=== PATIENT | female | born 1975 | race Caucasian/White ===

== ENCOUNTER → 2020-07-19 13:47 | Outpatient (BNVA) | payer MEDICAID, SELFPAY | PROVIDERS: PCP Family Medicine; Visit Provider Nurse Practitioner Family | DX: Z76.89 Persons encountering health services in other specified circumstances (principal) ==

== ENCOUNTER → 2020-07-27 15:27 | Outpatient (BNVA) | payer MEDICAID, SELFPAY | PROVIDERS: PCP Family Medicine; Visit Provider Surgery | DX: K64.4 Residual hemorrhoidal skin tags (principal); K64.8 Other hemorrhoids | CPT/HCPCS: 46600; 99202 ==

== ENCOUNTER 2020-09-02 07:00 | Day surgery (SDC) | payer MEDICAID, SELFPAY ==
[2020-08-29 10:29] VITALS: BMI 25.0
--- NOTE | 2020-08-31 14:17 | P.CONAN_ITS ---
Documented by User: Amparo Bryant 08/31/20 14:18 HPI - Anesthesia Eval Consult details Narrative: 45yo F for Hemorrhoidectomy PMFSH Active Problems Active Problems: All Active Problems (Updated 08/29/20 @ 10:27 by Sonia Rangel) Bleeding hemorrhoids (Acute) Hemorrhoid (Acute) Past Medical History Medical History Bleeding hemorrhoids Constipation Hemorrhoid History of anxiety Family History Family History Father Hx of tongue cancer Mother Alive and well Surgical History Surgical History History of tonsillectomy History of tubal ligation Social History Social History Are you a primary manager critical care to a significant other at home: No Do you presently have visiting nurse or other home services: No Alcohol intake: current Alcohol intake frequency: holidays/special occasions only Alcohol type: beer Smoking Status: Current every day smoker Tobacco Type: Cigarette Packs Per Day: 1 Cigarettes Per Day: 20.0 Years Smoked: 20+ Smoked in Last 30 Days: Yes Patient Interested in Nicotine Replacement: No Patient Given Instructions on How to Stop Smoking: Yes Date Education Initiated: 08/29/20 Use of substances other than those prescribed or required for medical reasons: No Have you been hit, kicked, punched, or otherwise hurt by someone within the past year? If so, by whom?: No Advance Directives: No Advance Directives Information Provided: No Advance Directives on File: No Recently lost weight without trying: No Meds Allergies Allergy/AdvReac Type Severity Reaction Status Date / Time No Known Allergies Allergy Verified 09/02/20 07:12 [No Known Allergies*] Exam Exam Date and Time: August 31, 2020 1417 Height,Weight and Vital Signs: Height 5 ft 3 in Weight 63.957 kg Assessment and Plan Assessment Anesthesia Assessment: Chart Reviewed Documented by User: Rebecca Albarado 09/02/20 07:51 PMFSH Past Medical History Medical History Bleeding hemorrhoids Constipation Hemorrhoid History of anxiety Family History Family History Father Hx of tongue cancer Mother Alive and well Surgical History Surgical History History of tonsillectomy History of tubal ligation Social History Social History Are you a primary manager critical care to a significant other at home: No Do you presently have visiting nurse or other home services: No Alcohol intake: current Alcohol intake frequency: holidays/special occasions only Alcohol type: beer Smoking Status: Current every day smoker Tobacco Type: Cigarette Packs Per Day: 1 Cigarettes Per Day: 20.0 Years Smoked: 20+ Smoked in Last 30 Days: Yes Patient Interested in Nicotine Replacement: No Patient Given Instructions on How to Stop Smoking: Yes Date Education Initiated: 08/29/20 Use of substances other than those prescribed or required for medical reasons: No Have you been hit, kicked, punched, or otherwise hurt by someone within the past year? If so, by whom?: No Advance Directives: No Advance Directives Information Provided: No Advance Directives on File: No Recently lost weight without trying: No Meds Allergies Allergy/AdvReac Type Severity Reaction Status Date / Time No Known Allergies Allergy Verified 09/02/20 07:12 [No Known Allergies*] Exam Airway Mallampati Class: II TM Dist: >3cm Neck ROM: Full
--- NOTE | 2020-09-02 07:22 | MHC.SHP ---
Pre-Procedural Eval Section B Chief Complaint: bleeding hemorrhoids Allergies: Allergies Allergy/AdvReac Type Severity Reaction Status Date / Time No Known Allergies Allergy Verified 09/02/20 07:12 [No Known Allergies*] Plan I have reviewed the history and physical and performed a pertinent physical examination on my patient. No changes have occurred unless specified.
--- NOTE | 2020-09-02 07:24 | MHC.SHP ---
Pre-Procedural Eval Section B Chief Complaint: bleeding hemorrhoids Details of Present Illness: has bleeding and painful hemorrhoids Relevant Family History (Specify if Yes): No Relevant Social History: None Present Medications: see Short Stay Collaborative assessment Medical History: No relevant PMH History of Previous Operations: No relevant previous surgery Allergies: Allergies Allergy/AdvReac Type Severity Reaction Status Date / Time No Known Allergies Allergy Verified 09/02/20 07:12 [No Known Allergies*] Review of Systems Sugical H&P ROS: Negative: Constitution, Cardiovascular, Respiratory, Neurological, Psychiatric, Hem-Onc, Allergic/Immunologic, Gastrointestinal, Genitourinary, Musculoskeletal, Integumentary, Endocrine and Eyes/Ears/Nose/Throat Exam Surgical H&P Exam: Normal: HEENT, Normal: Heart, Normal: Lungs, Normal: Extremities, Normal: Abdomen, Normal: Skin and Normal: Neurological Plan Diagnosis/Plan: Unchanged I have reviewed the history and physical and performed a pertinent physical examination on my patient. No changes have occurred unless specified.
[2020-09-02 07:25] VITALS: BP 124/75; PULSE 77; RESP 16; TEMP 36.7; O2SAT 98
[2020-09-02] MEDS: Lactated Ringers 1,000 ML 100 ML IVCONT (07:33)
--- NOTE | 2020-09-02 09:35 | W.PM.OPN ---
Operative Note Operative Note Date of Service: 09/02/20 Narrative: PREOP DIAGNOSIS: INTERNAL EXTERNAL HEMORRHOIDS POSTOP DIAGNOSIS: THE SAME PROCEDURE DONE: EXAM UNDER ANESTHESIA, HEMORRHOIDECTOMY SURGEON: JOHNIE SINGH MD ANESTHESIA: GENERAL VIA ENDOTRACHEAL TUBE The patient is a 45-year-old female who has had chronic problems with her hemorrhoids. She came to the office because of a long history of pain, swelling, discomfort and bleeding from her hemorrhoids since her last . Examination in the office revealed a bulky hemorrhoid column left anterior. She wanted this removed. She understood technique of the procedure. She was aware of the risks, benefits, and alternatives. She was brought to the operating room and placed in prone char-knife position under general anesthesia via endotracheal tube. A surgical time-out was done. The patient received Cefotan 2 g IV preoperatively. I inserted the Natali Krueger retractor into the anal canal and I examined the anal circumferentially. Again, this hemorrhoidal column on the anterior aspect of the left side was noted and appeared to be a mix of internal external hemorrhoids. I applied Shultz graspers to this to retract this into the field of view. I made a figure-eight stitch at its pedicle using chromic 3-0. I made an incision around this hemorrhoidal column to with the perianal skin using blade 15. I excised this hemorrhoidal column above the plane of sphincters using scissors. I closed this incision using a running chromic 0 stitch. Additional hemostatic [id number] sutures were placed I examined the entire anal canal again circumferentially. There were no other hemorrhoid columns that were of significant size that were seen. There were no fissures or any other lesions. I infiltrated the perianal area with Marcaine 0.5% for possible MILI. The procedure was then completed. The patient tolerated well. There were no complications noted. Initial fine counts sponge and instruments were correct. Estimated blood loss about 10 cc. The patient was extubated without difficulty and transferred to the recovery room with stable vital signs.
[2020-09-02 09:42] VITALS: BP 138/84; PULSE 69; RESP 16; TEMP 36.1; O2SAT 98
--- NOTE | 2020-09-02 09:42 | PM.OP ---
Brief Operative Note Date of Service: 09/02/20 Pre-op diagnosis: Internal and external hemorrhoids Post-op diagnosis: same Procedure: EUA, hemorrhoidectomy Surgeon: Kareem Arce MD Anesthesia: GETA Estimated blood loss (mL): 10 Pathology: other (Hemorrhoid) Condition: stable Disposition: PACU
[2020-09-02 09:47] VITALS: BP 121/80; PULSE 76; RESP 18; O2SAT 97
[2020-09-02 09:52] VITALS: BP 126/82; PULSE 56; RESP 18; O2SAT 97
[2020-09-02 09:57] VITALS: BP 129/80; PULSE 58; RESP 18; O2SAT 96
[2020-09-02 10:12] VITALS: BP 123/78; PULSE 56; RESP 20; TEMP 36.1; O2SAT 99
== END 2020-09-02 11:00 | disposition home or self-care (01) ==
PROVIDERS: PCP Internal Medicine; Visit Provider Surgery
PROC: (CPT 46255; principal; 2020-09-02 08:40)
DX: K64.8 Other hemorrhoids (principal); K64.4 Residual hemorrhoidal skin tags
CPT/HCPCS: 46255; 88304; J1100; J2250; J2405; J3010

== ENCOUNTER → 2020-09-15 09:47 | Outpatient (BNVA) | payer MEDICAID, SELFPAY | PROVIDERS: PCP Internal Medicine; Visit Provider Surgery | DX: K64.9 Unspecified hemorrhoids (principal) | CPT/HCPCS: 99212 ==

== ENCOUNTER 2020-12-12 13:38 | Emergency (ER) | payer MEDICAID, SELFPAY ==
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
[2020-12-12 14:33] VITALS: BP 135/93; PULSE 90; RESP 17; TEMP 36.6; O2SAT 98; BMI 24.7
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
[2020-12-12] MEDS: Ibuprofen 600 MG TABLET PO (16:07)
[2020-12-12] MEDS: LORazepam 1 MG TABLET PO (16:08)
[2020-12-12] MEDS: oxyCODONE HCl Immed Release 5 MG TABLET PO (16:08)
== END 2020-12-12 16:47 | disposition home or self-care (01) ==
PROVIDERS: Emergency Provider Emergency Medicine
DX: S62.327A Displaced fracture of shaft of fifth metacarpal bone, left hand, initial encounter for closed fracture (principal); Y04.2XXA Assault by strike against or bumped into by another person, initial encounter; Y93.9 Activity, unspecified; Y92.9 Unspecified place or not applicable; Y99.9 Unspecified external cause status
CPT/HCPCS: 29125; 73130; 99283

== ENCOUNTER → 2020-12-14 08:30 | Outpatient (BNVA) | payer MEDICAID, SELFPAY | PROVIDERS: Visit Provider Physician Assistant | DX: S62.307A Unspecified fracture of fifth metacarpal bone, left hand, initial encounter for closed fracture (principal) | CPT/HCPCS: 99202 ==

== ENCOUNTER 2020-12-22 12:18 | Day surgery (SDC) | payer MEDICAID, SELFPAY ==
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
[2020-12-22] VITALS (15 sets, daily range): BP systolic 120–163; BP diastolic 71–91; PULSE 44–62; RESP 16–20; TEMP 36.3–37.1; O2SAT 96–99; BMI 24.7
--- NOTE | ~2020-12-22 | FL_ITS ---
EXAMINATION: XR FLUOROSCOPY WITH IMAGES CLINICAL INFORMATION: Fracture fixation COMPARISON: 12/12/2020 TECHNIQUE: Fluoroscopy performed by Dr Bonilla. Fluoroscopy time: 37.6 seconds DAP: 83341.2 mGycm2 Images: 5 FINDINGS: Images demonstrate placement of 2 Liliane wires across the fifth metacarpal diametaphyseal fracture with improved alignment of the fracture fragments of the last images. 1 of the Liliane wires transfixes the fourth and fifth metacarpal heads, the other Liliane wire courses along the long axis of the fifth metacarpal entering through the fifth metacarpal head. FL/FL guidance in OR IMPRESSION: Intraoperative fluoroscopy provided for Liliane wire pin fixation of the fifth metacarpal fracture as described. Please see operative report.
--- NOTE | 2020-12-22 14:18 | PC.NURSE ---
CARE TEAM ÁNGELA SPOKE TO PATIENT BY BEDSIDE.
--- NOTE | 2020-12-22 14:20 | PC.NURSE ---
PATIENT BEING REFERRED TO A [facility] WILL CALL TO FOLLOW UP WITH DAVIDE MONTOYA.
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
[2020-12-22] MEDS: Lactated Ringers 1,000 ML 100 ML IVCONT (14:41)
--- NOTE | 2020-12-22 17:54 | P.OP_ITS ---
Operative Note Operative Note Date of Service: 12/22/20 Narrative: Operative Note Narrative: Preop diagnosis: 1. Left 5th Metacarpal shaft fracture Postop diagnosis: Same Procedure: 1. Left 5th Metacarpal fracture closed reduction percutaneous pinning 2. Ulnar nerve block Surgeon: Alexus Bonilla MD Anesthesia: General Findings: Metacarpal fracture Implants: 0.062 K-wires times 1 0.045 K-wire x1 Tourniquet time: None EBL: Minimal Specimen: None Drains: None Complications: None Disposition: Brought to the recovery room in stable condition Plan: Follow-up in 10-14 days for a wound check, postop radiographs and for placement in a short-arm finger spica cast Anticipate K-wire removal in 4 weeks based on interval bony healing Educate the patient that full fracture healing anticipated in approximately 8-12 weeks. Indications: The patient is 45 years old with left distal 5th metacarpal shaft fracture . The risks and benefits of operative treatment, including but not limited to risk of damage to blood vessels, nerves, tendons, infection, recurrence, delayed or nonunion of fracture, persistent pain or numbness, incomplete resolution of preoperative symptoms, or need for further surgery were discussed with the patient and they wished to proceed with surgery. Procedure: Once consent was obtained patient was brought back to the operating suite and placed in the operating table in a supine position. . Perioperative antibiotics and general anesthesia was administered by the anesthesia team. A tourniquet was applied to the proximal aspect of the left upper extremity and the limb was prepped and draped in a standard surgical fashion. Tourniquet was not inflated during the case. The FluoroScan was used during the case to assist with our fracture reduction and placement of all implants. A closed reduction was performed on the patient's left 5th metacarpal shaft fracture. I placed a single 0.062 K-wire retrograde through the head of the left 5th metacarpal extending proximally across the fracture site to the base of the metacarpal. A 0.045 K-wire was placed transversely through the neck of the 5th metacarpal extending into the head and neck of the 4th metacarpal. Fracture alignment was assessed for both angular and rotational malalignment. Once satisfied with our fracture reduction and implant placement, the K-wires were bent and cut short and pin caps applied. Final fluoroscopic images were then obtained. The wounds were copiously irrigated with normal saline. An ulnar nerve block was then performed by infiltrating about the ulnar nerve at the wrist with some core% plain Marcaine for postop pain control. A Sterile dressing and short volar splint was applied. The patient appears to have tolerated the procedure well and with no complications. All digits were well vascularized at the co nclusion of the case.
--- NOTE | 2020-12-22 17:54 | MHC.SHP ---
Pre-Procedural Eval Section B Chief Complaint: Left 5th metacarpal fracture Allergies: Allergies Allergy/AdvReac Type Severity Reaction Status Date / Time No Known Allergies Allergy Verified 12/14/20 08:33 [No Known Allergies*] Plan I have reviewed the history and physical and performed a pertinent physical examination on my patient. No changes have occurred unless specified.
[2020-12-22] MEDS: Ketorolac Tromethamine 15 MG/ML VIAL 30 MG IV (19:20)
[2020-12-22] MEDS: oxyCODONE HCl Immed Release 5 MG TABLET PO (19:37)
[2020-12-22] MEDS: fentaNYL citrate/PF 100 MCG/2 ML VIAL 50 MCG IVPUSH ×3 (19:56→20:26)
== END 2020-12-22 21:10 | disposition home or self-care (01) ==
PROVIDERS: Visit Provider Orthopaedic Surgery
PROC: (CPT 26608; principal; 2020-12-22 14:10)
DX: S62.327A Displaced fracture of shaft of fifth metacarpal bone, left hand, initial encounter for closed fracture (principal); Y04.0XXA Assault by unarmed brawl or fight, initial encounter; Y93.89 Activity, other specified; Y92.9 Unspecified place or not applicable; Y99.8 Other external cause status; F17.210 Nicotine dependence, cigarettes, uncomplicated
CPT/HCPCS: 26608; J0131; J0690; J1100; J1885; J2405; J3010

== ENCOUNTER → 2020-12-29 12:33 | Outpatient (BNVA) | payer MEDICAID, SELFPAY | PROVIDERS: Visit Provider Physician Assistant | DX: S62.307D Unspecified fracture of fifth metacarpal bone, left hand, subsequent encounter for fracture with routine healing (principal) | CPT/HCPCS: 99202 ==

== ENCOUNTER 2021-01-04 08:28 | Outpatient (REF) | payer MEDICAID, SELFPAY ==
--- NOTE | ~2021-01-04 | XR_ITS ---
EXAMINATION: XR HAND, LEFT CLINICAL INFORMATION: Pain. Fracture. COMPARISON: 12/12/20. 12/22/20. TECHNIQUE: PA, lateral, and oblique views of the left hand. FINDINGS: The fracture of the neck of the fifth metacarpal has been fixed with a longitudinal surgical pin across the fracture and a second pin transfixing the head of the metacarpal to the head of the fourth metacarpal. Alignment is essentially anatomic and unchanged from the intraoperative study. There is no visible callus. XR/XR hand LT min 3V IMPRESSION: Fracture of the neck of the left fifth metacarpal in stable essentially anatomic alignment status post surgical pinning.
== END 2021-01-04 08:29 | disposition home or self-care (01) ==
LOC: HO.HOSX 08:28
PROVIDERS: Visit Provider Orthopaedic Surgery
DX: S62.307D Unspecified fracture of fifth metacarpal bone, left hand, subsequent encounter for fracture with routine healing (principal)
CPT/HCPCS: 73130; 99212

== ENCOUNTER 2021-01-25 10:25 | Outpatient (REF) | payer MEDICAID, SELFPAY ==
--- NOTE | ~2021-01-25 | XR_ITS ---
EXAMINATION: XR HAND, LEFT CLINICAL INFORMATION: Pain. COMPARISON: 01/04/2021 and studies dating back to 01/31/2017. TECHNIQUE: PA, lateral, and oblique views of the left hand. FINDINGS: There is stable appearance of pins in place for oblique fracture of the distal left 5th metacarpal. One pin is seen traversing the fracture with the second pin seen traversing the 4th and 5th metatarsal heads for stabilization. Lucent line remains without definite bony union identified. XR/XR hand LT min 3V IMPRESSION: Stable appearance of pins and alignment for fixation of left 5th metacarpal fracture.
== END 2021-01-25 10:26 | disposition home or self-care (01) ==
LOC: HO.HOSX 10:25
PROVIDERS: Visit Provider Orthopaedic Surgery
DX: S62.307A Unspecified fracture of fifth metacarpal bone, left hand, initial encounter for closed fracture (principal)
CPT/HCPCS: 73130; 99212

== ENCOUNTER 2021-02-22 08:22 | Outpatient (REF) | payer MEDICAID, SELFPAY ==
--- NOTE | ~2021-02-22 | XR_ITS ---
EXAMINATION: XR HAND, LEFT CLINICAL INFORMATION: Fracture 5th metacarpal. Pain. Follow up. COMPARISON: Radiographs left hand 01/25/2021, 01/04/2021. TECHNIQUE: Left hand is imaged in 3 views. FINDINGS: The 2 pins have been removed since prior exam 01/25/2021. The oblique fracture neck 5th metacarpal is well visualized. No visible bridging callus. Alignment appears stable. No destructive process. No new bony abnormality. XR/XR hand LT min 3V IMPRESSION: Left 5th metacarpal fracture unchanged in alignment. No visible bridging callus at this time.
== END 2021-02-22 08:23 | disposition home or self-care (01) ==
LOC: HO.HOSX 08:22
PROVIDERS: Visit Provider Orthopaedic Surgery
DX: S62.307A Unspecified fracture of fifth metacarpal bone, left hand, initial encounter for closed fracture (principal); M25.642 Stiffness of left hand, not elsewhere classified; M79.642 Pain in left hand
CPT/HCPCS: 73130; 99212

== ENCOUNTER 2021-02-27 11:30 | Outpatient (RCR) | payer MEDICAID, SELFPAY ==
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
--- NOTE | 2021-03-14 08:51 | MHC.OT.DC ---
[address] [phone] F: [phone] Occupational Therapy Discharge Note Provider: Dr Bonilla Diagnosis: Left D5 MC fx, post-op repair Date of Surgery: 12/22/20 Date of Evaluation: 02/07/21 Date of Discharge: 03/13/21 Treatments to Date: 5 Cancellations to Date: 2 No Shows to Date: 3 Discharge Status: Visit Non-compliance Discharge Summary: Arely has been seen in OT for management of L D5 MC fx. She is now about 11 weeks post-op, still w/ flex contracture to MCP and IPs, but showing improvements in tissue and flexion range. Pt has been motivated, but is guarded and needs encouragement to increase exercises as part of HEP. She has not attended the past five visit, we will be discharging her at this time. Electronically Signed By: Renay Alexander OTR/L Reviewed/agree with student documentation: N/A Therapist: Please Sign and return to therapist, thank you for your referral.
== END 2021-03-14 08:52 | disposition home or self-care (01) ==
LOC: HO.OT 11:30
PROVIDERS: PCP Internal Medicine; Visit Provider Orthopaedic Surgery
DX: S62.307D Unspecified fracture of fifth metacarpal bone, left hand, subsequent encounter for fracture with routine healing (principal)
CPT/HCPCS: 29130; 97110; 97140; 97165; 97760

== ENCOUNTER 2021-05-07 13:11 | Emergency (ER) | payer MEDICAID, SELFPAY ==
--- NOTE | ~2021-05-07 | US_ITS ---
EXAM: Pelvic Ultrasound CLINICAL INDICATION: Heavy bleeding since March COMPARISON: Pelvic ultrasound February 18, 2020 TECHNIQUE: The pelvis was evaluated using transabdominal and transvaginal imaging. Color Doppler imaging and spectral analysis of the left ovary was also performed. FINDINGS: The uterus measures 10.1 x 4.3 x 5.8 cm in longitudinal by AP by transverse dimension. The endometrial stripe is heterogeneous in appearance, measuring up to 1.5 cm in thickness. Small cystic foci are also noted within the endometrium. The left ovary measures approximately 2.1 x 2.8 x 3.0 cm and contains a simple appearing 3 cm cyst. Spectral analysis reveals normal arterial and venous waveforms in the left ovary. The right ovary measures approximately 2.6 x 1.1 x 1.5 cm and is unremarkable in appearance. A small amount of free fluid is noted adjacent to the right ovary, however, there is no gross free pelvic fluid identified within the pelvic cul-de-sac. US/US pelvic and transvaginal IMPRESSION: 1. Thickened heterogeneous endometrium containing several cystic foci. Clinical correlation recommended. Direct inspection may be warranted. 2. Simple appearing 3 cm left ovarian cyst. 3. A small amount of free fluid is noted adjacent to the right ovary, nonspecific.
[2021-05-07 13:23] VITALS: BP 133/79; PULSE 77; RESP 18; TEMP 37; O2SAT 99; BMI 24.7
[2021-05-07 13:48] LABS: UPreg QC Valid YES; Urine Pregnancy NEGATIVE (NEGATIVE)
[2021-05-07 13:49] LABS: Appearance Urine CLOUDY; Color Urine RED; Glucose Urine UA NEG (NEG); PH 6.5 (5.0-8.0); Specific Gravity - Urine 1.025 (1.005-1.025); UACC Culture Trigger YES; Urine Blood 3+ (NEG); Urine Ketones NEG (NEG); Urine Protein 1+ MG/DL (NEG-TRACE)
--- NOTE | 2021-05-07 13:57 | ED_ITS ---
HPI - Female Genitourinary General Chief complaint: Vaginal Bleeding Stated complaint: vag bleeding/ovarian cyst Time Seen by Provider: 05/07/21 13:55 Source: patient Mode of arrival: ambulatory Limitations: no limitations History of Present Illness MD elicited complaint: vaginal bleeding Pertinent past history: other (ovarian cysts) Onset (ago): week(s) (3+ ) Location of symptoms: suprapubic Severity: mild Quality of pain: cramping Consistency: intermittent Vaginal discharge: none Vaginal bleeding: moderate, heavy and clots Exacerbating factors: none Relieving factors: none Associated symptoms: weakness Treatment prior to arrival: none Patient : No Related Data Previous Rx's Medication Instructions Recorded dicyclomine 10 mg capsule 10 mg PO TID #90 cap 07/19/20 methylcellulose (laxative) 500 mg 500 mg PO DAILY #30 tab 07/19/20 tablet (Citrucel) phenylephrine 0.25 %-mineral oil 1 appl [place] BID-QID PRN #28 g 07/19/20 14 %-petrolatm 74.9 % rectal ointment (Preparation H) docusate sodium 100 mg capsule 100 mg PO BID #60 cap 09/02/20 (Colace) ibuprofen 600 mg tablet 600 mg PO Q6H PRN #30 tab 09/02/20 oxycodone-acetaminophen 5 mg-325 1 - 2 tab PO Q4-6H PRN #30 tab 09/02/20 mg tablet (Percocet) docusate sodium 100 mg capsule 100 mg PO BID #60 cap 09/15/20 (Colace) ibuprofen 600 mg tablet 600 mg PO TID PRN #20 tab 09/15/20 ibuprofen 600 mg tablet 600 mg PO Q6H PRN #20 tab 12/12/20 lorazepam 1 mg tablet (Ativan) 1 mg PO BID PRN #7 tab 12/12/20 oxycodone 5 mg tablet 5 mg PO Q6H PRN #10 tab 12/12/20 oxycodone-acetaminophen 5 mg-325 1 - 2 tab PO Q6H PRN #20 tab 12/22/20 mg tablet (Percocet) medroxyprogesterone 10 mg tablet 10 mg PO DAILY 9 Days #9 tab 05/07/21 (Provera) Allergies Allergy/AdvReac Type Severity Reaction Status Date / Time No Known Allergies Allergy Verified 05/07/21 13:23 [No Known Allergies*] Review of Systems Review of Systems: Constitutional : No Fever, No Chills ENT/Mouth : No sore throat, No Rhinorrhea Eyes: No Eye Pain, No Redness Cardiovascular : No Chest Pain, No SOB Respiratory : No Cough, No Sputum, No Wheezing Gastrointestinal :no Nausea, No Vomiting, No Diarrhea, no abdominal pain, Genitourinary : positive irregular bleeding, No Dysuria, No Urinary Frequency, positive pelvic pain Musculoskeletal : No Myalgias Skin : No rash Neuro : No Weakness, No Headache Psych : No Anxiety/Panic, No Depression Heme/Lymph: No bruising, No Lymphadenopathy Endocrine : No Polyuria, No Polydipsia All other systems reviewed and are negative [facility] Past Medical History Attestation statement: The following information was validated with the patient. Medical History Bleeding hemorrhoids Constipation Hemorrhoid History of anxiety Surgical History History of tonsillectomy History of tubal ligation Family History Family History Father Hx of tongue cancer Mother Alive and well Social History Social History Are you a primary vision care associate to a significant other at home: No Do you presently have visiting nurse or other home services: No Alcohol intake: never Patient Tobacco Use Status: Current everyday Tobacco user Tobacco use type: Cigarette Cigarette Packs Per Day: 1 Cigarettes Per Day: 6 Years Smoked: 20+ Use of substances other than those prescribed or required for medical reasons: No Advance Directives: No Advance Directives Information Provided: No Patient : No Physical Exam Vital Signs: Vital Signs: Last Vital Signs Temp 98.2 F 05/07/21 15:24 Pulse 68 05/07/21 15:24 Resp 14 05/07/21 15:24 BP 147/80 H 05/07/21 15:24 Pulse Ox 98 05/07/21 15:24 Body Mass Index 24.7 Appearance: Alert. Oriented X3. No acute distress. Eyes: Pupils equal, round and reactive to light. conjunctiva ENT: Pharynx normal. Neck: Normal inspection. Neck supple. CVS: Normal heart rate and rhythm. Pulses normal. Respiratory: No respiratory distress. Breath sounds normal. Abdomen: Soft and nontender. Skin: Skin warm and dry. pale skin color. Normal skin turgor. Extremities: No lower extremity edema. No calf ttp Neuro: Oriented X 3. No motor deficit. No sensory deficit. Course Course Course Narrative: no sig bleeding VS stable, H/H stable MDM - Female Genitourinary MDM Narrative Medical decision making narrative: 46 yo female hx of ovarian cysts not on any form of OCPs or control comes in with prolonged vaginal bleeding - no CP/SOB but does feel weak at times. This has never happened before - at this time labs, UPT, US to evaluate cysts/ovaries. Possible start of Provera pending workup. Will need OBGYN follow up Lab Data Result diagrams: 05/07/21 15:22 05/07/21 15:22 Labs: Lab Results 05/07/21 05/07/21 05/07/21 Range/Units 13:34 13:34 15:22 WBC 11.3 H (4.8-10.8) X10*3/uL RBC 4.17 L (4.20-5.50) X10*6/uL Hgb 12.9 (12.0-16.0) g/dl Hct 38.3 (37-47) % MCV 91.8 (80-98) fL MCH 30.9 (27.0-33.0) pg MCHC 33.7 (31.0-35.0) g/dl RDW 12.9 (11.0-16.0) % Plt Count 459 H (160-400) X10*3/uL MPV 8.1 L (9.4-12.3) fL Immature Gran % (Auto) 0.3 (0.0-0.4) % Neut % (Auto) 60.1 (45-73) % Lymph % (Auto) 31.1 (20-40) % [place] % (Auto) 6.1 (2-11) % Eos % (Auto) 1.8 (0-4) % Baso % (Auto) 0.6 (0-2) % Lymph # (Auto) 3.5 (1.2-4.9) X10*3/uL [place] # (Auto) 0.7 (0.1-1.2) X10*3/uL Eos # (Auto) 0.2 (0.0-0.4) X10*3/uL Baso # (Auto) 0.1 (0.0-0.2) X10*3/uL Abs Immat Gran (auto) 0.03 (0.00-0.03) X10*3/uL Absolute Neuts (auto) 6.8 (2.0-8.3) X10*3/uL Absolute Nucleated RBC 0.000 (0.0-0.012) X10*3/uL Nucleated RBC % (auto) 0.0 (0.0-0.2) /100WBC Sodium (135-145) mmol/L Potassium (3.3-5.1) mmol/L Chloride (96-108) mmol/L Carbon Dioxide (22-29) mmol/L Anion Gap (12-20) BUN (9-16) mg/dL Creatinine (0.5-1.4) mg/dL Estim Creat Clear Calc Estimated GFR Random Glucose (60-115) mg/dL Calcium (8.4-10.2) mg/dL Urine Color RED Urine Appearance CLOUDY Urine pH 6.5 (5.0-8.0) Ur Specific [place] 1.025 (1.005-1.025) Urine Protein 1+ H (NEG-TRACE) MG/DL Urine Glucose (UA) NEG (NEG) MG/DL Urine Ketones NEG (NEG) MG/DL Urine Blood 3+ H (NEG) Urine Nitrite TNP Ur Leukocyte Esterase TNP Urine RBC TNTC H (0) /HPF Urine WBC 0 (0-4) /HPF Ur Squamous Epith Cells 1+ /LPF Urine Bacteria TRACE /LPF Urine Test NEGATIVE (NEGATIVE) 05/07/21 Range/Units 15:22 WBC (4.8-10.8) X10*3/uL RBC (4.20-5.50) X10*6/uL Hgb (12.0-16.0) g/dl Hct (37-47) % MCV (80-98) fL MCH (27.0-33.0) pg MCHC (31.0-35.0) g/dl RDW (11.0-16.0) % Plt Count (160-400) X10*3/uL MPV (9.4-12.3) fL Immature Gran % (Auto) (0.0-0.4) % Neut % (Auto) (45-73) % Lymph % (Auto) (20-40) % [place] % (Auto) (2-11) % Eos % (Auto) (0-4) % Baso % (Auto) (0-2) % Lymph # (Auto) (1.2-4.9) X10*3/uL [place] # (Auto) (0.1-1.2) X10*3/uL Eos # (Auto) (0.0-0.4) X10*3/uL Baso # (Auto) (0.0-0.2) X10*3/uL Abs Immat Gran (auto) (0.00-0.03) X10*3/uL Absolute Neuts (auto) (2.0-8.3) X10*3/uL Absolute Nucleated RBC (0.0-0.012) X10*3/uL Nucleated RBC % (auto) (0.0-0.2) /100WBC Sodium 140 (135-145) mmol/L Potassium 4.2 (3.3-5.1) mmol/L Chloride 105 (96-108) mmol/L Carbon Dioxide 27 (22-29) mmol/L Anion Gap 12 (12-20) BUN 10 (9-16) mg/dL Creatinine 0.82 (0.5-1.4) mg/dL Estim Creat Clear Calc 78.5 Estimated GFR > 60 Random Glucose 93 (60-115) mg/dL Calcium 9.4 (8.4-10.2) mg/dL Urine Color Urine Appearance Urine pH (5.0-8.0) Ur Specific [place] (1.005-1.025) Urine Protein (NEG-TRACE) MG/DL Urine Glucose (UA) (NEG) MG/DL Urine Ketones (NEG) MG/DL Urine Blood (NEG) Urine Nitrite Ur Leukocyte Esterase Urine RBC (0) /HPF Urine WBC (0-4) /HPF Ur Squamous Epith Cells /LPF Urine Bacteria /LPF Urine Test (NEGATIVE) Discharge Plan Discharge Clinical Impression: Dysfunctional uterine bleeding Patient Disposition: Home, Self-Care Instructions: Dysfunctional Uterine Bleeding (ED) Additional Instructions: return to ED for any worsening symptoms or concerns 1.? Thickened heterogeneous endometrium containing several cystic foci. Clinical correlation recommended. Direct inspection may be warranted. 2.? Simple appearing 3 cm left ovarian cyst. 3.? A small amount of free fluid is noted adjacent to the right ovary, nonspecific. you are not anemic you will need to see OBGYN Prescriptions: New medroxyprogesterone [Provera] 10 mg tablet 10 mg PO DAILY 9 Days Qty: 9 RF: 0 No Action oxycodone-acetaminophen [Percocet] 5-325 mg tablet 1 - 2 tab PO Q4-6H PRN (Reason: pain) Qty: 30 RF: 0 docusate sodium [Colace] 100 mg capsule 100 mg PO BID Qty: 60 RF: 2 ibuprofen 600 mg tablet 600 mg PO Q6H PRN (Reason: pain) Qty: 30 RF: 0 oxycodone 5 mg tablet 5 mg PO Q6H PRN (Reason: pain) Qty: 10 RF: 0 lorazepam [Ativan] 1 mg tablet 1 mg PO BID PRN (Reason: anxiety) Qty: 7 RF: 0 ibuprofen 600 mg tablet 600 mg PO Q6H PRN (Reason: pain) Qty: 20 RF: 0 oxycodone-acetaminophen [Percocet] 5-325 mg tablet 1 - 2 tab PO Q6H PRN (Reason: pain (scale score 4-6)) Qty: 20 RF: 0 Preparation H 0.25-14-74.9 % ointment 1 appl [place] BID-QID PRN (Reason: hemorrhoids) Qty: 28 RF: 2 dicyclomine 10 mg capsule 10 mg PO TID Qty: 90 RF: 2 Citrucel 500 mg tablet 500 mg PO DAILY Qty: 30 RF: 2 ibuprofen 600 mg tablet 600 mg PO TID PRN (Reason: pain) Qty: 20 RF: 1 docusate sodium [Colace] 100 mg capsule 100 mg PO BID Qty: 60 RF: 0 Referrals: Johnny Encarnacion MD [Physician] - 1 week Stand Alone Forms: Work/School Release
[2021-05-07 14:00] LABS: Bacteria Urine TRACE /LPF; RBC Urine TNTC /HPF (0); Squamous Epithelial Cell Urine 1+ /LPF; WBC Urine 0 /HPF (0-4)
[2021-05-07 15:24] VITALS: BP 147/80; PULSE 68; RESP 14; TEMP 36.8; O2SAT 98
[2021-05-07 15:27] LABS: MANUAL DIFF FLAG NO
[2021-05-07 15:28] LABS: Basophils Absolute Auto 0.1 X10*3/uL (0.0-0.2); Basophils Percent Auto 0.6 % (0-2); Eosinophils Absolute Auto 0.2 X10*3/uL (0.0-0.4); Eosinophils Percent Auto 1.8 % (0-4); Hematocrit 38.3 % (37-47); Hemoglobin 12.9 g/dl (12.0-16.0); Imm Gran Abs Auto 0.03 X10*3/uL (0.00-0.03); Imm Gran Pct Auto 0.3 % (0.0-0.4); Lymphocytes Absolute Auto 3.5 X10*3/uL (1.2-4.9); Lymphocytes Percent Auto 31.1 % (20-40); Mean Corpuscular HGB Conc 33.7 g/dl (31.0-35.0); Mean Corpuscular Hemoglobin 30.9 pg (27.0-33.0); Mean Corpuscular Volume 91.8 fL (80-98); Mean Platelet Volume 8.1 fL (9.4-12.3); Monocytes Absolute Auto 0.7 X10*3/uL (0.1-1.2); Monocytes Percent Auto 6.1 % (2-11); Neutrophils Absolute Auto 6.8 X10*3/uL (2.0-8.3); Neutrophils Percent Auto 60.1 % (45-73); Platelet Count 459 X10*3/uL (160-400); Red Blood Count 4.17 X10*6/uL (4.20-5.50); Red Cell Distribution Width 12.9 % (11.0-16.0); White Blood Count 11.3 X10*3/uL (4.8-10.8)
[2021-05-07 15:42] LABS: Anion Gap 12 (12-20); Blood Urea Nitrogen 10 mg/dL (9-16); Calcium 9.4 mg/dL (8.4-10.2); Carbon Dioxide 27 mmol/L (22-29); Chloride 105 mmol/L (96-108); Creatinine Clr Calc Pharmacy 78.5; Estimated Glomerular Filt Rate > 60; Glucose Random 93 mg/dL (60-115); Potassium 4.2 mmol/L (3.3-5.1); Sodium 140 mmol/L (135-145)
[2021-05-07] MEDS: medroxyPROGESTERone Acetate 5 MG TABLET 10 MG PO (16:29)
== END 2021-05-07 16:36 | disposition home or self-care (01) ==
PROVIDERS: Emergency Provider Emergency Medicine
DX: N93.8 Other specified abnormal uterine and vaginal bleeding (principal)
CPT/HCPCS: 36415; 76830; 76856; 80048; 81001; 81025; 85025; 86850; 86900; 86901; 87086; 99284

== ENCOUNTER 2021-05-12 12:25 | Emergency (ER) | payer MEDICAID, SELFPAY | END 2021-05-12 14:54 | disposition left against medical advice (07) | PROVIDERS: Emergency Provider Emergency Medicine | DX: N93.8 Other specified abnormal uterine and vaginal bleeding (principal); R10.2 Pelvic and perineal pain ==

== ENCOUNTER 2021-05-15 11:40 | Outpatient (REF) | payer MEDICAID, SELFPAY ==
[2021-05-15 13:49] LABS: Hematocrit 36.2 % (37-47); Hemoglobin 12.1 g/dl (12.0-16.0); Mean Corpuscular HGB Conc 33.4 g/dl (31.0-35.0); Mean Corpuscular Volume 92.8 fL (80-98); Mean Platelet Volume 8.1 fL (9.4-12.3); Platelet Count 469 X10*3/uL (160-400); Red Cell Distribution Width 12.7 % (11.0-16.0); White Blood Count 14.9 X10*3/uL (4.8-10.8)
[2021-05-15 14:30] LABS: HCG Quantitative < 2 mIU/mL; TSH reflex Free T4 1.09 uIU/mL (0.32-4.0)
[2021-05-16 02:44] LABS: CT PCR NOT DETECTED (Not Detect.); NG PCR NOT DETECTED (Not Detect.)
[2021-05-17 16:41] LABS: HPV mRNA E6/E7 rflx Not Detected (Not Detected)
== END 2021-05-15 11:41 | disposition home or self-care (01) ==
LOC: HO.LAB 11:40
PROVIDERS: Visit Provider Obstetrics & Gynecology
DX: Z01.411 Encounter for gynecological examination (general) (routine) with abnormal findings (principal); Z11.51 Encounter for screening for human papillomavirus (HPV); Z11.3 Encounter for screening for infections with a predominantly sexual mode of transmission; N93.9 Abnormal uterine and vaginal bleeding, unspecified
CPT/HCPCS: 36415; 84443; 84702; 85027; 87491; 87591; 87624; 88142; 99212

== ENCOUNTER 2021-05-19 07:57 | Day surgery (SDC) | payer MEDICAID, SELFPAY ==
--- NOTE | 2021-05-18 12:10 | HO.ANESPROP2 ---
Documented by User: Amparo Bryant NP 05/18/21 12:11 HPI - Anesthesia Eval Consult details Narrative: 46yo F for D&C Hysteroscopy, Poss Polypectomy, Poss Myomectomy s/p finger ORIF 12/2020 with GA-LMA 4 PMFSH Active Problems Active Problems: All Active Problems (Updated 05/15/21 @ 12:50 by Johnny Encarnacion MD) Abnormal uterine bleeding (AUB) (Acute) Stiffness of left hand joint (Acute) Fracture of fifth metacarpal bone of left hand (Acute) Bleeding hemorrhoids (Acute) Hemorrhoid (Acute) Past Medical History Medical History Bleeding hemorrhoids Constipation Hemorrhoid History of anxiety Family History Family History Father Hx of tongue cancer Mother Alive and well Surgical History Surgical History H/O hand surgery History of tonsillectomy History of tubal ligation Social History Social History Are you a primary childcare administrator to a significant other at home: No Do you presently have visiting nurse or other home services: No Alcohol intake: never Patient Tobacco Use Status: Former Tobacco user Tobacco use type: Cigarette Cigarette Packs Per Day: 1 Cigarettes Per Day: 6 Years Smoked: 20+ Use of substances other than those prescribed or required for medical reasons: No Are you DNR?: No Advance Directives: No Advance Directives Information Provided: Yes Recently lost weight without trying: No Nutrition Risks: No Nutritional Risk Patient : No Meds Allergies Allergy/AdvReac Type Severity Reaction Status Date / Time No Known Allergies Allergy Verified 05/15/21 12:22 [No Known Allergies*] Exam Exam Date and Time: May 18, 2021 1210 Pertinent Lab Results Pertinent Lab Results: Laboratory Tests 05/07/21 05/15/21 15:22 13:33 WBC 14.9 H Hgb 12.1 Hct 36.2 L Plt Count 469 H Sodium 140 Potassium 4.2 Chloride 105 Carbon Dioxide 27 BUN 10 Creatinine 0.82 Assessment and Plan Assessment Anesthesia Assessment: Chart Reviewed Documented by User: Lynne Mills MD 05/19/21 10:34 PMFSH Past Medical History Medical History Bleeding hemorrhoids Constipation Hemorrhoid History of anxiety Family History Family History Father Hx of tongue cancer Mother Alive and well Family history of problems with anesthesia: No Surgical History Surgical History H/O hand surgery History of tonsillectomy History of tubal ligation History of Problems with Anesthesia: No Social History Social History Are you a primary childcare administrator to a significant other at home: No Do you presently have visiting nurse or other home services: No Alcohol intake: never Patient Tobacco Use Status: Former Tobacco user Tobacco use type: Cigarette Cigarette Packs Per Day: 1 Cigarettes Per Day: 6 Years Smoked: 20+ Use of substances other than those prescribed or required for medical reasons: No Are you DNR?: No Advance Directives: No Advance Directives Information Provided: Yes Recently lost weight without trying: No Nutrition Risks: No Nutritional Risk Patient : No Meds Allergies Allergy/AdvReac Type Severity Reaction Status Date / Time No Known Allergies Allergy Verified 05/15/21 12:22 [No Known Allergies*] Exam Height,Weight and Vital Signs: Height 5 ft 3 in Weight 70.307 kg Vital Signs Temp Pulse Resp BP Pulse Ox 98.0 F 79 16 113/75 97 05/19/21 08:38 05/19/21 08:38 05/19/21 08:38 05/19/21 08:38 05/19/21 08:38 Pertinent Lab Results Pertinent Lab Results: Laboratory Tests 05/07/21 05/15/21 15:22 13:33 WBC 14.9 H Hgb 12.1 Hct 36.2 L Plt Count 469 H Sodium 140 Potassium 4.2 Chloride 105 Carbon Dioxide 27 BUN 10 Creatinine 0.82 Lab Results 05/19/21 Range/Units 08:04 Urine Test NEGATIVE (NEGATIVE) Airway Mallampati Class: II TM Dist: >3cm Neck ROM: Full Heart: RRR Lungs: CTAB Assessment and Plan Assessment Anesthesia Assessment: Anesthesia Plan Discussed Final Anesthetic Review Family History of Problems with Anesthesia: No History of Problems with Anesthesia: No NPO: Yes ASA Class: II Final Preanesthetic Review: No Changes in Pt Med Stat, Meds/Allgs Chart Reviewed, Consent Obtained/Reviewed and Anes Risks/Benef Reviewed Patient Risk: Low Procedure Risk: Low Assessment/Block/Sedation in SS: Assess/Block/Sedation-SS Anesthetic Plan Anesthetic Plan: GA Disposition: Standard PACU
[2021-05-19] VITALS (7 sets, daily range): BP systolic 99–124; BP diastolic 62–75; PULSE 59–79; RESP 16–18; TEMP 36.3–36.7; O2SAT 97–100; BMI 27.4
[2021-05-19 08:23] LABS: UPreg QC Valid YES; Urine Pregnancy NEGATIVE (NEGATIVE)
--- NOTE | 2021-05-19 08:35 | MHC.SHP ---
Pre-Procedural Eval Section A Date of Service: 05/19/21 The patient is an INPATIENT: No Changes since office visit: No Cold of Flu in the past 2 weeks, No New Medical Problems, No Changes in Medication and No Patient answered all questions The History & Physical has been completed within 30 days and I have reviewed it.: Yes Section B Chief Complaint: AUB Allergies: Allergies Allergy/AdvReac Type Severity Reaction Status Date / Time No Known Allergies Allergy Verified 05/15/21 12:22 [No Known Allergies*] Plan Diagnosis/Plan: Unchanged I have reviewed the history and physical and performed a pertinent physical examination on my patient. No changes have occurred unless specified.
[2021-05-19] MEDS: Lactated Ringers 1,000 ML 100 ML IVCONT (08:46)
--- NOTE | 2021-05-19 09:38 | P.BOP_ITS ---
Brief Operative Note Date of Service: 05/19/21 Pre-op diagnosis: Abnormal uterine bleeding Procedure: Hysteroscopy D&C Surgeon: Johnny Encarnacion MD Anesthesia: MAC Was an [employer] Fitness Instructor used for this Procedure?: No Estimated blood loss (mL): 0 Pathology: other (Endometrial Scrapping) Condition: stable Disposition: PACU
--- NOTE | 2021-05-19 09:39 | P.OP_ITS ---
Operative Note Operative Note Date of Service: 05/19/21 Narrative: Preop Diagnosis: Abnormal uterine bleeding Operation: Diagnostic Hysteroscopy, Dilataion & Curettage Post Op Diagnosis: normal endometrial and endocervical cavity no evidence of pathology QBL: Minimal Anesthesia: MAC Surgeon: Johnny Encarnacion MD Geosciences Professor: None Complication: None Pathology: Endometrial Scrapings Procedure: The patient was put in the dorsal lithotomy position, scrubbed, and draped in the usual manner. A sterile speculum was inserted in the patient's vagina. The anterior lip of the cervix was grasped with a single tooth tenaculum. The cervix was dilated up t o 5 mm, then the scope was inserted in the patient's uterus. Inspection revealed normal endocervical & endometrial cavity with no evidence of pathology. The scope was taken out of the uterine cavity , then sharp curetting was carried on with no complications. At the end of the procedure, all instruments were taken out of the patient uterine and vaginal cavity. The single tooth tenaculum was removed and homeostasis was assured using pressure. The patient tolerated the procedure well and was transferred to the PACU in a stable condition.
== END 2021-05-19 10:50 | disposition home or self-care (01) ==
PROVIDERS: PCP Emergency Medicine; Visit Provider Obstetrics & Gynecology
PROC: 0UDB8ZZ Extraction of Endometrium, Via Natural or Artificial Opening Endoscopic (ICD-10-PCS; CPT 58558; principal; 2021-05-19 09:30)
DX: N93.9 Abnormal uterine and vaginal bleeding, unspecified (principal); K64.8 Other hemorrhoids; K59.00 Constipation, unspecified; Z98.51 Tubal ligation status; F17.210 Nicotine dependence, cigarettes, uncomplicated
CPT/HCPCS: 58558; 81025; 88305; J1100; J2250; J2405; J3010

== ENCOUNTER 2021-05-21 09:07 | Emergency (ER) | payer MEDICAID, SELFPAY ==
[2021-05-21 09:16] VITALS: BP 125/75; PULSE 84; RESP 18; TEMP 36.7; O2SAT 99; BMI 26.5
--- NOTE | 2021-05-21 09:38 | ED_ITS ---
HPI - General Adult General Chief complaint: General Medical Stated complaint: L SIDE NECK PAIN Time Seen by Provider: 05/21/21 09:38 Source: patient Mode of arrival: ambulatory Limitations: no limitations History of Present Illness HPI narrative: patient with left sided neck pain. Patient with recent uterine biopsy on . No fever. patient presents holding left neck Onset (ago): day(s) Radiation: neck Severity: moderate Quality: sharp Pain Consistency: constant Associated symptoms: denies other symptoms Treatments prior to arrival: none Related Data Previous Rx's Medication Instructions Recorded medroxyprogesterone 10 mg tablet 10 mg PO DAILY 30 Days #30 tab 05/15/21 (Provera) cyclobenzaprine 10 mg tablet 10 mg PO TID #10 tab 05/21/21 naproxen 500 mg tablet (Naprosyn) 500 mg PO BID #20 tab 05/21/21 ibuprofen 600 mg tablet 600 mg PO Q6H PRN #20 tab 05/22/21 tramadol 50 mg tablet 50 mg PO Q6H PRN #20 tab 05/22/21 Allergies Allergy/AdvReac Type Severity Reaction Status Date / Time No Known Allergies Allergy Verified 05/15/21 12:22 [No Known Allergies*] Review of Systems Constitutional: Constitutional: Reports no additional constitutional complaints Eyes: Eyes: Reports no additional eye complaints ENT: Denies dizziness Cardiovascular: Cardiovascular: Reports no additional cardiovascular complaints Respiratory: Respiratory: Reports as per HPI Gastrointestinal: Gastrointestinal: Reports no additional gastrointestinal complaints Genitourinary: Genitourinary: Reports no additional female genitourinary c omplaints Musculoskeletal: Musculoskeletal: Reports no additional musculoskeletal complaints Integumentary/Breasts: Skin/Breast: Denies rash Neurologic: Reports system reviewed and no additional complaints, except as documented, Denies dizziness and Denies Sensory deficit (Neuro) Psychiatric: Psychiatric: Denies anxiety PMFSH Past Medical History Medical History Bleeding hemorrhoids Constipation Hemorrhoid History of anxiety Surgical History H/O hand surgery History of tonsillectomy History of tubal ligation Family History Family History Father Hx of tongue cancer Mother Alive and well Social History Social History Are you a primary career and guidance counselor to a significant other at home: No Do you presently have visiting nurse or other home services: No Alcohol intake: never Patient Tobacco Use Status: Former Tobacco user Tobacco use type: Cigarette Cigarette Packs Per Day: 1 Cigarettes Per Day: 6 Years Smoked: 20+ Advance Directives: No Physical Exam Vital Signs: Vital Signs: Last Vital Signs Temp 98.0 F 05/21/21 09:16 Pulse 84 05/21/21 09:16 Resp 18 05/21/21 10:19 BP 125/75 05/21/21 09:16 Pulse Ox 99 05/21/21 09:16 Body Mass Index 26.5 Const: General: healthy appearing Nutritional Appearance: average body habitus Orientation/consciousness: oriented to person and patient oriented x3 Limitations: no limitations HENMT: Head: Yes normal to inspection Ears: external ears normal General nose exam: Normal external nose present Mouth: Normal oral and palatal mucosa present and oropharynx normal Throat: Yes posterior oropharynx normal Eyes: General: appearance normal, both eyes and all related structures Neck: Other: left sternocleidomastoid and left trapezius tenderness, Patient unable to move neck. No erythema, no swelling Neck: Yes normal visual inspection Chest: Chest palpation & inspection: normal inspection of the chest Resp: Auscultation: clear to auscultation bilaterally Cardio: Jugular venous distension: no JVD Rate: regular rate Rhythm: regular rhythm Heart sounds: S1 normal heart sound present and S2 normal heart sound present GI: Inspection: Yes normal to inspection Palpation (GI): Soft to palpation, nontender and No hepatosplenomegaly present Auscultation: normal bowel sounds : General: Yes no CVA tenderness Back/Spine/Pelvis: Back: no CVA tenderness Skin: General skin exam: no rashes or lesions noted Neuro: General: oriented to person and patient oriented x3 Cranial nerves: Yes CN's II-XII intact bilaterally Motor exam (neuro): 5/5 motor strength present throughout Sensory Exam: No Sensory deficit (Neuro) Extrem: General: Yes normal to inspection Psych: Appearance: grossly normal Course Reevaluation(s) Reevaluation #1: Will treat patient for torticollis with Toradol and flexeril and dc home Time: 09:45 Discharge Plan Discharge Clinical Impression: Acute torticollis Patient Disposition: Home, Self-Care Instructions: Neck Pain (ED) Prescriptions: New cyclobenzaprine 10 mg tablet 10 mg PO TID Qty: 10 RF: 0 naproxen [Naprosyn] 500 mg tablet 500 mg PO BID Qty: 20 RF: 0 No Action tramadol 50 mg tablet 50 mg PO Q6H PRN (Reason: pain) Qty: 20 RF: 0 ibuprofen 600 mg tablet 600 mg PO Q6H PRN (Reason: pain) Qty: 20 RF: 0 medroxyprogesterone [Provera] 10 mg tablet 10 mg PO DAILY 30 Days Qty: 30 RF: 0 Referrals: Dixon Alas FNP-C [Primary Care Provider] - 1 week Interventions: ED Discharge Assessment Last Done: 05/21/21 10:20 Discharge Date/Time: 05/21/21 10:20
[2021-05-21] MEDS: Cyclobenzaprine HCl 10 MG TABLET PO (09:56)
[2021-05-21] MEDS: Ketorolac Tromethamine 60 MG/2 ML VIAL IM (09:56)
[2021-05-21 10:19] VITALS: RESP 18
== END 2021-05-21 10:20 | disposition home or self-care (01) ==
PROVIDERS: Emergency Provider Emergency Medicine; PCP Emergency Medicine
DX: M43.6 Torticollis (principal); M54.2 Cervicalgia
CPT/HCPCS: 96372; 99283; 99284; J1885

== ENCOUNTER 2021-05-21 23:55 | Emergency (ER) | payer MEDICAID, SELFPAY ==
[2021-05-21 23:58] VITALS: BP 136/78; PULSE 94; O2SAT 98
[2021-05-22 00:09] VITALS: BP 129/79; PULSE 75; RESP 20; TEMP 36.6; O2SAT 99; BMI 26.5
--- NOTE | 2021-05-22 01:05 | ED_ITS ---
HPI - Neck Pain/Injury General Chief Complaint: Neck Pain/Injury Stated Complaint: neck pain Time Seen by Provider: 05/22/21 00:19 Source: patient Mode of arrival: ambulatory Limitations: no limitations History of Present Illness HPI Narrative: Patient complaining of pain in the occipital area for last 3 days was seen here yesterday morning was given nsaid comes back again for the same pain by ambulance Related Data Previous Rx's Medication Instructions Recorded medroxyprogesterone 10 mg tablet 10 mg PO DAILY 30 Days #30 tab 05/15/21 (Provera) cyclobenzaprine 10 mg tablet 10 mg PO TID #10 tab 05/21/21 naproxen 500 mg tablet (Naprosyn) 500 mg PO BID #20 tab 05/21/21 ibuprofen 600 mg tablet 600 mg PO Q6H PRN #20 tab 05/22/21 tramadol 50 mg tablet 50 mg PO Q6H PRN #20 tab 05/22/21 Allergies Allergy/AdvReac Type Severity Reaction Status Date / Time No Known Allergies Allergy Verified 05/15/21 12:22 [No Known Allergies*] Review of Systems Review of Systems: Yes all other systems are reviewed and are negative [facility] Past Medical History Medical History Bleeding hemorrhoids Constipation Hemorrhoid History of anxiety Surgical History H/O hand surgery History of tonsillectomy History of tubal ligation Family History Family History Father Hx of tongue cancer Mother Alive and well Social History Social History Are you a primary pharmacy customer care specialist to a significant other at home: No Do you presently have visiting nurse or other home services: No Alcohol intake: never Patient Tobacco Use Status: Former Tobacco user Tobacco use type: Cigarette Cigarette Packs Per Day: 1 Cigarettes Per Day: 6 Years Smoked: 20+ Advance Directives: No Physical Exam Vital Signs: Vital Signs: Last Vital Signs Temp 97.8 F 05/22/21 00:09 Pulse 75 05/22/21 00:09 Resp 20 05/22/21 00:09 BP 129/79 05/22/21 00:09 Pulse Ox 99 05/22/21 00:09 Body Mass Index 26.5 Const: General: no acute distress Orientation/consciousness: patient oriented x3 HENMT: Head: Yes normocephalic, Yes atraumatic and No Temporal artery tenderness present Head images: 1. Tenderness in the left greater occipital area Ears: TM's normal bilaterally Face and sinus: Yes normal facial exam Mouth: Normal oral and palatal mucosa present Teeth and gingiva: dentition normal Throat: Yes posterior oropharynx normal Neck: Neck: Yes full ROM and No tender Resp: Effort & Inspection: normal respiratory effort Auscultation: clear to auscultation bilaterally Cardio: Palpation: normal PMI Rate: regular rate Rhythm: regular rhythm Heart sounds: S1 normal heart sound present and S2 normal heart sound present Neuro: General: patient oriented x3 and no focal motor deficits MDM - Neck Pain/Injury MDM Narrative Medical decision making narrative: Patient with occipital neuralgia wanted to give lidocaine injection at greater occipital nerve but patient refused will discharge patient home on tramadol and ibuprofen Discharge Plan Discharge Clinical Impression: Occipital neuralgia of left side Patient Disposition: Home, Self-Care Instructions: General Headache (ED) Additional Instructions: Take pain medication as prescribed Follow with PCP Prescriptions: New tramadol 50 mg tablet 50 mg PO Q6H PRN (Reason: pain) Qty: 20 RF: 0 ibuprofen 600 mg tablet 600 mg PO Q6H PRN (Reason: pain) Qty: 20 RF: 0 No Action cyclobenzaprine 10 mg tablet 10 mg PO TID Qty: 10 RF: 0 naproxen [Naprosyn] 500 mg tablet 500 mg PO BID Qty: 20 RF: 0 medroxyprogesterone [Provera] 10 mg tablet 10 mg PO DAILY 30 Days Qty: 30 RF: 0
--- NOTE | 2021-05-22 01:08 | PC.NURSE ---
at bedside for primary eval.
[2021-05-22] MEDS: Ibuprofen 600 MG TABLET PO (01:22)
[2021-05-22 01:26] VITALS: RESP 20
--- NOTE | 2021-05-22 01:26 | PC.NURSE ---
Pt refusing Lidocaine injection for nerve pain. Pt yelling NO NO NO NO, NOT IN MY NECK!!! Pt medicated with Ibuprofen per MAR. Pt expressing frustration @ discharge plan. Pt refusing DC VS.
== END 2021-05-22 01:28 | disposition home or self-care (01) ==
PROVIDERS: Emergency Provider Internal Medicine
DX: M54.81 Occipital neuralgia (principal)
CPT/HCPCS: 99283; 99284

== ENCOUNTER → 2021-06-01 11:30 | Outpatient (BNVA) | payer MEDICAID, SELFPAY | PROVIDERS: PCP Emergency Medicine; Visit Provider Obstetrics & Gynecology ==

== ENCOUNTER 2021-06-26 14:12 | Outpatient (REF) | payer MEDICAID, SELFPAY | END 2021-06-26 14:13 | disposition home or self-care (01) | LOC: HO.LAB 14:12 | PROVIDERS: PCP Emergency Medicine; Visit Provider Obstetrics & Gynecology | DX: R87.615 Unsatisfactory cytologic smear of cervix (principal) | CPT/HCPCS: 81025; 88142; 99212 ==

== ENCOUNTER → 2021-09-04 12:47 | Outpatient (BNVA) | payer MEDICAID, SELFPAY | PROVIDERS: Visit Provider Obstetrics & Gynecology ==

== ENCOUNTER → 2021-12-04 11:49 | Outpatient (BNVA) | payer MEDICAID, SELFPAY | PROVIDERS: PCP Family Medicine; Visit Provider Obstetrics & Gynecology | DX: N93.9 Abnormal uterine and vaginal bleeding, unspecified (principal) | CPT/HCPCS: 99212 ==

== ENCOUNTER 2021-12-21 14:52 | Outpatient (REF) | payer MEDICAID, SELFPAY ==
--- NOTE | ~2021-12-21 | MM_ITS ---
EXAMINATION: MM SCREENING DIGITAL BREAST TOMOSYNTHESIS, BILATERAL CLINICAL INFORMATION: Screening. Asymptomatic. No prior breast imaging. Age 46. No known family history breast cancer. The lifetime risk of breast cancer based on the Tyrer-Cuzick Model is 7%. COMPARISON: None (current study represents initial baseline exam). TECHNIQUE: Digital breast tomosynthesis is performed in both the craniocaudal and mediolateral oblique views along with computer-aided detection (CAD). Synthesized 2D images are generated from the tomosynthesis. FINDINGS: There are scattered areas of fibroglandular density (ACR BI-RADS breast composition Category b). Right breast parenchymal pattern is unremarkable. There is no mass or architectural abnormality. Neither breast shows abnormal calcifications. The bilateral axilla and skin contours are normal. Left CC view has nodular parenchymal asymmetry central outer breast mid depth and central inner breast mid depth. As this represents initial baseline exam, patient will be recalled for additional imaging to further characterize. MM/MM tomosynthesis screening BI IMPRESSION: Left: -Nodular parenchymal asymmetry CC view mid outer quadrant and mid inner quadrant. Right: -No mammographic evidence of malignancy. ASSESSMENT: BI-RADS 0: Incomplete - Need Additional Imaging Evaluation RECOMMENDATION: 1. Additional views of the left breast (rolled CC x 2; ML). 2. Targeted ultrasound if warranted after review of the additional views. 3. Radiology department staff will contact the patient for additional imaging. This patient's information was entered into a reminder system with a target due date for their next mammogram.
== END 2021-12-21 14:53 | disposition home or self-care (01) ==
LOC: HO.MAMMO 14:52
PROVIDERS: Visit Provider Obstetrics & Gynecology
DX: Z12.31 Encounter for screening mammogram for malignant neoplasm of breast (principal)
CPT/HCPCS: 77063; 77067

== ENCOUNTER 2022-01-01 10:59 | Outpatient (REF) | payer MEDICAID, SELFPAY ==
--- NOTE | ~2022-01-01 | MM_ITS ---
EXAMINATION: MM DIAGNOSTIC DIGITAL BREAST TOMOSYNTHESIS, LEFT CLINICAL INFORMATION: Recall from baseline screening for nodular parenchymal asymmetry central outer and central inner left breast on CC view. TC 7%. COMPARISON: Mammography: 12/21/2021 (baseline, BI-RADS 0). TECHNIQUE: Digital breast tomosynthesis is performed. 2D images are generated from the tomosynthesis. The following views of the left breast are obtained: rolled CC x3, ML. FINDINGS: There are scattered areas of fibroglandular density (ACR BI-RADS breast composition Category b). Additional views show benign-appearing parenchymal asymmetry without underlying mass or architectural abnormality. Results are discussed with the patient at time of visit. MM/MM tomosynthesis added views L IMPRESSION: No mammographic evidence of malignancy. ASSESSMENT: BI-RADS 2: Benign RECOMMENDATION: Routine annual mammography screening. This patient's information was entered into a reminder system with a target due date for their next mammogram.
== END 2022-01-01 11:00 | disposition home or self-care (01) ==
LOC: HO.MAMMO 10:59
PROVIDERS: Visit Provider Obstetrics & Gynecology
DX: N64.89 Other specified disorders of breast (principal)
CPT/HCPCS: 77061; 77065

== ENCOUNTER → 2022-04-06 14:16 | Outpatient (BNV) | payer MEDICAID, SELFPAY | PROVIDERS: PCP Family Medicine; Visit Provider Internal Medicine | DX: D75.839 Thrombocytosis, unspecified (principal) | CPT/HCPCS: 99204; 99213; 99214 ==

== ENCOUNTER 2022-07-30 13:28 | Outpatient (REF) | payer MEDICAID, SELFPAY ==
[2022-07-30 18:55] LABS: CT PCR NOT DETECTED (Not Detect.); NG PCR NOT DETECTED (Not Detect.)
[2022-07-31 10:41] LABS: BV Int Neg Control Negative (Negative); BV Int Pos Control Positive (Positive)
[2022-08-01 16:57] LABS: HPV mRNA E6/E7 rflx Not Detected (Not Detected)
== END 2022-07-30 13:29 | disposition home or self-care (01) ==
LOC: HO.LNP 13:28
PROVIDERS: PCP Family Medicine; Visit Provider Advanced Practice Midwife
DX: Z01.411 Encounter for gynecological examination (general) (routine) with abnormal findings (principal); Z11.51 Encounter for screening for human papillomavirus (HPV); N93.9 Abnormal uterine and vaginal bleeding, unspecified
CPT/HCPCS: 0353U; 87480; 87510; 87624; 87660; 88142

== ENCOUNTER 2023-05-24 14:20 | Outpatient (REF) | payer MEDICAID, SELFPAY | END 2023-05-24 14:21 | disposition home or self-care (01) | LOC: HO.MAMMO 14:20 | PROVIDERS: PCP Family Medicine; Visit Provider Family Medicine | DX: Z12.31 Encounter for screening mammogram for malignant neoplasm of breast (principal) | CPT/HCPCS: 77063; 77067 ==

== ENCOUNTER → 2023-05-24 15:30 | Outpatient (BNV) | payer MEDICAID, SELFPAY | PROVIDERS: PCP Family Medicine; Visit Provider Radiology Diagnostic Radiology | DX: Z12.31 Encounter for screening mammogram for malignant neoplasm of breast (principal) | CPT/HCPCS: 77063; 77067 ==

== ENCOUNTER 2023-09-05 11:39 | Outpatient (REF) | payer MEDICAID, SELFPAY ==
--- NOTE | ~2023-09-05 | XR_ITS ---
EXAMINATION: XR KNEE, RIGHT CLINICAL INFORMATION: Pain. COMPARISON: None available. TECHNIQUE: AP, lateral, tunnel, and sunrise views of the right knee. FINDINGS: No fracture or joint effusion. Alignment is anatomic. Joint spaces are maintained. No abnormal soft tissue calcification. XR/XR knee LT 4V IMPRESSION: Normal right knee. EXAMINATION: XR KNEE, LEFT CLINICAL INFORMATION: Pain. COMPARISON: None available. TECHNIQUE: AP, lateral, tunnel, and sunrise views of the left knee. FINDINGS: No fracture or joint effusion. Alignment is anatomic. Joint spaces are maintained. No abnormal soft tissue calcification. IMPRESSION: Normal left knee.
--- NOTE | ~2023-09-05 | XR_ITS ---
EXAMINATION: XR ELBOW, RIGHT CLINICAL INFORMATION: Medial epicondyle pain COMPARISON: 07/27/2019 TECHNIQUE: AP, lateral, and oblique views of the right elbow. FINDINGS: The bones and soft tissues are normal. No fracture or joint effusion. Alignment is anatomic. Joint spaces are maintained. XR/XR elbow RT min 3V IMPRESSION: Normal right elbow.
--- NOTE | ~2023-09-05 | XR_ITS ---
EXAMINATION: XR KNEE, RIGHT CLINICAL INFORMATION: Pain. COMPARISON: None available. TECHNIQUE: AP, lateral, tunnel, and sunrise views of the right knee. FINDINGS: No fracture or joint effusion. Alignment is anatomic. Joint spaces are maintained. No abnormal soft tissue calcification. XR/XR knee RT 4V IMPRESSION: Normal right knee. EXAMINATION: XR KNEE, LEFT CLINICAL INFORMATION: Pain. COMPARISON: None available. TECHNIQUE: AP, lateral, tunnel, and sunrise views of the left knee. FINDINGS: No fracture or joint effusion. Alignment is anatomic. Joint spaces are maintained. No abnormal soft tissue calcification. IMPRESSION: Normal left knee.
--- NOTE | ~2023-09-05 | XR_ITS ---
EXAMINATION: XR LUMBOSACRAL SPINE CLINICAL INFORMATION: Paraspinal muscle spasm. COMPARISON: None available. TECHNIQUE: AP and lateral views of the lumbar spine and Shah and lateral views of the lumbosacral junction. FINDINGS: The vertebral bodies and posterior elements are normal. The disc spaces are preserved and the vertebral alignment is normal. The paraspinal soft tissues are normal. There are aortoiliac atherosclerotic calcifications. Pelvic phleboliths are noted. XR/XR lumbar spine 2-3V IMPRESSION: Unremarkable examination.
== END 2023-09-05 11:40 | disposition home or self-care (01) ==
LOC: HO.XRAY 11:39
PROVIDERS: Visit Provider Family Medicine
DX: M25.561 Pain in right knee (principal); M25.562 Pain in left knee; G89.29 Other chronic pain; M62.830 Muscle spasm of back; M77.01 Medial epicondylitis, right elbow
CPT/HCPCS: 72100; 73080; 73564

== ENCOUNTER 2023-09-09 09:02 | Outpatient (REF) | payer MEDICAID, SELFPAY ==
[2023-09-09 09:10] LABS: MANUAL DIFF FLAG NO
[2023-09-09 09:25] LABS: Basophils Absolute Auto 0.1 X10*3/uL (0.0-0.2); Basophils Percent Auto 0.7 % (0-2); Eosinophils Absolute Auto 0.3 X10*3/uL (0.0-0.4); Eosinophils Percent Auto 3.1 % (0-4); Hematocrit 41.6 % (37.0-47.0); Hemoglobin 13.8 g/dl (12.0-16.0); Imm Gran Abs Auto 0.04 X10*3/uL (0.00-0.03); Imm Gran Pct Auto 0.4 % (0.0-0.4); Lymphocytes Absolute Auto 3.3 X10*3/uL (1.2-4.9); Lymphocytes Percent Auto 34.6 % (20-40); Mean Corpuscular HGB Conc 33.2 g/dl (31.0-35.0); Mean Corpuscular Hemoglobin 30.1 pg (27.0-33.0); Mean Corpuscular Volume 90.8 fL (80.0-98.0); Mean Platelet Volume 8.4 fL (9.4-12.3); Monocytes Absolute Auto 0.9 X10*3/uL (0.1-1.2); Neutrophils Absolute Auto 4.9 x10*3/uL (2.0-8.3); Neutrophils Percent Auto 52.2 % (45-73); Platelet Count 439 X10*3/uL (160-400); Red Blood Count 4.58 X10*6/uL (4.20-5.50); Red Cell Distribution Width 13.7 % (11.0-16.0); White Blood Count 9.5 X10*3/uL (4.8-10.8)
[2023-09-09 10:03] LABS: Alanine Aminotransferase 30 U/L (0-31); Albumin Level 4.3 g/dL (3.5-5.0); Alkaline Phosphatase 105 U/L (39-117); Anion Gap 13 (12-20); Aspartate Amino Transferase 33 U/L (5-31); Bilirubin Total 0.2 mg/dL (0.0-1.0); Blood Urea Nitrogen 14 mg/dL (9-16); Calcium 9.5 mg/dL (8.4-10.2); Carbon Dioxide 24 mmol/L (22-29); Chloride 105 mmol/L (96-108); Cholesterol 242 mg/dL (<200); Estimated Glomerular Filt Rate > 60; Glucose Random 109 mg/dL (60-115); HDL Cholesterol 38 mg/dL (>40); LDL Cholesterol Calculated 168 mg/dL (<100); Potassium 4.2 mmol/L (3.3-5.1); Sodium 138 mmol/L (135-145); Total Protein 7.5 g/dL (6.5-8.0); Triglycerides 182 mg/dL (<150)
[2023-09-09 10:19] LABS: TSH reflex Free T4 1.95 uIU/mL (0.32-4.0)
== END 2023-09-09 09:03 | disposition home or self-care (01) ==
LOC: HO.LAB 09:02
PROVIDERS: Visit Provider Family Medicine
DX: I10 Essential (primary) hypertension (principal)
CPT/HCPCS: 36415; 80053; 80061; 84443; 85025

== ENCOUNTER 2023-09-19 08:59 | Outpatient (AMB) | payer MEDICAID, SELFPAY ==
--- NOTE | 2023-09-19 09:10 | MHC.OFFVIS ---
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 Required: No Information Interpreted: clinical only Chip Frier: Chip Frier Present Allergies No Known Allergies [No Known Allergies*] Allergy (Verified 09/19/23 09:12) Medication List - Last Reconciled 09/19/23 by Shital Hummel CNM amlodipine 1 tab PO DAILY blood pressure test kit-large As directed bupropion HCl 1 tab PO DAILY njljmdjcks-elyjsmrlgg-ymy-cod [id number] mg 1 cap PO Q8H PRN ferrous sulfate 325 mg PO BID metronidazole 500 mg PO BID 7 days rosuvastatin 10 mg PO DAILY Is last menstrual period known: No (unsure date) HPI 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 She can not remember when her last period was but it might of been a couple of months ago she has not sure she does not keep track and she does not write it down she had a problem with her. Years ago and had biopsy done surgically with Dr. Encarnacion and thereafter he placed her on monthly Provera and she has not been on that for a while and she says the prescription ran out but after a while she was reporting normal periods. She has not been feeling good she has a cold that started last week of some sort but she said she is COVID negative and does not believe she is contagious. She has had all sorts of aches and pains in her all of her joints and her back and she has had x-rays done and her doctor did lot of tests and she has a follow-up visit with her doctor at the [facility] next week and is going to be talking to her about everything including lab tests that said all of her cholesterol levels and liver studies were high and that she has muscle spasms and she is going to talk about that with her Additionally she has talked to her doctor about not emptying her bladder fully and she said she is going to be talking more with her doctor about that as well. She reports not feeling good and is down she does have a therapist to calls her every week and she feels better after she talks to her. She has not sexually active with anyone right now but she really misses having babies she had her baby's 2 years apart from each other and she has 3 living children 1 she lost at 5 months and she thinks about having another baby every now and then she did have her tubes tied but she said that the doctor told her to be careful that sometimes they can grow back after awhile. She denies having any hot flashes. When she missed her. She was worried that she is going through menopause and she is feels like she has not ready for that yet. [facility] Medical History (Updated 09/19/23 @ 10:00 by Shital Hummel CNM) History of anxiety Bleeding hemorrhoids Constipation Hemorrhoid Surgical History (Updated 09/19/23 @ 09:56 by Shital Hummel CNM) H/O hand surgery History of tubal ligation History of tonsillectomy Family History Father Hx of tongue cancer Mother Alive and well Social History Household Members: Family Housing: Apartment Are you a primary transition of care specialist to a significant other at home: No Do you presently have visiting nurse or other home services: No Alcohol intake: never Patient Tobacco Use Status: Current everyday Tobacco user Tobacco use type: Cigarette Cigarette Packs Per Day: 4 Years Smoked: 20+ service: No Current occupational status: disabled Female Reproductive History Menstrual Age of Menarche: 14 Duration of menses: 3-5 days control method: permanent sterilization Total pregnancies: 4 Full term: 3 Date of last pap smear: 07/30/22 (negative,previous pap 2020,neg.) History of abnormal pap smear: No Date of Mammogram: 05/24/23 (negative) History of abnormal mammogram: No Physical Exam Vital Signs: Last Vital Signs BP 138/70 09/19/23 09:11 BMI result Body Mass Index 29.4 Const General: healthy appearing, comfortable, no acute distress, well developed and alert Nutritional Appearance: average body habitus Orientation/consciousness: patient oriented x3 Limitations: no limitations HEENT Head: Yes normocephalic Neck Neck: Yes normal visual inspection Chest Chest palpation & inspection: normal inspection of the chest Breast/axilla inspection: normal inspection of the breasts and normal inspection of the axillae Breast/axilla palpation: normal palpation of the breasts and normal palpation of the axillae Resp Effort & Inspection: normal respiratory effort GI Inspection: Yes normal to inspection, No Abdominal wall edema and No distended Palpation (GI): Soft to palpation and nontender Other: No Pap or cultures indicated this year. Speculum exam within normal limits vagina pink and moist cervix difficult to see secondary to redundant vaginal tissue but smooth pink mobile nontender uterus nontender midposition bladder not full but may have some residual by palpation. Patient has good tone with Kegel see discussion on trying to empty bladder fully. General: Yes bladder normal to palpation External Female Exam: normal external appearance and normal appearance of the urethra Speculum Exam - Vagina: normal appearance of the vagina, normal palpation and normal vaginal discharge Speculum Exam - Cervix: normal appearance of the cervix, normal palpation and nontender Bimanual exam- vagina & uterus: normal bimanual exam, normal palpation, uterine size normal, bladder normal to palpation, consistency normal, normal palpation, uterine mobility normal, uterine shape normal, No Cervical tenderness present, non-tender and no cervical motion tenderness Bimanual Exam- Adnexa, other: normal adnexae, no masses, normal and No adnexal tenderness Neuro General: patient oriented x3 Assessment & Plan Assessment & Plan (1) Cervical cancer screening: Comment: 07/30/2022 Pap is negative with negative HPV. Code(s): Z12.4 - Encounter for screening for malignant neoplasm of cervix (2) Screen for sexually transmitted diseases: Code(s): Z11.3 - Encounter for screening for infections with a predominantly sexual mode of transmission (3) Women's annual routine gynecological examination: Code(s): Z01.419 - Encounter for gynecological examination (general) (routine) without abnormal findings (4) Abnormal uterine bleeding (AUB): Comment: Resolved on cyclic Provera; no longer on that missed last period. 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 She can not remember when her last period was but it might of been a couple of months ago she has not sure she does not keep track and she does not write it down she had a problem with her. Years ago and had biopsy done surgically with Dr. Encarnacion and thereafter he placed her on monthly Provera and she has not been on that for a while and she says the prescription ran out but after a while she was reporting normal periods. She has not been feeling good she has a cold that started last week of some sort but she said she is COVID negative and does not believe she is contagious. She has had all sorts of aches and pains in her all of her joints and her back and she has had x-rays done and her doctor did lot of tests and she has a follow-up visit with her doctor at the [facility] next week and is going to be talking to her about everything including lab tests that said all of her cholesterol levels and liver studies were high and that she has muscle spasms and she is going to talk about that with her Additionally she has talked to her doctor about not emptying her bladder fully and she said she is going to be talking more with her doctor about that as well. She reports not feeling good and is down she does have a therapist to calls her every week and she feels better after she talks to her. She has not sexually active with anyone right now but she really misses having babies she had her baby's 2 years apart from each other and she has 3 living children 1 she lost at 5 months and she thinks about having another baby every now and then she did have her tubes tied but she said that the doctor told her to be careful that sometimes they can grow back after awhile. She denies having any hot flashes. When she missed her. She was worried that she is going through menopause and she is feels like she has not ready for that yet. She said she has been getting mammograms through her primary care provider so she is not in need of an order for that. She has her appointment with her primary care provider on the 25 of September next week. She will be following up on all of the above. Her last Pap smear was negative in 2022 and her previous Pap smear was negative in 2020 she does not remember any history of abnormals. I discussed ways of trying to feel better and to move to help with muscle spasms and consider making a heating pad with a damp towel in the microwave but be very careful not to either said the house on fire or burn herself and heated up in 32nd in increments. She has a 7-year-old granddaughter who comes to her house every day who she loves and she takes care of. Discussed maybe turning on so music and dancing with her granddaughter to get moving. Also now that spring is coming to consider going for walk outside and move more could that makes everyone feel better. Also discussed completely emptying her bladder and described descriptively what can happen when the bladder does not fully empty and some strategies to try and ensure she empties and discuss this with her primary as well. Discussed that her next Pap smear would be in 2027. I did urge her to keep track of her periods and if she ever has 3 months when she misses a. Then she might need to be seen again and she might need to talk with Dr. Encarnacion about going back on the cyclic Provera. Also discussed her feelings about some day wanting to have another baby that she misses those days and to certain extent this is a very common thing but discussed things in perspective of her age and health and history of tubal ligation and the challenges that would be involved as well as consideration to enjoying her grandchild and maybe discussing this with her therapist too. Coding Level of Care Code Est Pt Prev Care 40-64y(70632) Diagnoses Cervical cancer screening Z12.4 Screen for sexually transmitted diseases Z11.3 Women's annual routine gynecological examination Z01.419 Abnormal uterine bleeding (AUB) N93.9 Urinary retention with incomplete bladder emptying R33.9 Perimenopause N95.1
[2023-09-19 09:11] VITALS: BP 138/70; BMI 29.4
== END 2023-09-19 10:24 | disposition home or self-care (01) ==
LOC: HO.HWSM 09:00
PROVIDERS: PCP Family Medicine; Visit Provider Advanced Practice Midwife
DX: Z01.419 Encounter for gynecological examination (general) (routine) without abnormal findings (principal); N93.9 Abnormal uterine and vaginal bleeding, unspecified; R33.9 Retention of urine, unspecified; N95.1 Menopausal and female climacteric states
CPT/HCPCS: 99396

== ENCOUNTER → 2023-09-19 08:59 | Outpatient (BNVA) | payer MEDICAID, SELFPAY | PROVIDERS: PCP Family Medicine; Visit Provider Advanced Practice Midwife | DX: Z01.419 Encounter for gynecological examination (general) (routine) without abnormal findings (principal); Z12.4 Encounter for screening for malignant neoplasm of cervix; Z11.3 Encounter for screening for infections with a predominantly sexual mode of transmission; N93.9 Abnormal uterine and vaginal bleeding, unspecified; N95.1 Menopausal and female climacteric states; R33.9 Retention of urine, unspecified | CPT/HCPCS: 99396 ==

== ENCOUNTER 2023-10-03 13:35 | Outpatient (REF) | payer MEDICAID, SELFPAY ==
--- NOTE | ~2023-10-03 | US_ITS ---
EXAMINATION: US PELVIS CLINICAL INFORMATION: Pelvic pain, vaginal bleeding, last menstrual period past 2. COMPARISON: 05/07/2021, 02/08/2020 Pelvic ultrasound. TECHNIQUE: Ultrasound of the pelvis is performed using both transabdominal and transvaginal transducers along with Doppler. Transvaginal imaging is performed due to inadequate visualization transabdominally. FINDINGS: The uterus is heterogeneous and measures 8.9 x 4.4 x 6.9 cm. A 1.0 x 1.0 x 0.7 cm right fibroid. Ultrasound of 02/18/2020 demonstrated a 1.2 x 1.2 x 1.1 cm left body fibroid. Heterogeneous myometrium with multiple small cystic spaces. Endometrium is abnormal in appearance with multiple small cystic spaces, complex, heterogeneous and echogenic with thickness of 16 mm. Nabothian cysts present. Left ovary measures 1.1 x 2.1 x 1.7 cm, volume 2.1 mL and is unremarkable. Right ovary measures 3.3 x 2.7 x 2.2 cm, volume 10.3 mL. A 2.5 x 1.8 x 2.3 cm right ovarian cyst is mildly complex with moderate nodularity of the cyst raphael and possible thin septations. Recommend follow-up ultrasound in 6-12 weeks. US/US pelvic and transvaginal IMPRESSION: 1. Abnormal appearance of the endometrium with multiple small cystic spaces, complex, heterogeneous and echogenic with thickness of 16 mm. Gynecologic consultation and possible biopsy recommended. 2. Heterogeneous myometrium with multiple small cystic spaces. 3. A 2.5 cm right ovarian cyst is mildly complex with moderate nodularity of the cyst raphael and possible thin septations. Recommend follow-up ultrasound in 6-12 weeks. This study was presented today October 07, 2023 for interpretation. PSA staff will provide results to referring provider at this time.
== END 2023-10-03 13:36 | disposition home or self-care (01) ==
LOC: HO.US 13:35
PROVIDERS: PCP Family Medicine; Visit Provider Family Medicine
DX: R10.2 Pelvic and perineal pain (principal)
CPT/HCPCS: 76830; 76856

== ENCOUNTER 2023-10-23 13:37 | Outpatient (REF) | payer MEDICAID, SELFPAY ==
--- NOTE | ~2023-10-23 | US_ITS ---
EXAMINATION: US SOFT TISSUE NECK CLINICAL INFORMATION: Right-sided neck pain, throat pain, no mass on exam, pain with swallowing. COMPARISON: None available. TECHNIQUE: Ultrasound of the neck soft tissues is performed with high- frequency bundy-scale imaging and color Doppler. FINDINGS: Multiple borderline atypical right cervical lymph nodes, largest as follows in the mid neck measure 0.8 x 0.5 x 0.8 cm, 1.0 x 0.4 x 0.8 cm and 1.9 x 0.5 x 0.8 cm. US/US soft tiss head and/or neck IMPRESSION: Multiple borderline atypical nodes as detailed above in the right cervical region. Correlation with clinical exam recommended to determine further management. Recommend followup ultrasound in 3 months. This study was presented today October 30, 2023 for interpretation. Prompt priority results supplied at this time to the referring provider as requested by the provider.
== END 2023-10-23 13:38 | disposition home or self-care (01) ==
LOC: HO.US 13:37
PROVIDERS: PCP Family Medicine; Visit Provider Family Medicine
DX: R07.0 Pain in throat (principal)
CPT/HCPCS: 76536

== ENCOUNTER 2023-10-29 09:33 | Outpatient (REF) | payer MEDICAID, SELFPAY | END 2023-10-29 09:34 | disposition home or self-care (01) | LOC: HO.LNP 09:33 | PROVIDERS: PCP Family Medicine; Visit Provider Obstetrics & Gynecology | DX: N93.9 Abnormal uterine and vaginal bleeding, unspecified (principal); N83.299 Other ovarian cyst, unspecified side | CPT/HCPCS: 81025; 99212 ==

== ENCOUNTER 2023-10-29 09:33 | Outpatient (AMB) | payer MEDICAID, SELFPAY ==
--- NOTE | 2023-10-29 09:35 | A.OFFVIS_ITS ---
Intake Vital Signs 10/29/23 09:37 Height 5 ft 3 in Weight 166 lb BMI 29.4 BP 114/70 Intake Visit Reasons: vaginal bleeding Intake Note: Bleeding since 09/20/23 Electric Range Servicer Required: Yes Electric Range Servicer Language: Reliability Technologist Name: micheline [id number] Information Interpreted: non-clinical & clinical Mid Level Game Designer: Mid Level Game Designer Present (Melida) Allergies No Known Allergies [No Known Allergies*] Allergy (Verified 10/29/23 09:37) HPI HPI Comments History of Present Illness Details Presenting referred from PCP regarding heavy menstrual cycles over the last few months. On 09/09/2023 H&H was 13.8/41.6, TSH within normal Last co testing was in 08/13 was negative Last mammogram was in 06/13 BI-RADS 1 Pelvic ultrasound done read in 10/04/23 showed the following: The uterus is heterogeneous and measures 8.9 x 4.4 x 6.9 cm. A 1.0 x 1.0 x 0.7 cm right fibroid. Ultrasound o f 02/18/2020 demonstrated a 1.2 x 1.2 x 1.1 cm left body fibroid. Heterogeneous myometrium with multiple small cystic spaces. Endometrium is abnormal in appearance with multiple small cystic spaces, complex, heterogeneous and echogenic with thickness of 16 mm. Nabothian cysts present. Left ovary measures 1.1 x 2.1 x 1.7 cm, volume 2.1 mL and is unremarkable. Right ovary measures 3.3 x 2.7 x 2.2 cm, volume 10.3 mL. A 2.5 x 1.8 x 2.3 cm right ovarian cyst is mildly comp gato with moderate nodularity of the cyst raphael and possible thin septations. Recommend follow-up ultrasound in 6-12 weeks. [facility] Medical History History of anxiety Bleeding hemorrhoids Constipation Hemorrhoid Surgical History H/O hand surgery History of tubal ligation History of tonsillectomy Family History Father Hx of tongue cancer Mother Alive and well Social History Household Members: Family Housing: Apartment Are you a primary ocular care technician to a significant other at home: No Do you presently have visiting nurse or other home services: No Alcohol intake: never Patient Tobacco Use Status: Current everyday Tobacco user Tobacco use type: Cigarette Cigarette Packs Per Day: 4 Years Smoked: 20+ service: No Current occupational status: disabled Female Reproductive History Menstrual Age of Menarche: 14 Review of Systems Const All systems reviewed & are unremarkable except as noted in HPI and below Card Reports as per HPI Resp Reports as per HPI GI Reports as per HPI and Reports no additional complaints Reports as per HPI Physical Exam Vital Signs: Last Vital Signs BP 114/70 10/29/23 09:37 BMI result Body Mass Index 29.4 Const General: cooperative, healthy appearing and comfortable Chest Chest palpation & inspection: normal inspection of the chest and normal palpation of entire chest wall Breast/axilla inspection: normal inspection of the breasts and normal inspection of the axillae Breast/axilla palpation: normal palpation of the breasts, normal palpation of the axillae and no axillary lymphadenopathy Resp Effort & Inspection: normal respiratory effort Auscultation: clear to auscultation bilaterally Percussion: percussion normal Cardio Palpation: normal PMI Rate: regular rate Rhythm: regular rhythm Heart sounds: no murmurs and no rubs Peripheral pulses: Peripheral pulses 2+ throughout GI Inspection: Yes normal to inspection Palpation (GI): Soft to palpation, nontender, no guarding, not rigid and No hepatosplenomegaly present Percussion: Yes normal to percussion Auscultation: normal bowel sounds Rectal Exam - Female: deferred General: Yes bladder normal to palpation External Female Exam: No lesion Speculum Exam - Vagina: normal appearance of the vagina, normal palpation, normal vaginal discharge and not erythematous Speculum Exam - Cervix: normal appearance of the cervix and normal palpation Bimanual exam- vagina & uterus: normal bimanual exam, normal palpation, uterine size normal, bladder normal to palpation, consistency normal and normal palpation Bimanual Exam- Adnexa, other: normal adnexae, no masses and no tenderness Results AMB Test Urine AMB Test Urine Negative Last Edit by DAVID Martino on 10/29/23 09:50 Results Reviewed Results Reviewed: Laboratory Last Values Tst Clinic Negative 10/29/23 09:49 Assessment & Plan Assessment & Plan (1) Abnormal uterine bleeding (AUB): Code(s): N93.9 - Abnormal uterine and vaginal bleeding, unspecified Plan: GC and chlamydia taken CBC, TSH, prolactin, HCG, FSH/LH and repeat pelvic ultrasound ordered. Discussed with the patient the different causes of abnormal bleeding including thyroid disorders, uterine and ovarian pathology, endometrial hyperplasia, carcinoma and other potential causes. Discussed with the patient the work up including CBC (to r/o anemia), TSH, FSH/LH, prolactin pelvic Ultrasound, endometrial biopsy to r/o endometrial pathology. All questions answered and the patient verbalized understanding. Instructed the patient to schedule an appointment for an endometrial biopsy in 2 weeks. (2) Complex ovarian cyst: Code(s): N83.299 - Other ovarian cyst, unspecified side Plan: Discussed with the patient the complex ovarian cyst by ultrasound. Discussed with the patient the Ultrasound findings, the main limitation of transvaginal ultrasonography alone as a diagnostic tool to distinguish benign from malignant masses relates to its lack of specificity and low positive predictive value for cancer. The differential diagnosis discussed with the patient includes the following but not limited to: benign and malignant gynecological and non-gynecological causes. Laboratory evaluation include UPT and GC/CT , serum tumor marker CA 125 . Discussed with the patient that CA 125 is a protein associated with epithelial ovarian malignancies, but also frequently expressed at lower levels by nonmalignant tissue. Elevation of CA 125 levels may occur in nonmalignant gynecologic conditions, and in non-gynecologic cancers, It is most useful in postmenopausal women and in identifying non mucinous epithelial cancer. The CA 125 level is elevated in 80% of patients with epithelial ovarian cancer but in only 50% of patients with stage I disease. The overall sensitivity of CA 125 testing in distinguishing benign from malignant adnexal masses reportedly ranges from 61% to 90%; discussed with the patient the specificity, positive predictive value and negative predictive value. Discussed with the patient options of treatment , in case CA 125 is not elevated, including laparoscopy ovarian cystectomy/oophorectomy vs. expectant management with repeat US in repeating pelvic US in 6 weeks from previous US. If the ovarian complex cyst is persistent larger and / or more complex looking, or higher CA 125 will refer to gynecologic Oncology. All pros, cons, risks and benefits of each approach were discussed with the patient including but not limited to a delay in the diagnosis and treatment of ovarian cancer affecting the prognosis; The patient decided to go ahead with expectant management. Instructions given the patient to schedule a 3 months follow-up ultrasound appointment. All questions were answered & the patient verbalized understanding and agreed with the plan. Orders: Orders CT NG by PCR Today N93.9 - Abnormal uterine and vaginal bleeding, unspecified TSH reflex Free T4 Today N93.9 - Abnormal uterine and vaginal bleeding, unspecified HCG Quantitative Today N93.9 - Abnormal uterine and vaginal bleeding, unspecified Follicle Stimulating Hormone Today N93.9 - Abnormal uterine and vaginal bleeding, unspecified US pelvic and transvaginal 11/18/23 N83.299 - Other ovarian cyst, unspecified side AMB HCG Urine Test Today N93.9 - Abnormal uterine and vaginal bleeding, unspecified Complete Blood Count no Diff Today N93.9 - Abnormal uterine and vaginal bleeding, unspecified Prolactin Today N93.9 - Abnormal uterine and vaginal bleeding, unspecified Lutenizing Hormone Today N93.9 - Abnormal uterine and vaginal bleeding, unspecified Coding Level of Care Code Est Pt Level 3 (65110) Diagnoses Abnormal uterine bleeding (AUB) N93.9 Complex ovarian cyst N83.299
[2023-10-29 09:37] VITALS: BP 114/70; BMI 29.4
== END 2023-10-29 10:30 | disposition home or self-care (01) ==
LOC: HO.HWS 09:33
PROVIDERS: PCP Family Medicine; Visit Provider Obstetrics & Gynecology
DX: N93.9 Abnormal uterine and vaginal bleeding, unspecified (principal); N83.299 Other ovarian cyst, unspecified side
CPT/HCPCS: 99213

== ENCOUNTER 2023-10-29 10:36 | Outpatient (REF) | payer MEDICAID, SELFPAY ==
[2023-10-29 11:49] LABS: Hematocrit 34.9 % (37.0-47.0); Hemoglobin 11.5 g/dl (12.0-16.0); Mean Corpuscular Hemoglobin 29.6 pg (27.0-33.0); Mean Corpuscular Volume 89.9 fL (80.0-98.0); Mean Platelet Volume 8.7 fL (9.4-12.3); Platelet Count 490 X10*3/uL (160-400); Red Blood Count 3.88 X10*6/uL (4.20-5.50); Red Cell Distribution Width 12.8 % (11.0-16.0); White Blood Count 10.3 X10*3/uL (4.8-10.8)
[2023-10-29 12:50] LABS: HCG Quantitative < 2 mIU/mL; TSH reflex Free T4 2.24 uIU/mL (0.32-4.0)
[2023-10-29 18:06] LABS: CT PCR NOT DETECTED (Not Detect.); NG PCR NOT DETECTED (Not Detect.)
[2023-10-30 07:18] LABS: Follicle Stimulating Hormone 65.1 mIU/mL; Lutenizing Hormone 19.2 mIU/mL; Prolactin 6.5 ng/mL
== END 2023-10-29 10:37 | disposition home or self-care (01) ==
LOC: HO.LAB 10:36
PROVIDERS: PCP Family Medicine; Visit Provider Obstetrics & Gynecology
DX: N93.9 Abnormal uterine and vaginal bleeding, unspecified (principal)
CPT/HCPCS: 0353U; 81025; 83001; 83002; 84146; 84443; 84702; 85027; 99212

== ENCOUNTER 2023-10-30 11:59 | Outpatient (AMB) | payer MEDICAID, SELFPAY ==
--- NOTE | 2023-10-30 12:29 | A.OFFVIS_ITS ---
Intake Vital Signs 10/30/23 12:35 Height 5 ft 3 in Weight 166 lb BMI 29.4 BP 124/74 Intake Visit Reasons: EMB Disability Representative Required: Yes Disability Representative Language: Kinyarwanda Information Interpreted: non-clinical & clinical Thermodynamic Physicist: Thermodynamic Physicist Present (Aidyn) Allergies No Known Allergies [No Known Allergies*] Allergy (Verified 10/30/23 12:40) Is last menstrual period known: Yes Last menstrual period: 10/29/23 Post menopausal: No Patient : No HPI HPI Comments History of Present Illness Details Presenting for EMB PFSH Medical History History of anxiety Bleeding hemorrhoids Constipation Hemorrhoid Surgical History H/O hand surgery History of tubal ligation History of tonsillectomy Family History Father Hx of tongue cancer Mother Alive and well Social History Household Members: Family Housing: Apartment Are you a primary pediatric acute care unit nurse to a significant other at home: No Do you presently have visiting nurse or other home services: No Alcohol intake: never Patient Tobacco Use Status: Current everyday Tobacco user Tobacco use type: Cigarette Cigarette Packs Per Day: 4 Years Smoked: 20+ Patient : No service: No Current occupational status: disabled Female Reproductive History Menstrual Age of Menarche: 14 Date of last menstrual period: 10/29/23 control method: permanent sterilization Physical Exam Vital Signs: Last Vital Signs BP 124/74 10/30/23 12:35 BMI result Body Mass Index 29.4 Office Procedures Endometrial Biopsy Details: The patient was counseled regarding the indication and benefits of endometrial sampling to rule out endometrial pathology including not limited to endometrial hyperplasia or endometrial cancer and others; The alternatives (Either do nothing vs. hysteroscopy D&C) & the risks were discussed with the patient including but not limited: pain, uterine perforation, bleeding, infection, possible injury to bladder, bowel, ureter, possible need for blood transfusion with all its possible risks. The patient verbalized understanding all questions answered and signed consent. UPT done in the office was negative The patient was placed into the dorsal lithotomy position; a speculum was inserted in the vagina. Using aseptic technique for the procedure, the cervix was cleansed with Betadine. The anterior lip of the cervix was grasped with a single tooth tenaculum. The uterus was sounded to 7 cm with a 4 mm Pipelle was used. Tissues samples were obtained and placed in formalin, in a patient labeled container and sent to the pathology department. At the end of the procedure, there was minimal bleeding noted The patient tolerated the procedure well and was discharged in good condition with the following instructions: Nothing in the vagina until the bleeding stops. No sex until the bleeding stops, to call if any of the following occurs: fever (>100.4), flu-like symptoms, abdominal pain, heavy bleeding, four smelling vaginal discharge. The patient was instructed to schedule a Follow up appointment in 2 weeks to discuss pathology results of the biopsy and treatment options. This note was generated with a voice recognition program. Some errors may have been overlooked during the review of this note. Sometimes these errors may affect the content or meaning of a given sentence. [id number] Biopsy Assessment & Plan Assessment & Plan (1) Abnormal uterine bleeding (AUB): Code(s): N93.9 - Abnormal uterine and vaginal bleeding, unspecified Plan: EMB done, see procedure note Orders: Orders AMB Endometrial Biopsy Today N93.9 - Abnormal uterine and vaginal bleeding, unspecified Coding Level of Care Code Procedure Only Diagnoses Abnormal uterine bleeding (AUB) N93.9 CPT Codes Endometrial Biopsy - CPT: 08956-Hzxrmtbethe Biopsy ([id number])
[2023-10-30 12:35] VITALS: BP 124/74; BMI 29.4
== END 2023-10-30 12:54 | disposition home or self-care (01) ==
LOC: HO.HWS 11:59
PROVIDERS: PCP Family Medicine; Referring Provider Family Medicine; Visit Provider Obstetrics & Gynecology
DX: N93.9 Abnormal uterine and vaginal bleeding, unspecified (principal); Z32.02 Encounter for pregnancy test, result negative
CPT/HCPCS: 58100

== ENCOUNTER 2023-10-30 11:59 | Outpatient (REF) | payer MEDICAID, SELFPAY | END 2023-10-30 12:00 | disposition home or self-care (01) | LOC: HO.LNP 11:59 | PROVIDERS: PCP Family Medicine; Visit Provider Obstetrics & Gynecology | DX: N93.9 Abnormal uterine and vaginal bleeding, unspecified (principal) | CPT/HCPCS: 58100; 81025; 88305 ==

== ENCOUNTER 2023-11-08 13:44 | Outpatient (REF) | payer MEDICAID, SELFPAY ==
--- NOTE | ~2023-11-08 | US_ITS ---
EXAMINATION: US PELVIS CLINICAL INFORMATION: History of ovarian cysts, irregular periods LMP: September for one month COMPARISON: Pelvic ultrasound 10/03/2023 TECHNIQUE: Ultrasound of the pelvis is performed using both transabdominal and transvaginal transducers along with Doppler. Transvaginal imaging is performed due to inadequate visualization transabdominally. FINDINGS: Uterus: The uterus is anteverted and measures 8.4 x 4.6 x 5.5 cm. The uterus is diffusely heterogeneous with multiple cystic areas. 1.2 x 0.8 x 1.0 cm myometrial cyst is seen on the left. The endometrial thickness 0.3 cm. Adnexa: Both ovaries are visualized. There is normal color flow to the adnexa. There is no ovarian torsion. There is no pelvic ascites or fluid collection. Right ovary measures 2.8 x 1.8 x 2.1 cm. Volume 5.4 mL. 1.4 x 1.8 x 1.9 cm simple follicle is seen. This is benign. No follow-up imaging is recommended. Left ovary measures 1.8 x 1.9 x 1.3 cm. Volume 2.3 mL. US/US pelvic and transvaginal IMPRESSION: 1. Heterogeneous uterus with 1.2 cm myometrial cyst on the left. 2. Normal ovaries.
== END 2023-11-08 13:45 | disposition home or self-care (01) ==
LOC: HO.US 13:44
PROVIDERS: PCP Family Medicine; Visit Provider Obstetrics & Gynecology
DX: N83.299 Other ovarian cyst, unspecified side (principal)
CPT/HCPCS: 76830; 76856

== ENCOUNTER 2023-11-26 10:52 | Outpatient (AMB) | payer MEDICAID, SELFPAY ==
--- NOTE | 2023-11-26 10:54 | A.OFFVIS_ITS ---
Intake Visit Reasons: stress incontinence Intake Note: New Patient presents for initial visit for incontinence Urology Medications: none Blood Thinner: none PVR: 0ml's Inspecting Supervisor Required: No Accompanied by: Self / Same As Patient Allergies No Known Allergies [No Known Allergies*] Allergy (Verified 11/26/23 11:29) Medication List - Last Reconciled 11/26/23 by MELONIE Murphy- amlodipine 1 tab PO DAILY ukojkrk-kaundhojrapax-fzllyjwr 250-250-65 mg (Excedrin Migraine) 1 tab PO Q4-6H PRN blood pressure test kit-large As directed ferrous sulfate 325 mg PO DAILY 30 days oxybutynin chloride ER 10 mg PO DAILY 30 days oxycodone 5 mg PO Q4H PRN rosuvastatin 10 mg PO DAILY HPI Comments Details: Arely is a very pleasant 48-year-old female patient of Dr. Lebron. She has a past medical history of anxiety, hemorrhoids, and constipation. She presents to the office today as a new patient for stress incontinence. When asked she reports symptoms have been present for quite some time however feels they are worsening. She reports having followed up with [facility] Dr. Alysha feldman for her ongoing right ovarian cyst. She reports possible upcoming intervention for right ovarian cyst with Dr. Encarnacion. She discusses her upcoming appointment to discuss treatment options. When asked she does report a history of 3 vaginal births of 3 large babies weighing approximately 9-10 lb. She reports labors were short. She otherwise denies nocturia, hematuria, dysuria, foul smelling urine, changes to urinary stream, flank pain, fever, and or chills. In office urinalysis results reviewed with the patient today. PVR 0 mL. She does have a history of nicotine dependence. Discussed correlation of bladder triggers and irritants with lower urinary tract symptoms. Discussed at length potential treatment options for stress incontinence to include pelvic floor therapy, medications, and or urodynamics for further assessment evaluation. She otherwise offers no other issues or concerns at this time. [facility] Medical History History of anxiety Bleeding hemorrhoids Constipation Hemorrhoid Surgical History H/O hand surgery History of tubal ligation History of tonsillectomy Family History Father Hx of tongue cancer Mother Alive and well Social History Household Members: Family Housing: Apartment Are you a primary ocular care aide to a significant other at home: No Do you presently have visiting nurse or other home services: No Alcohol intake: never Patient Tobacco Use Status: Current everyday Tobacco user Tobacco use type: Cigarette Cigarette Packs Per Day: 4 Years Smoked: 20+ service: No Current occupational status: disabled Female Reproductive History Menstrual Age of Menarche: 14 Review of Systems Const All systems reviewed & are unremarkable except as noted in HPI and below Physical Exam Const General: cooperative, healthy appearing, comfortable, no acute distress, well developed, alert and awake Orientation/consciousness: patient oriented x3 Limitations: no limitations HEENT Head: Yes normal to inspection, Yes normocephalic and Yes atraumatic Ears: hearing grossly normal bilaterally Eyes General: appearance normal, both eyes and all related structures Neck Neck: Yes normal visual inspection and Yes trachea midline Chest Chest palpation & inspection: normal inspection of the chest Resp Effort & Inspection: normal respiratory effort and able to speak in complete sentences Cardio Rate: regular rate GI Inspection: Yes normal to inspection General: Yes no CVA tenderness Back/Spine/Pelvis Back: no CVA tenderness Skin General skin exam: no rashes or lesions noted Neuro General: patient oriented x3 Extrem General: Yes normal to inspection Psych Appearance: grossly normal and well kempt Mental Status: mental status grossly normal Speech and movement: Normal speech and movement present and Clear speech present Affect: normal affect Attitude: cooperative Thought process: Normal thought process present Thought content: Normal thought content present Insight: Fair insight present (Psych) Judgement: Fair judgement present (Psych) Office Procedures Post Void Residual Post Residual Void Post Void Residual (PVR): 0 [id number] Void Residual by ultrasound Results AMB Urinalysis, Automated UA Leukoctes 0 Juarez/uL Last Edit by Marine Beckford on 11/26/23 11:12 UA Nitrite Last Edit by Marine Beckford on 11/26/23 11:12 UA Urobilinogen 0.2 mg/dL Last Edit by Marine Beckford on 11/26/23 11:12 UA Protein 0 mg/dL Last Edit by Marine Beckford on 11/26/23 11:12 UA pH 6.0 Last Edit by Marine Beckford on 11/26/23 11:12 UA Blood 0 Jalil/uL Last Edit by Marine Beckford on 11/26/23 11:12 UA Specific [place] 1.020 Last Edit by Marine Beckford on 11/26/23 11:12 UA Ketone Last Edit by Marine Beckford on 11/26/23 11:12 UA Bilirubin 0 mg/dL Last Edit by Marine Beckford on 11/26/23 11:12 UA Glucose 0 mg/dL Last Edit by Marine Beckford on 11/26/23 11:12 Results Reviewed Results Reviewed: Laboratory Last Values Urine pH (Auto) 6.0 11/26/23 10:58 Specific [place] (Auto) 1.020 11/26/23 10:58 Urine Protein (Auto) 0 mg/dL 11/26/23 10:58 Glucose (UA)(Auto) 0 mg/dL 11/26/23 10:58 Urine Blood (Auto) 0 Jalil/uL 11/26/23 10:58 Urine Bilirubin (Auto) 0 mg/dL 11/26/23 10:58 Urine Urobilinogen (Auto) 0.2 mg/dL 11/26/23 10:58 Leukocyte Esterase (Auto) 0 Juarez/uL 11/26/23 10:58 Assessment & Plan Assessment & Plan (1) Stress incontinence: Code(s): N39.3 - Stress incontinence (female) (male) Category: Medical Plan In office urinalysis results reviewed with the patient today; as noted above. PVR 0 mL. Discussed at length potential causes for stress incontinence as well as further management to include pelvic floor therapy, medications, and urodynamics for further assessment and evaluation. Discussed bladder triggers/irritants. Discussed, educated, and stressed the importance of limiting/quitting nicotine dependence for overall health and well-being. Discussed, educated, and stressed the importance of drinking plenty of water daily. Start oxybutynin as discussed and prescribed. Will obtain retroperitoneal ultrasound for further assessment evaluation. Follow-up in 6-8 weeks with PVR; or sooner with any issues, concerns, and or questions. Orders: Orders AMB Urinalysis Automated Today Z13.9 - Encounter for screening, unspecified AMB Post Void Residual by ultrasound Today R33.9 - Retention of urine, unspecified US retroperitoneal comp Today N39.3 - Stress incontinence (female) (male) Medications: New oxybutynin chloride ER 10 mg PO DAILY 30 days 30 tabs 1RF N32.81 - Overactive bladder Patient Instructions: The patient had an opportunity to ask questions regarding the treatment plan. All questions were answered. Physical exam, labs, and imaging were discussed and reviewed in detail. As well as risks, benefits, and discussion of treatment choices. No major barriers to understanding were identified. The patient expressed understanding and agreement with the above treatment plan. The patient was made aware they should contact our office by phone for worsening of their current condition, the appearance of new symptoms, or with any questions or concerns. Compliance is encouraged with any medications and follow up testing that is ordered. It is a privilege to be allowed the opportunity to participate in? your urological care.? Again, if you have any questions or concerns If you have any questions or concerns please do not hesitate to contact me. The office is [phone]. This note is constructed using voice recognition software. While every effort has been made to ensure accuracy boring inspector errors may have been included. Yours sincerely, SHEKHAR Murphy Coding Level of Care Code New Pt Level 4 (41229) Diagnoses Stress incontinence N39.3 CPT Codes Post Residual Void - PVR CPT Code: 73896-Ucjv Void Residual by ultrasound ([id number])
== END 2023-11-26 11:27 | disposition home or self-care (01) ==
PROVIDERS: PCP Family Medicine; Visit Provider Nurse Practitioner Family
DX: N39.3 Stress incontinence (female) (male) (principal); Z13.9 Encounter for screening, unspecified
CPT/HCPCS: 99204

== ENCOUNTER → 2023-11-26 10:52 | Outpatient (BNVA) | payer MEDICAID, SELFPAY | PROVIDERS: PCP Family Medicine; Visit Provider Nurse Practitioner Family | DX: N39.3 Stress incontinence (female) (male) (principal); R33.9 Retention of urine, unspecified | CPT/HCPCS: 51798; 81003; 99212 ==

== ENCOUNTER 2023-12-04 09:25 | Outpatient (AMB) | payer MEDICAID, SELFPAY ==
--- NOTE | 2023-12-04 09:31 | MHC.OFFVIS ---
Vital Signs 12/04/23 09:36 Height 5 ft 3 in Weight 165 lb 5.547 oz BMI 29.3 BP 122/74 Intake Visit Reasons: Ultrasound follow up/EMB follow up Hardware Test Engineer Required: Yes Hardware Test Engineer Language: Journalists And Other Writers Name: Katelyn HERNANDEZ Information Interpreted: non-clinical & clinical Accompanied by: Self / Same As Patient Allergies No Known Allergies [No Known Allergies*] Allergy (Verified 12/04/23 09:39) HPI Comments Details: The patient is presenting for follow-up to discuss the results of her abnormal uterine bleeding workup and options of treatment. The patient has not had any episodes of bleeding last few months. The following workup was done.: H&H= .6 TSH, prolactin, hCG, GC and chlamydia were negative. Endometrial biopsy pathology showed the following: Benign inactive endometrium with glandular and stromal breakdown, and benign endocervical glandular and scant squamous epithelium; no atypia or carcinoma Co testing was done in 08/13 was negative. Mammogram in 06/13 was BI-RADS 1. Pelvic ultrasound showed the following: Uterus: The uterus is anteverted and measures 8.4 x 4.6 x 5.5 cm. The uterus is diffusely heterogeneous with multiple cystic areas. 1.2 x 0.8 x 1.0 cm myometrial cyst is seen on the left. The endometrial thickness 0.3 cm. Adnexa: Both ovaries are visualized. There is normal color flow to the adnexa. There is no ovarian torsion. There is no pelvic ascites or fluid collection. Right ovary measures 2.8 x 1.8 x 2.1 cm. Volume 5.4 mL. 1.4 x 1.8 x 1.9 cm simple follicle is seen. This is benign. No follow-up imaging is recommended. Left ovary measures 1.8 x 1.9 x 1.3 cm. Volume 2.3 mL. [facility] Medical History History of anxiety Bleeding hemorrhoids Constipation Hemorrhoid Surgical History H/O hand surgery History of tubal ligation History of tonsillectomy Family History Father Hx of tongue cancer Mother Alive and well Social History Household Members: Family Housing: Apartment Are you a primary senior care specialist to a significant other at home: No Do you presently have visiting nurse or other home services: No Alcohol intake: never Patient Tobacco Use Status: Current everyday Tobacco user Tobacco use type: Cigarette Cigarette Packs Per Day: 4 Years Smoked: 20+ service: No Current occupational status: disabled Female Reproductive History Menstrual Age of Menarche: 14 Review of Systems Const All systems reviewed & are unremarkable except as noted in HPI and below Reports as per HPI and Reports no additional complaints GI Reports no additional complaints Reports no additional complaints Assessment & Plan Assessment & Plan (1) Menopause: Code(s): Z78.0 - Asymptomatic menopausal state Category: Medical Plan: Discussed with the patient the results of the work up done and options of treatment including expectant management, and in case of future vaginal bleeding medical treatment, endometrial ablation and hysterectomy. All pros, cons, risks and benefits if each option was discussed with the patient and the patient decided to think about it and get back to us. Instructions given to patient to call in case of any future vaginal bleeding will proceed with further management including endometrial sampling to rule out endometrial pathology. All questions answered the patient verbalized understanding. Coding Level of Care Code Est Pt Level 3 (27785) Diagnoses Menopause Z78.0
[2023-12-04 09:36] VITALS: BP 122/74; BMI 29.3
== END 2023-12-04 09:54 | disposition home or self-care (01) ==
PROVIDERS: PCP Family Medicine; Referring Provider Family Medicine; Visit Provider Obstetrics & Gynecology
DX: Z78.0 Asymptomatic menopausal state (principal)
CPT/HCPCS: 99213

== ENCOUNTER → 2023-12-04 09:25 | Outpatient (BNVA) | payer MEDICAID, SELFPAY | PROVIDERS: PCP Family Medicine; Visit Provider Obstetrics & Gynecology | DX: Z78.0 Asymptomatic menopausal state (principal) | CPT/HCPCS: 99212 ==

== ENCOUNTER 2024-01-22 13:01 | Outpatient (REF) | payer MEDICAID, SELFPAY ==
--- NOTE | ~2024-01-22 | US_ITS ---
EXAMINATION: US RETROPERITONEAL COMPLETE (RENAL) CLINICAL INFORMATION: Stress incontinence. COMPARISON: Renal ultrasound 12/04/2017. TECHNIQUE: Real-time imaging of the kidneys and bladder. FINDINGS: RIGHT KIDNEY: 11.1 x 5.3 x 4.7 cm (SAG x AP x TRV). The kidney is normal in size, contour, and echogenicity. Renal cortical thickness is normal. There are some scattered echogenic foci seen of questionable significance. No definitive calculi or focal parenchymal lesions. No hydronephrosis. LEFT KIDNEY: 10.5 x 4.2 x 4.0 cm (SAG x AP x TRV). The kidney is normal in size, contour, and echogenicity. Renal cortical thickness is normal. There are some scattered echogenic foci seen of questionable significance. No definitive calculi or focal parenchymal lesions. No hydronephrosis. BLADDER: Well distended and normal. Bilateral ureteral jets are demonstrated. Prevoid bladder volume is 336 mL. Postvoid bladder volume is 8.7 mL. US/US retroperitoneal comp IMPRESSION: No significant abnormality is seen.
== END 2024-01-22 13:02 | disposition home or self-care (01) ==
LOC: HO.US 13:01
PROVIDERS: PCP Family Medicine; Visit Provider Nurse Practitioner Family
DX: N39.3 Stress incontinence (female) (male) (principal)
CPT/HCPCS: 76770

== ENCOUNTER 2024-02-27 15:05 | Outpatient (AMB) | payer MEDICAID, SELFPAY ==
--- NOTE | 2024-02-27 15:28 | A.OFFVIS_ITS ---
Intake Visit Reasons: 7w/US(set) Intake Note: Patient presents today for follow up visit on: incontinence and ultrasound results Imaging Completed: 01/22/24 Urology Medications: none Blood Thinner: none PVR: 0ml's Nuclear Physician Required: No Accompanied by: Self / Same As Patient Allergies No Known Allergies [No Known Allergies*] Allergy (Verified 02/27/24 15:59) Medication List - Last Reconciled 02/27/24 by Geneva Mcleod, [employer]- amlodipine 1 tab PO DAILY ckxmfzi-exqoblhjkpvlt-sfjwerua 250-250-65 mg (Excedrin Migraine) 1 tab PO Q4-6H PRN blood pressure test kit-large As directed ferrous sulfate 325 mg PO DAILY 30 days mirabegron ER (Myrbetriq) 25 mg PO DAILY 30 days rosuvastatin 10 mg PO DAILY HPI Comments Details: Arely is a very pleasant 48-year-old female patient of Dr. Lebron. She has a past medical history of anxiety, hemorrhoids, and constipation. She presents to the office today for follow-up. Of note, patient was seen approximately 3 months ago as a new patient for stress incontinence at which time a retroperitoneal ultrasound was ordered and the patient was started on oxybutynin. Recent retroperitoneal ultrasound results reviewed with the patient today. Bilateral kidneys with no renal calculi or lesions noted. The bladder is well distended and normal. Bladder ureteral jets are demonstrated. Pre void bladder volume is approximately 330 mL. Postvoid bladder volume is approximately 10 mL. In discussion with the patient today she reports noting minimal improvement in stress/mixed incontinence she had been experiencing with oxybutynin. When asked she does report a history of 3 vaginal births of 3 large babies weighing approximately 9-10 lb. She reports labors were short. She otherwise denies nocturia, hematuria, dysuria, foul smelling urine, changes to urinary stream, flank pain, fever, and or chills. In office urinalysis results reviewed with the patient today. PVR 0 mL. She does have a history of nicotine dependence. Discussed correlation of bladder triggers and irritants with lower urinary tract symptoms. Discussed at length potential treatment options for stress incontinence to include pelvic floor therapy, medications, and or urodynamics for further assessment evaluation. She otherwise offers no other issues or concerns at this time. [facility] Medical History History of anxiety Bleeding hemorrhoids Constipation Hemorrhoid Surgical History H/O hand surgery History of tubal ligation History of tonsillectomy Family History Father Hx of tongue cancer Mother Alive and well Social History Household Members: Family Housing: Apartment Are you a primary associate director career services to a significant other at home: No Do you presently have visiting nurse or other home services: No Alcohol intake: never Patient Tobacco Use Status: Current everyday Tobacco user Tobacco use type: Cigarette Cigarette Packs Per Day: 4 Years Smoked: 20+ service: No Current occupational status: disabled Female Reproductive History Menstrual Age of Menarche: 14 Review of Systems Const All systems reviewed & are unremarkable except as noted in HPI and below Physical Exam Const General: cooperative, healthy appearing, comfortable, no acute distress, well developed, alert and awake Orientation/consciousness: patient oriented x3 Limitations: no limitations HEENT Head: Yes normal to inspection, Yes normocephalic and Yes atraumatic Ears: hearing grossly normal bilaterally Eyes General: appearance normal, both eyes and all related structures Neck Neck: Yes normal visual inspection and Yes trachea midline Chest Chest palpation & inspection: normal inspection of the chest Resp Effort & Inspection: normal respiratory effort and able to speak in complete sentences Cardio Rate: regular rate GI Inspection: Yes normal to inspection General: Yes no CVA tenderness Back/Spine/Pelvis Back: no CVA tenderness Skin General skin exam: no rashes or lesions noted Neuro General: patient oriented x3 Extrem General: Yes normal to inspection Psych Appearance: grossly normal and well kempt Mental Status: mental status grossly normal Speech and movement: Normal speech and movement present and Clear speech present Affect: normal affect Attitude: cooperative Thought process: Normal thought process present Thought content: Normal thought content present Insight: Fair insight present (Psych) Judgement: Fair judgement present (Psych) Office Procedures Post Void Residual Post Residual Void Post Void Residual (PVR): 0 [id number] Void Residual by ultrasound Results AMB Urinalysis, Automated UA Leukoctes 0 Juarez/uL Last Edit by Marine Beckford on 02/27/24 15:41 UA Nitrite Negative Last Edit by MoodM[employer]rist[employer] Beckford on 02/27/24 15:41 UA Urobilinogen 0.2 mg/dL Last Edit by MoodM[employer]ristophe Beckford on 02/27/24 15:41 UA Protein 15 mg/dL Last Edit by MoodMechristophe Beckford on 02/27/24 15:41 UA pH 6.0 Last Edit by MoodMechristophe Beckford on 02/27/24 15:41 UA Blood 0 Jalil/uL Last Edit by [employer] [facility] on 02/27/24 15:41 UA Specific Gower 1.025 Last Edit by [employer] on 02/27/24 15:41 UA Ketone Negative Last Edit by [employer] on 02/27/24 15:41 UA Bilirubin 0 mg/dL Last Edit by MoodMechristophe Beckford on 02/27/24 15:41 UA Glucose 0 mg/dL Last Edit by MoodMechristophe Beckford on 02/27/24 15:41 Results Reviewed Results Reviewed: Laboratory Last Values Urine pH (Auto) 6.0 02/27/24 15:40 Specific Gower (Auto) 1.025 02/27/24 15:40 Urine Protein (Auto) 15 mg/dL 02/27/24 15:40 Glucose (UA)(Auto) 0 mg/dL 02/27/24 15:40 Urine Ketones (Auto) Negative 02/27/24 15:40 Urine Blood (Auto) 0 Jalil/uL 02/27/24 15:40 Urine Nitrite (Auto) Negative 02/27/24 15:40 Urine Bilirubin (Auto) 0 mg/dL 02/27/24 15:40 Urine Urobilinogen (Auto) 0.2 mg/dL 02/27/24 15:40 Leukocyte Esterase (Auto) 0 Juarez/uL 02/27/24 15:40 Date of Service: 01/22/24 EXAMINATION: US RETROPERITONEAL COMPLETE (RENAL) FINDINGS: RIGHT KIDNEY: 11.1 x 5.3 x 4.7 cm (SAG x AP x TRV). The kidney is normal in size, contour, and echogenicity. Renal cortical thickness is normal. There are some scattered echogenic foci seen of questionable significance. No definitive calculi or focal parenchymal lesions. No hydronephrosis. LEFT KIDNEY: 10.5 x 4.2 x 4.0 cm (SAG x AP x TRV). The kidney is normal in size, contour, and echogenicity. Renal cortical thickness is normal. There are some scattered echogenic foci seen of questionable significance. No definitive calculi or focal parenchymal lesions. No hydronephrosis. BLADDER: Well distended and normal. Bilateral ureteral jets are demonstrated. Prevoid bladder volume is 336 mL. Postvoid bladder volume is 8.7 mL. IMPRESSION: No significant abnormality is seen. Assessment & Plan Assessment & Plan (1) Stress incontinence: Code(s): N39.3 - Stress incontinence (female) (male) Category: Medical Plan In office urinalysis results reviewed with the patient today; as noted above. PVR 0 mL. Discussed at length potential causes for stress incontinence as well as further management to include pelvic floor therapy, medications, and urodynamics for further assessment and evaluation. Discussed bladder triggers/irritants. Discussed, educated, and stressed the importance of limiting/quitting nicotine dependence for overall health and well-being. Discussed, educated, and stressed the importance of drinking plenty of water daily. Stop oxybutynin. Recent retroperitoneal ultrasound results reviewed with the patient today; as noted above. Start Myrbetriq 25 mg daily as discussed and prescribed. Follow-up in 6 weeks; or sooner with any issues, concerns, and or questions. Orders: Orders AMB Post Void Residual by ultrasound Today N39.3 - Stress incontinence (female) (male) AMB Urinalysis Automated Today Z13.9 - Encounter for screening, unspecified Medications: New mirabegron ER (Myrbetriq) 25 mg PO DAILY 30 tabs 1RF 30 days N30.10 - Interstitial cystitis (chronic) without hematuria, N32.81 - Overactive bladder, R35.1 - Nocturia, R39.15 - Urgency of urination Discontinued oxybutynin chloride ER Discontinued Reason: Doctor's Order 10 mg PO DAILY 30 days 30 tabs 1RF N32.81 - Overactive bladder Patient Instructions: The patient had an opportunity to ask questions regarding the treatment plan. All questions were answered. Physical exam, labs, and imaging were discussed and reviewed in detail. As well as risks, benefits, and discussion of treatment choices. No major barriers to understanding were identified. The patient expressed understanding and agreement with the above treatment plan. The patient was made aware they should contact our office by phone for worsening of their current condition, the appearance of new symptoms, or with any questions or concerns. Compliance is encouraged with any medications and follow up testing that is ordered. It is a privilege to be allowed the opportunity to participate in? your urological care.? Again, if you have any questions or concerns If you have any questions or concerns please do not hesitate to contact me. The office is [phone]. This note is constructed using voice recognition software. While every effort has been made to ensure accuracy supervisor assembly stock errors may have been included. Yours sincerely, MELONIE Murphy-ANGELINA Coding Level of Care Code Est Pt Level 4 (52123) Diagnoses Stress incontinence N39.3 CPT Codes Post Residual Void - PVR CPT Code: 77146-Exnp Void Residual by ultrasound ([id number])
== END 2024-02-27 15:49 | disposition home or self-care (01) ==
PROVIDERS: PCP Family Medicine; Visit Provider Nurse Practitioner Family
DX: N39.3 Stress incontinence (female) (male) (principal); Z13.9 Encounter for screening, unspecified
CPT/HCPCS: 99214

== ENCOUNTER → 2024-02-27 15:05 | Outpatient (BNVA) | payer MEDICAID, SELFPAY | PROVIDERS: PCP Family Medicine; Visit Provider Nurse Practitioner Family | DX: N39.3 Stress incontinence (female) (male) (principal) | CPT/HCPCS: 51798; 81003; 99212 ==

== ENCOUNTER 2024-04-16 16:15 | Outpatient (AMB) | payer MEDICAID, SELFPAY ==
--- NOTE | 2024-04-16 16:16 | A.OFFVIS_ITS ---
Intake Visit Reasons: 2m follow up Intake Note: Patient presents today for follow up visit on: incontinence Urology Medications: d/c oxybutynin, myrbetriq Blood Thinner: none Settlement Technician Required: Yes Settlement Technician Name: [id number] Accompanied by: Self / Same As Patient Allergies No Known Allergies [No Known Allergies*] Allergy (Verified 04/16/24 16:20) Medication List - Last Reconciled 04/16/24 by MELONIE Murphy-ANGELINA amlodipine 1 tab PO DAILY yhkgvgy-etxvjrrugklxi-bymeedrn 250-250-65 mg (Excedrin Migraine) 1 tab PO Q4-6H PRN blood pressure test kit-large As directed ferrous sulfate 325 mg PO DAILY 30 days mirabegron ER (Myrbetriq) 25 mg PO DAILY 30 days rosuvastatin 10 mg PO DAILY HPI Comments Details: Arely is a very pleasant 48-year-old female patient of Dr. Lebron. She has a past medical history of anxiety, hemorrhoids, and constipation. She is being followed up on today via telehealth. Of note, patient was seen approximately 6 weeks ago at which time oxybutynin was discontinued and she was started on 25 mg of Myrbetriq daily. In discussion with the patient today she reports having never picked up her prescription from the pharmacy. We discussed importance in doing so. She continues to report mixed urinary incontinence. Previous workup has included a retroperitoneal ultrasound 02/11 noting bilateral kidneys with no renal calculi or lesions noted. The bladder is well distended and normal. Bladder ureteral jets are demonstrated. Pre void bladder volume is approximately 330 mL. Postvoid bladder volume is approximately 10 mL. She has a history of 3 vaginal births of 3 large babies weighing approximately 9-10 lb. She reports labors were short. She otherwise denies nocturia, hematuria, dysuria, foul smelling urine, changes to urinary stream, flank pain, fever, and or chills. She does have a history of nicotine dependence. Discussed correlation of bladder triggers and irritants with lower urinary tract symptoms. Discussed at length potential treatment options for stress incontinence to include pelvic floor therapy, medications, and or urodynamics for further assessment evaluation. She otherwise offers no other issues or concerns at this time. [facility] Medical History History of anxiety Bleeding hemorrhoids Constipation Hemorrhoid Surgical History H/O hand surgery History of tubal ligation History of tonsillectomy Family History Father Hx of tongue cancer Mother Alive and well Social History Household Members: Family Housing: Apartment Are you a primary pet care attendant to a significant other at home: No Do you presently have visiting nurse or other home services: No Alcohol intake: never Patient Tobacco Use Status: Current everyday Tobacco user Tobacco use type: Cigarette Cigarette Packs Per Day: 4 Years Smoked: 20+ service: No Current occupational status: disabled Female Reproductive History Menstrual Age of Menarche: 14 Review of Systems Const All systems reviewed & are unremarkable except as noted in HPI and below Physical Exam Const General: cooperative Orientation/consciousness: patient oriented x3 Resp Effort & Inspection: able to speak in complete sentences Neuro General: patient oriented x3 Psych Attitude: cooperative Thought process: Normal thought process present Thought content: Normal thought content present Insight: Fair insight present (Psych) Judgement: Fair judgement present (Psych) Telehealth Telehealth Telehealth Platform: [facility] Location of provider rendering services: practice address Location of patient: address on file Patient Identification confirmed using: Name, : Yes Telehealth method: voice only Patient verbally consented to treatment: Yes Patient verbally consented to billing insurance company: Yes Patient informed of any privacy concerns related to visit: Yes Minutes spent on Phone/Video with Pt.: 15 Results Reviewed Results Reviewed: Date of Service: 01/22/24 EXAMINATION: US RETROPERITONEAL COMPLETE (RENAL) FINDINGS: RIGHT KIDNEY: 11.1 x 5.3 x 4.7 cm (SAG x AP x TRV). The kidney is normal in size, contour, and echogenicity. Renal cortical thickness is normal. There are some scattered echogenic foci seen of questionable significance. No definitive calculi or focal parenchymal lesions. No hydronephrosis. LEFT KIDNEY: 10.5 x 4.2 x 4.0 cm (SAG x AP x TRV). The kidney is normal in size, contour, and echogenicity. Renal cortical thickness is normal. There are some scattered echogenic foci seen of questionable significance. No definitive calculi or focal parenchymal lesions. No hydronephrosis. BLADDER: Well distended and normal. Bilateral ureteral jets are demonstrated. Prevoid bladder volume is 336 mL. Postvoid bladder volume is 8.7 mL. IMPRESSION: No significant abnormality is seen Assessment & Plan Assessment & Plan (1) Stress incontinence: Code(s): N39.3 - Stress incontinence (female) (male) Category: Medical Plan Discussed at length potential causes for stress incontinence as well as further management to include pelvic floor therapy, medications, and urodynamics for further assessment and evaluation. Discussed bladder triggers/irritants. Discussed, educated, and stressed the importance of limiting/quitting nicotine dependence for overall health and well-being. Discussed, educated, and stressed the importance of drinking plenty of water daily. Start Myrbetriq 25 mg daily as discussed and prescribed; Follow-up in 1-3 months with PVR; or sooner with any issues, concerns, and or questions. Medications: Refilled mirabegron ER (Myrbetriq) 25 mg PO DAILY 30 days 30 tabs 2RF N32.81 - Overactive bladder, R35.1 - Nocturia Patient Instructions: The patient had an opportunity to ask questions regarding the treatment plan. All questions were answered. Physical exam, labs, and imaging were discussed and reviewed in detail. As well as risks, benefits, and discussion of treatment choices. No major barriers to understanding were identified. The patient expressed understanding and agreement with the above treatment plan. The patient was made aware they should contact our office by phone for worsening of their current condition, the appearance of new symptoms, or with any questions or concerns. Compliance is encouraged with any medications and follow up testing that is ordered. It is a privilege to be allowed the opportunity to participate in? your urological care.? Again, if you have any questions or concerns If you have any questions or concerns please do not hesitate to contact me. The office is [phone]. This note is constructed using voice recognition software. While every effort has been made to ensure accuracy manager documentation errors may have been included. Yours sincerely, MELONIE Murphy-ANGELINA Coding Level of Care Code Tele Est Pt Level 2 (69803) Diagnoses Stress incontinence N39.3 Time Spent (min) 15
== END 2024-04-16 16:35 ==
LOC: HO.HUSH 16:16
PROVIDERS: PCP Family Medicine; Visit Provider Nurse Practitioner Family
DX: N39.3 Stress incontinence (female) (male) (principal)
CPT/HCPCS: 99212

== ENCOUNTER → 2024-04-16 16:15 | Outpatient (BNVA) | payer MEDICAID, SELFPAY | PROVIDERS: PCP Family Medicine; Visit Provider Nurse Practitioner Family ==

== ENCOUNTER 2024-06-19 18:49 | Emergency (ER) | payer MEDICAID, SELFPAY ==
--- NOTE | ~2024-06-19 | XR_ITS ---
EXAMINATION: XR CHEST CLINICAL INFORMATION: cough, SOB COMPARISON: Prior chest 04/10/2019 TECHNIQUE: 2 views of the chest were obtained. FINDINGS: No significant abnormality is noted involving the heart, lungs, mediastinum, bony thorax or soft tissues. XR/XR chest 2V IMPRESSION: Unremarkable examination. Electronically signed by: Yon Avila MD 06/19/2024 08:44 PM [facility] [place]
[2024-06-19 19:14] VITALS: BP 113/70; PULSE 95; RESP 16; TEMP 36.3; O2SAT 99; BMI 26.6
--- NOTE | 2024-06-19 19:15 | ED_ITS ---
HPI - General Adult General Chief complaint: Upper Respiratory Symptoms Stated complaint: Diarrhea and discomfort Time Seen by Provider: 06/19/24 23:51 History of Present Illness ED Provider: Inocencia MAGANA narrative: The patient is a 49-year-old woman who comes to the emergency room after 3 days of feeling unwell. She says that she woke up 2 mornings ago on Saturday morning with the abdominal discomfort. She developed diarrhea. She had 3 or 4 loose stools throughout the day on Saturday. Yesterday was Thanksgiving. She went to [employer] at her brother's. She was able to some food but she did not have a great appetite. She had no nausea or vomiting however. She had maybe 2 loose stools yesterday. This morning she had a loose stool and has not had a bowel movement since. She has also had a cough and runny nose and a sense of congestion. She felt very fatigued this afternoon and came to the emergency room for evaluation. No definite fever at any point. No sputum production. No vomiting at any point. No blood in her stool. She is not having significant abdominal pain at the moment. Related Data Home Medications ?Medication ?Instructions ?Recorded ?Confirmed amlodipine 5 mg tablet 1 tab PO DAILY 04/06/22 11/22/23 blood pressure test kit-large #1 ea 07/30/22 11/22/23 rosuvastatin 10 mg tablet 10 mg PO DAILY 07/30/22 11/22/23 apzkian-wpdeigitkqugh-xkdqxhvs 250 1 tab PO Q4-6H PRN 11/26/23 mg-250 mg-65 mg tablet (Excedrin Migraine) Previous Rx's ?Medication ?Instructions ?Recorded ferrous sulfate 325 mg (65 mg 325 mg PO DAILY 30 days #30 tabs 10/31/23 iron) tablet,delayed release mirabegron 25 mg tablet,extended 25 mg PO DAILY 30 days #30 tabs 04/16/24 release 24 hr (Myrbetriq) ibuprofen 400 mg tablet 400 mg PO Q6H PRN pain #14 tabs 06/20/24 prochlorperazine maleate 10 mg 10 mg PO Q6H PRN nausea and 06/20/24 tablet (Compazine) vomiting #10 tabs Allergies Allergy/AdvReac Type Severity Reaction Status Date / Time No Known Allergies Allergy Verified 06/19/24 19:16 [No Known Allergies*] [facility] Past Medical History Medical History History of anxiety Bleeding hemorrhoids Constipation Hemorrhoid Surgical History H/O hand surgery History of tubal ligation History of tonsillectomy Family History Family History Father Hx of tongue cancer Mother Alive and well Social History Social History Household Members: Family Housing: Apartment Are you a primary account executive healthcare to a significant other at home: No Do you presently have visiting nurse or other home services: No Alcohol intake: never Patient Tobacco Use Status: Current everyday Tobacco user Tobacco use type: Cigarette Cigarette Packs Per Day: 4 Years Smoked: 20+ Advance Directives: No Advance Directives Information Provided: Yes service: No Current occupational status: disabled Physical Exam ED Vital Signs: Vital Signs - 24 hr 06/19/24 19:14 06/19/24 23:37 06/20/24 01:00 Temperature 97.3 F 98.3 F 98.8 F Pulse Rate 95 77 69 Respiratory Rate 16 16 18 Blood Pressure 113/70 139/75 119/68 Pulse Oximetry 99 97 99 Oxygen Delivery Method Room Air Room Air Room Air BMI result Body Mass Index 26.6 Const Other: The patient is awake and alert. The patient does not appear obviously ill. She looks somewhat tired but not otherwise toxic. [facility] Head: Yes normal to inspection Face and sinus: Yes normal facial exam Mouth: Normal oral and palatal mucosa present and moist mucous membranes Eyes General: appearance normal, both eyes and all related structures Neck Neck: Yes full ROM and Yes no lymphadenopathy Resp Effort & Inspection: normal respiratory effort Auscultation: clear to auscultation bilaterally Cardio Rate: regular rate Rhythm: regular rhythm Heart sounds: S1 normal heart sound present and S2 normal heart sound present GI Other: Abdomen is soft and nontender Skin Other: Skin is pale and dry General skin exam: no rashes or lesions noted Neuro Other: The patient is awake and alert with a normal mental status. Gait is normal. The patient seems grossly neurologically intact. Extrem Other: No peripheral edema, no calf swelling or tenderness Course Course Course Narrative: This is an RME: Additional HPI, ROS, PE not included below will be deferred to primary provider. RME assessment and note performed by: Rosa Coffman PA-C This is a 56-busw-olu-female who presents to the ER with complaints of diarrhea, cough, congestion. Medications Administered Discontinued Medications Generic Name Dose Route Start Last Admin Trade Name Genie PRN Reason Stop Dose Admin Acetaminophen 975 mg 06/20/24 00:03 06/20/24 00:58 Acetaminophen 325 Mg Tablet PO 06/20/24 00:04 975 mg ONCE ONE Administration Ibuprofen 400 mg 06/20/24 00:03 06/20/24 00:59 Ibuprofen 400 Mg Tablet PO 06/20/24 00:04 400 mg ONCE ONE Administration Prochlorperazine Maleate 10 mg 06/20/24 00:03 06/20/24 00:58 Prochlorperazine Maleate 5 Mg Tablet PO 06/20/24 00:04 10 mg ONCE ONE Administration Medical Decision Making Medical Decision Making MDM Narrative: The patient is a 49-year-old woman who has felt unwell for 3 days. She has had some diarrhea and some respiratory symptoms. Her testing in the emergency room is unremarkable. Chest x-ray is unremarkable. Labs are unremarkable. I suspect she has a viral illness that can be treated symptomatically. She was discharged with a prescriptions for prochlorperazine and ibuprofen. Lab Data 06/19/24 19:26 06/19/24 19:26 Labs: Lab Results 06/19/24 Range/Units 19:26 WBC 13.9 H (4.8-10.8) X10*3/uL RBC 4.29 (4.20-5.50) X10*6/uL Hgb 13.1 (12.0-16.0) g/dl Hct 38.4 (37.0-47.0) % MCV 89.5 (80.0-98.0) fL MCH 30.5 (27.0-33.0) pg MCHC 34.1 (31.0-35.0) g/dl RDW 13.3 (11.0-16.0) % Plt Count 462 H (160-400) X10*3/uL MPV 8.8 L (9.4-12.3) fL Immature Gran % (Auto) 0.3 (0.0-0.4) % Neut % (Auto) 55.7 (45-73) % Lymph % (Auto) 35.7 (20-40) % [place] % (Auto) 6.4 (2-11) % Eos % (Auto) 1.4 (0-4) % Baso % (Auto) 0.5 (0-2) % Lymph # (Auto) 5.0 H (1.2-4.9) X10*3/uL [place] # (Auto) 0.9 (0.1-1.2) X10*3/uL Eos # (Auto) 0.2 (0.0-0.4) X10*3/uL Baso # (Auto) 0.1 (0.0-0.2) X10*3/uL Abs Immat Gran (auto) 0.04 H (0.00-0.03) X10*3/uL Absolute Neuts (auto) 7.8 (2.0-8.3) x10*3/uL Absolute Nucleated RBC 0.000 (0.0-0.012) X10*3/uL Nucleated RBC % (auto) 0.0 (0.0-0.2) /100WBC Sodium 141 (135-145) mmol/L Potassium 3.9 (3.3-5.1) mmol/L Chloride 108 (96-108) mmol/L Carbon Dioxide 23 (22-29) mmol/L Anion Gap 14 (12-20) BUN 7 L (9-16) mg/dL Creatinine 0.80 (0.5-1.4) mg/dL Estim Creat Clear Calc 80.4 Estimated GFR > 60 Random Glucose 104 (60-115) mg/dL Calcium 8.9 D (8.4-10.2) mg/dL Magnesium 2.2 (1.6-2.6) mg/dL Total Bilirubin 0.3 (0.0-1.0) mg/dL Direct Bilirubin 0.1 (0.0-0.5) mg/dL AST 24 (5-31) U/L ALT 25 (0-31) U/L Alkaline Phosphatase 120 H (39-117) U/L Troponin I High Sens < 2.7 (<3.5-17.0) ng/L Total Protein 7.4 (6.5-8.0) g/dL Albumin 4.3 (3.5-5.0) g/dL Lipase 14 (8-78) U/L Influenza Type A (PCR) NEGATIVE (Negative) Influenza Type B (PCR) NEGATIVE (Negative) RSV RNA Qual (PCR) NEGATIVE (Negative) SARS-CoV-2 RNA (RT-PCR) NEGATIVE (Negative) Discharge Plan Discharge Clinical Impression: Acute viral syndrome, Diarrhea, Cough, Stuffy and runny nose Patient Disposition: Home, Self-Care Additional Instructions: Your testing in the emergency room today seems reassuring. I think you have a viral bug which will need to run its own course. My hope is that you will start to feel better over the next couple of days. I have sent a prescription for prochlorperazine (Compazine) which you may use as needed for nausea. You may use ibuprofen and acetaminophen for discomfort. Rest and take it easy. Drink lot of fluids. My hope is you will get better in the next few days. Contact your regular doctor if you have any questions or concerns. Return to the emergency room if significantly worse. Prescriptions: New prochlorperazine maleate [Compazine] 10 mg tablet 10 mg PO Q6H PRN (Reason: nausea and vomiting) Qty: 10 0RF ibuprofen 400 mg tablet 400 mg PO Q6H PRN (Reason: pain) Qty: 14 0RF No Action ferrous sulfate 325 mg (65 mg iron) tablet,delayed release (DR/EC) 325 mg PO DAILY 30 Days Qty: 30 1RF amlodipine 5 mg tablet 1 tab PO DAILY rosuvastatin 10 mg tablet 10 mg PO DAILY (DME) blood pressure test kit-large Kit See Rx Instructions .ROUTE .MEDSUPPLY Qty: 1 Rx Instructions: As directed mirabegron [Myrbetriq] 25 mg tablet extended release 24 hr 25 mg PO DAILY 30 Days Qty: 30 2RF Excedrin Migraine 250-250-65 mg tablet 1 tab PO Q4-6H PRN Referrals: Rosa Lebron MD [Primary Care Provider] - (Diarrhea and upper respiratory symptoms) Interventions: ED Discharge Assessment Last Done: 06/20/24 01:00 Discharge Date/Time: 06/20/24 01:02 Print Language: Kiswahili
[2024-06-19 19:37] LABS: MANUAL DIFF FLAG NO
[2024-06-19 20:00] LABS: Alanine Aminotransferase 25 U/L (0-31); Albumin Level 4.3 g/dL (3.5-5.0); Alkaline Phosphatase 120 U/L (39-117); Anion Gap 14 (12-20); Aspartate Amino Transferase 24 U/L (5-31); Bilirubin Direct 0.1 mg/dL (0.0-0.5); Bilirubin Total 0.3 mg/dL (0.0-1.0); Blood Urea Nitrogen 7 mg/dL (9-16); Calcium 8.9 mg/dL (8.4-10.2); Carbon Dioxide 23 mmol/L (22-29); Chloride 108 mmol/L (96-108); Creatinine Clr Calc Pharmacy 80.4; Estimated Glomerular Filt Rate > 60; Glucose Random 104 mg/dL (60-115); Lipase 14 U/L (8-78); Magnesium 2.2 mg/dL (1.6-2.6); Potassium 3.9 mmol/L (3.3-5.1); Sodium 141 mmol/L (135-145); Total Protein 7.4 g/dL (6.5-8.0)
[2024-06-19 20:14] LABS: Troponin-I High Sensitivity < 2.7 ng/L (<3.5-17.0)
[2024-06-19 20:25] LABS: Basophils Absolute Auto 0.1 X10*3/uL (0.0-0.2); Basophils Percent Auto 0.5 % (0-2); Eosinophils Absolute Auto 0.2 X10*3/uL (0.0-0.4); Eosinophils Percent Auto 1.4 % (0-4); Hematocrit 38.4 % (37.0-47.0); Hemoglobin 13.1 g/dl (12.0-16.0); Imm Gran Abs Auto 0.04 X10*3/uL (0.00-0.03); Imm Gran Pct Auto 0.3 % (0.0-0.4); Lymphocytes Percent Auto 35.7 % (20-40); Mean Corpuscular HGB Conc 34.1 g/dl (31.0-35.0); Mean Corpuscular Hemoglobin 30.5 pg (27.0-33.0); Mean Corpuscular Volume 89.5 fL (80.0-98.0); Mean Platelet Volume 8.8 fL (9.4-12.3); Monocytes Absolute Auto 0.9 X10*3/uL (0.1-1.2); Monocytes Percent Auto 6.4 % (2-11); Neutrophils Absolute Auto 7.8 x10*3/uL (2.0-8.3); Neutrophils Percent Auto 55.7 % (45-73); Platelet Count 462 X10*3/uL (160-400); Red Blood Count 4.29 X10*6/uL (4.20-5.50); Red Cell Distribution Width 13.3 % (11.0-16.0); White Blood Count 13.9 X10*3/uL (4.8-10.8)
[2024-06-19 20:30] LABS: Influenza A PCR NEGATIVE (Negative); Influenza B PCR NEGATIVE (Negative); Resp Syncy Virus RNA Qual PCR NEGATIVE (Negative); SARS COV2 PCR INHOUSE NEGATIVE (Negative)
[2024-06-19 23:37] VITALS: BP 139/75; PULSE 77; RESP 16; TEMP 36.8; O2SAT 97
[2024-06-20] MEDS: Acetaminophen 325 MG TABLET 975 MG PO (00:58)
[2024-06-20] MEDS: Prochlorperazine Maleate 5 MG TABLET 10 MG PO (00:58)
[2024-06-20] MEDS: Ibuprofen 400 MG TABLET PO (00:59)
[2024-06-20 01:00] VITALS: BP 119/68; PULSE 69; RESP 18; TEMP 37.1; O2SAT 99
== END 2024-06-20 01:02 | disposition home or self-care (01) ==
PROVIDERS: Physician Assistant Medical; Emergency Provider Emergency Medicine; PCP Family Medicine
DX: B34.9 Viral infection, unspecified (principal); R10.2 Pelvic and perineal pain; R05.9 Cough, unspecified; R09.89 Other specified symptoms and signs involving the circulatory and respiratory systems; R06.02 Shortness of breath; F17.210 Nicotine dependence, cigarettes, uncomplicated; Z03.818 Encounter for observation for suspected exposure to other biological agents ruled out; Z79.899 Other long term (current) drug therapy
CPT/HCPCS: 0241U; 71046; 80048; 80076; 83690; 83735; 84484; 85025; 99283

== ENCOUNTER 2024-07-06 12:33 | Outpatient (REF) | payer MEDICAID, SELFPAY | END 2024-07-06 12:34 | disposition home or self-care (01) | LOC: HO.MAMMO 12:33 | PROVIDERS: PCP Family Medicine; Visit Provider Family Medicine | DX: Z12.31 Encounter for screening mammogram for malignant neoplasm of breast (principal) | CPT/HCPCS: 77063; 77067 ==

== ENCOUNTER → 2024-07-06 13:00 | Outpatient (BNV) | payer MEDICAID, SELFPAY | PROVIDERS: PCP Family Medicine; Visit Provider Internal Medicine | DX: Z12.31 Encounter for screening mammogram for malignant neoplasm of breast (principal) | CPT/HCPCS: 77063; 77067 ==

== ENCOUNTER 2024-07-27 11:43 | Outpatient (REF) | payer MEDICAID, SELFPAY ==
[2024-07-27 11:59] LABS: MANUAL DIFF FLAG NO
[2024-07-27 12:10] LABS: Basophils Absolute Auto 0.1 X10*3/uL (0.0-0.2); Basophils Percent Auto 0.6 % (0-2); Eosinophils Absolute Auto 0.3 X10*3/uL (0.0-0.4); Eosinophils Percent Auto 2.4 % (0-4); Hemoglobin 14.3 g/dl (12.0-16.0); Imm Gran Abs Auto 0.03 X10*3/uL (0.00-0.03); Imm Gran Pct Auto 0.3 % (0.0-0.4); Lymphocytes Absolute Auto 3.8 X10*3/uL (1.2-4.9); Lymphocytes Percent Auto 32.4 % (20-40); Mean Corpuscular HGB Conc 33.3 g/dl (31.0-35.0); Mean Corpuscular Hemoglobin 30.8 pg (27.0-33.0); Mean Corpuscular Volume 92.7 fL (80.0-98.0); Mean Platelet Volume 8.6 fL (9.4-12.3); Monocytes Absolute Auto 0.8 X10*3/uL (0.1-1.2); Monocytes Percent Auto 6.9 % (2-11); Neutrophils Absolute Auto 6.8 x10*3/uL (2.0-8.3); Neutrophils Percent Auto 57.4 % (45-73); Platelet Count 432 X10*3/uL (160-400); Red Blood Count 4.64 X10*6/uL (4.20-5.50); Red Cell Distribution Width 13.1 % (11.0-16.0); White Blood Count 11.8 X10*3/uL (4.8-10.8)
[2024-07-27 12:57] LABS: Cholesterol 236 mg/dL (<200); HDL Cholesterol 39 mg/dL (>40); LDL Cholesterol Calculated 155 mg/dL (<100); Triglycerides 210 mg/dL (<150)
[2024-07-28 07:43] LABS: Follicle Stimulating Hormone 97.2 mIU/mL; Lutenizing Hormone 32.5 mIU/mL; Progesterone Immunoassay 0.6 ng/mL
[2024-07-31 21:23] LABS: Estrogen 33 pg/mL
== END 2024-07-27 11:44 | disposition home or self-care (01) ==
LOC: HO.LAB 11:43
PROVIDERS: PCP Family Medicine; Visit Provider Family Medicine
DX: N95.1 Menopausal and female climacteric states (principal); E78.5 Hyperlipidemia, unspecified
CPT/HCPCS: 36415; 80061; 82672; 83001; 83002; 84144; 85025

== ENCOUNTER 2024-08-03 13:48 | Outpatient (AMB) | payer MEDICAID, SELFPAY ==
--- NOTE | 2024-08-03 13:53 | A.OFFVIS_ITS ---
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 Lebron. She has a past medical history of anxiety, hemorrhoids, and constipation. She presents to the office today for follow-up of her ongoing lower urinary tract symptoms. In discussion with the patient today she reports no improvement in mixed urinary incontinence with trial of Myrbetriq 25 mg daily. She has also previously trialed oxybutynin with no improvement. Previous workup has included a retroperitoneal ultrasound 02/11 noting bilateral kidneys with no renal calculi or lesions noted. The bladder is well distended and normal. Bladder ureteral jets are demonstrated. Pre void bladder volume is approximately 330 mL. Postv oid bladder volume is approximately 10 mL. She has a history of 3 vaginal births of 3 large babies weighing approximately 9-10 lb. She reports labors were short. She otherwise denies nocturia, hematuria, dysuria, foul smelling urine, changes to urinary stream, flank pain, fever, and or chills. She does have a history of nicotine dependence. In office urinalysis results reviewed with the patient juan francisco nicole. She reports feeling stress incontinence to be most bothersome. We discussed further treatment options to include pelvic floor therapy, trial of a different medications, and or urodynamics for further assessment evaluation. She otherwise offers no other issues or concerns at this time. [facility] Medical History History of anxiety Bleeding hemorrhoids Constipation Hemorrhoid Surgical History H/O hand surgery History of tubal ligation History of tonsillectomy Family History Father Hx of tongue cancer Mother Alive and well Social History Household Members: Family Housing: Apartment Are you a primary healthcare network consultant to a significant other at home: No Do you presently have visiting nurse or other home services: No Alcohol intake: never Patient Tobacco Use Status: Current everyday Tobacco user Tobacco use type: Cigarette Cigarette Packs Per Day: 4 Years Smoked: 20+ service: No Current occupational status: disabled Female Reproductive History Menstrual Age of Menarche: 14 Review of Systems Const All systems reviewed & are unremarkable except as noted in HPI and below Physical Exam Const General: cooperative, healthy appearing, comfortable, no acute distress, well developed, alert and awake Orientation/consciousness: patient oriented x3 Limitations: no limitations HEENT Head: Yes normal to inspection, Yes normocephalic and Yes atraumatic Ears: hearing grossly normal bilaterally Eyes General: appearance normal, both eyes and all related structures Neck Neck: Yes normal visual inspection and Yes trachea midline Chest Chest palpation & inspection: normal inspection of the chest Resp Effort & Inspection: normal respiratory effort and able to speak in complete sentences Cardio Rate: regular rate GI Inspection: Yes normal to inspection General: Yes no CVA tenderness Back/Spine/Pelvis Back: no CVA tenderness Skin General skin exam: no rashes or lesions noted Neuro General: patient oriented x3 Extrem General: Yes normal to inspection Psych Appearance: grossly normal and well kempt Mental Status: mental status grossly normal Speech and movement: Normal speech and movement present and Clear speech present Affect: normal affect Attitude: cooperative Thought process: Normal thought process present Thought content: Normal thought content present Insight: Fair insight present (Psych) Judgement: Fair judgement present (Psych) Office Procedures Post Void Residual Post Residual Void Post Void Residual (PVR): 0 [id number] Void Residual by ultrasound Results AMB Urinalysis, Automated UA Leukoctes 0 Juarez/uL Last Edit by ALOK Cid on 08/03/24 14:09 UA Nitrite Negative Last Edit by ALOK Cid on 08/03/24 14:09 UA Urobilinogen 0.2 mg/dL Last Edit by ALOK Cid on 08/03/24 14:0 9 UA Protein 15 mg/dL Last Edit by ALOK Cid on 08/03/24 14:09 UA pH 6.5 Last Edit by ALOK Cid on 08/03/24 14:09 UA Blood 0 Jalil/uL Last Edit by ALOK Cid on 08/03/24 14:09 UA Specific [place] 1.020 Last Edit by ALOK Cid on 08/03/24 14: 09 UA Ketone Negative Last Edit by ALOK Cid on 08/03/24 14:09 UA Bilirubin 0 mg/dL Last Edit by ALOK Cid on 08/03/24 14:09 UA Glucose 0 mg/dL Last Edit by ALOK Cid on 08/03/24 14:09 Results Reviewed Results Reviewed: Laboratory Last Values Urine pH (Auto) 6.5 08/03/24 14:08 Specific [place] (Auto) 1.020 08/03/24 14:08 Urine Protein (Auto) 15 mg/dL 08/03/24 14:08 Glucose (UA)(Auto) 0 mg/dL 08/03/24 14:08 Urine Ketones (Auto) Negative 08/03/24 14:08 Urine Blood (Auto) 0 Jalil/uL 08/03/24 14:08 Urine Nitrite (Auto) Negative 08/03/24 14:08 Urine Bilirubin (Auto) 0 mg/dL 08/03/24 14:08 Urine Urobilinogen (Auto) 0.2 mg/dL 08/03/24 14:08 Leukocyte Esterase (Auto) 0 Jaurez/uL 08/03/24 14:08 Assessment & Plan Assessment & Plan (1) Stress incontinence: Code(s): N39.3 - Stress incontinence (female) (male) Category: Medical Plan In office urinalysis results reviewed with the patient today; as noted above. PVR 0 mL. Discussed at length potential causes for stress incontinence as well as further management to include pelvic floor therapy, medications, and urodynamics for further assessment and evaluation. Discussed bladder triggers/irritants. Discussed, educated, and stressed the importance of limiting/quitting nicotine dependence for overall health and well-being. Stop Myrbetriq Will schedule for in office urodynamics for further assessment and evaluation. Follow-up per doctor's orders; or sooner with any issues, concerns, and or questions. Orders: Orders AMB Urinalysis Automated Today Z13.9 - Encounter for screening, unspecified Patient Instructions: The patient had an opportunity to ask questions regarding the treatment plan. All questions were answered. Physical exam, labs, and imaging were discussed and reviewed in detail. As well as risks, benefits, and discussion of treatment choices. No major barriers to understanding were identified. The patient expressed understanding and agreement with the above treatment plan. The patient was made aware they should contact our office by phone for worsening of their current condition, the appearance of new symptoms, or with any questions or concerns. Compliance is encouraged with any medications and follow up testing that is ordered. It is a privilege to be allowed the opportunity to participate in? your urological care.? Again, if you have any questions or concerns If you have any questions or concerns please do not hesitate to contact me. The office is [phone]. This note is constructed using voice recognition software. While every effort has been made to ensure accuracy agricultural systems specialist errors may have been included. Yours sincerely, SHEKHAR Murphy Coding Level of Care Code Est Pt Level 3 (17926) Diagnoses Stress incontinence N39.3 CPT Codes Post Residual Void - PVR CPT Code: 78712-Gfxh Void Residual by ultrasound ([id number])
== END 2024-08-03 14:19 | disposition home or self-care (01) ==
PROVIDERS: PCP Family Medicine; Visit Provider Nurse Practitioner Family
DX: N39.3 Stress incontinence (female) (male) (principal); Z13.9 Encounter for screening, unspecified
CPT/HCPCS: 99213

== ENCOUNTER → 2024-08-03 13:48 | Outpatient (BNVA) | payer MEDICAID, SELFPAY | PROVIDERS: PCP Family Medicine; Visit Provider Nurse Practitioner Family | DX: N39.3 Stress incontinence (female) (male) (principal) | CPT/HCPCS: 51798; 81003; 99212 ==

== ENCOUNTER 2024-10-26 13:27 | Outpatient (AMB) | payer MEDICAID, SELFPAY ==
--- NOTE | 2024-10-26 13:36 | MHC.OFFVIS ---
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 Complaining of hot flashes. Last menstrual period were around 9 months ago Last Pap/HPV was negative in 08/13 Last Mammogram was BI-RADS 1 in 07/14 No previous screening colonoscopy PFSH Medical History History of anxiety Bleeding hemorrhoids Constipation Hemorrhoid Surgical History H/O hand surgery History of tubal ligation History of tonsillectomy Family History Father Hx of tongue cancer Mother Alive and well Social History Household Members: Family Housing: Apartment Are you a primary critical care transport nurse to a significant other at home: No Do you presently have visiting nurse or other home services: No Alcohol intake: never Patient Tobacco Use Status: Current everyday Tobacco user Tobacco use type: Cigarette Cigarette Packs Per Day: 4 Years Smoked: 20+ service: No Current occupational status: disabled Female Reproductive History Menstrual Age of Menarche: 14 control method: permanent sterilization Permanent Sterilization: BTL Total pregnancies: 4 Full term: 3 Number of Living Children: 3 Date of last pap smear: 07/30/22 (neg pap and hpv) Date of Mammogram: 07/06/24 Review of Systems Const All systems reviewed & are unremarkable except as noted in HPI and below Card Reports as per HPI Resp Reports as per HPI GI Reports as per HPI and Reports no additional complaints Reports as per HPI Physical Exam Vital Signs: Last Vital Signs BP 120/80 10/26/24 13:37 BMI result Body Mass Index 27.6 Const General: cooperative, healthy appearing and comfortable Chest Chest palpation & inspection: normal inspection of the chest and normal palpation of entire chest wall Breast/axilla inspection: normal inspection of the breasts and normal inspection of the axillae Breast/axilla palpation: normal palpation of the breasts, normal palpation of the axillae and no axillary lymphadenopathy Resp Effort & Inspection: normal respiratory effort Auscultation: clear to auscultation bilaterally Percussion: percussion normal Cardio Palpation: normal PMI Rate: regular rate Rhythm: regular rhythm Heart sounds: no murmurs and no rubs Peripheral pulses: Peripheral pulses 2+ throughout GI Inspection: Yes normal to inspection Palpation (GI): Soft to palpation, nontender, no guarding, not rigid and No hepatosplenomegaly present Percussion: Yes normal to percussion Auscultation: normal bowel sounds Rectal Exam - Female: deferred General: Yes bladder normal to palpation External Female Exam: No lesion Speculum Exam - Vagina: normal appearance of the vagina, normal palpation, normal vaginal discharge and not erythematous Speculum Exam - Cervix: normal appearance of the cervix and normal palpation Bimanual exam- vagina & uterus: normal bimanual exam, normal palpation, uterine size normal, bladder normal to palpation, consistency normal and normal palpation Bimanual Exam- Adnexa, other: normal adnexae, no masses and no tenderness Assessment & Plan Assessment & Plan (1) Well woman exam: Code(s): Z01.419 - Encounter for gynecological examination (general) (routine) without abnormal findings Category: Medical Plan: Cotesting not indicated this year. Instructions given the patient to schedule next screening Mammogram in 07/15. Counseled the patient about the recommended dietary allowance of 1000 mg of Calcium & 600 IU of vitamin D. GI referral for screening colonoscopy placed The patient was instructed to perform monthly self-breast exams and to schedule an annual exam in a year; All questions answered and the patient verbalized understanding. Instructed the patient to schedule annual exam in a year (2) Hot flashes: Code(s): R23.2 - [place] Category: Medical Plan: Discussed with the patient the options of treatment of hot flashes including hormonal replacement therapy, all the pros, cons, risks and benefits (benefits= prevention of hot flashes, atrophic vaginitis, osteoporosis, decrease colon ca risk; also discussed with the patient the risks of MA, Breast ca, DVT, PE, Strokes). In addition, discussed with the patient non hormonal treatment options for hot flashes treatment in surgical menopausal patient. Options discussed with the patient include the following: SSRI/SNRIs , difficulty has been demonstrated in multiple trials clinical response is more rapid (days) than typical response to SSRI for depression (weeks), they are equally effective in natural versus surgical menopause, they have similar modest benefit for hot flashes; will start the patient on Citalopram 20 mg per day for 30 days as a trial. Instructions given the patient to schedule a three-month follow-up appointment Orders: Referrals Gastroenterology Referral Z12.11 - Encounter for screening for malignant neoplasm of colon Medications: New citalopram 20 mg PO DAILY 90 days 90 tabs 0RF R23.2 - [place] Coding Level of Care Code Est Pt Level 3 (12832) Diagnoses Well woman exam Z01.419 Hot flashes R23.2
[2024-10-26 13:37] VITALS: BP 120/80; BMI 27.6
--- OUTSIDE RECORDS SUMMARY | 2024-10-26 15:59 | XMS_ITS | Encounter Summary ---
Author Organization [employer] [facility] Address [address] [place] [address] Care Team Providers Care Car Deliverer Name Role Phone Rosa Lebron MD Primary Care Provider [phone] Encounter Details Date Type Department Care Team (Late st Contact Info) Description 04/16/2023 Orders Only [facility] [address] [place], [place] [id number] Provider, MD Nano Social History Tobacco Use Types Packs/Day Years Used Date Smoking Tobacco: Every Day Cigarettes Passive Smoke Exposure: Never Smokeless Tobacco: Never Alcohol Use Standard Drinks/Week Comments Never 0 (1 standard drink = 0.6 oz pur e alcohol) Depression Answer Date Recorded Patient Health Questionnaire-9 Score 12 09/20/2022 Depression Answer Date Recorded Patient Health Questionnaire-2 Score 2 09/20/2022 Comments Unknown Sex and Gender Information Value Date Recorded Sex Assigned at Female 05/21/2022 10:30 AM EDT Legal Sex Female 10:30 AM EDT Gender Identity Female 05/21/2022 10:30 AM EDT Sexual Orientation Straight 05/21/2022 10 :30 AM EDT documented as of this encounter Plan of Treatment Upcoming Encounters Date Type Department Care Team (Late st Contact Info) Description 11/18/2024 11:00 AM EDT Office Visit [facility] [address] [place] [address] Kellie Yoder DMD 04/30/2025 1:00 PM EDT Office Visit [facility] [address] [place] [address] Marine Harrell documented as of this encounter Procedures Procedure Name Priority Date/Time Associated Diagnosis Comments HM PAP/HPV Routine 05/15/2021 documented in this encounter Results * Hm Pap Smear (05/15/2021) us Historical Provider HEALTH MAINTENANCE Final Result documented in this encounter Visit Diagnoses Not on filedocumented in this encounter Additional Health Concerns Assessment Noted Time PHQ-9 Depression Total Score: 12 09/20/ 023 2:24 PM EST documented as of this encounter Care Teams Car Deliverer Relationship Specialty Start Date End Date Rosa Lebron MD [address] [place] [address] PCP - General Family Medicine 03/22/21 Susan Yañez Consulting Physician Hematology and Oncology 07/09/24 Santos Mcleod Nurse Practitioner Urology 07/09/24 documented as of this encounter
--- OUTSIDE RECORDS SUMMARY | 2024-10-26 15:59 | XMS_ITS | Encounter Summary ---
Author Organization [employer] Address [address] [facility] [address] [place] [address] Care Team Providers Care Society Reporter Name Role Phone Rosa Lebron MD Primary Care Provider [phone] Reason for Visit * Reason Comments Care Coordination C3CM/RA Robertson reschedule assessment_lvm Encounter Details Date Type Department Care Team (Latest Contact Info) Description 10/23/2024 Patient Outreach [facility] [address] [place] [address] Rosa Lebron MD [address] [place] [address] Care Coordination (ALPESH/RA Le reschedule assessment_lvm ) Social History Tobacco Use Types Packs/Day Years Used Date Smoking Tobacco: Every Day Cigarettes Passive Smoke Exposure: Never Smokeless Tobacco: Never Alcohol Use Standard Drinks/Week Comments Never 0 (1 standard drink = 0.6 oz pur e alcohol) Depression Answer Date Recorded Patient Health Questionnaire-9 Score 24 05/13/2024 Patient Health Questionnaire-9 Score 24 05/13/2024 Last PHQ-9: Questionnaire Data Not on file 1 Housing Stability Answer Date Recorded What is your housing situation today? I have paco bal 10/02/[address] you li ve. Do you have problems with any of the following? None of the above 10/02/2024 Food Insecurity Answer Date Recorded Within the past 12 months, y ou worried that your food would run out before you got money to buy more: Never True 11/22/2023 Within the past 12 months,th e food you bought just didn't last and you didn't have enough money to get more: Never True 09/2023 Transportation Answer Date Recorded In the past 12 months, has l ack of transportation kept you from medical appts, meetings, work or from getting things needed for daily living? No 05/20/2023 Utilities Answer Date Recorded In the past 12 months, has t he electric, gas, oil or water company threatened to shut off services in your home? No 11/22/2023 Depression Answer Date Recorded Patient Health Questionnaire-2 Score 5 05/13/2024 Internet Access Answer Date Recorded Internet Access Q1 Yes 10/02/2024 Internet Access Q2 Not on file 10/02/2024 Comments Unknown Sex and Gender Information Value Date Recorded Sex Assigned at Female 05/21/2022 10:30 AM EDT Legal Sex Female 10:30 AM EDT Gender Identity Female 05/21/2022 10:30 AM EDT Sexual Orientation Straight 05/21/2022 10 :30 AM EDT documented as of this encounter Progress Notes * Keyur Del Real - 10/23/2024 8:58 AM EDT CHW Keyur Del Real placed outbound call to patient in regards to rescheduling missed initial assessment appointment on 10/19/24 for Adult Complex Care program services. No answer at this time. LVM introducing self from [facility] CM Department with name and direct contact number requesting call back. Will re-attempt to contact within 5 days. and address not confirmed. documented in this encounter Plan of Treatment Upcoming Encounters Date Type Department Care Team (Late st Contact Info) Description 11/18/2024 11:00 AM EDT Office Visit [facility] [address] [place] [address] Kellie Yoder DMD 04/30/2025 1:00 PM EDT Office Visit [facility] [address] [place] [address] Marine Harrell documented as of this encounter Visit Diagnoses Not on filedocumented in this encounter Additional Health Concerns Assessment Noted Time PHQ-9 Depression Total Score: 24 024 3:43 PM EDT documented as of this encounter Care Teams Society Reporter Relationship Specialty Start Date End Date Rosa Lebron MD [address] [place] [address] PCP - General Family Medicine 03/22/21 Susan Yañez Consulting Physician Hematology and Oncology 07/09/24 Santos Mcleod Nurse Practitioner Urology 07/09/24 documented as of this encounter
--- OUTSIDE RECORDS SUMMARY | 2024-10-26 15:59 | XMS_ITS | Encounter Summary ---
Author Organization [employer] Address [address] [place] [address] Care Team Providers Care Aged Or Disabled Care Worker Name Role Phone Rosa Lebron MD Primary Care Provider [phone] Reason for Visit * Reason Comments Routine Cleaning Dental Exam Encounter Details Date Type Department Care Team ([facility] st Contact Info) Description 10/26/2024 11:00 AM EDT Office Visit [facility] [address] [place] [address] Marine Harrell Social History Tobacco Use Types Packs/Day Years [...] AM EDT documented as of this encounter Last Filed Vital Signs Vital Sign Reading Time Taken Comments Blood Pressure 126/82 10/26/2024 10:51 AM EDT Pulse - - Temperature - - Respiratory Rate - - Oxygen Saturation - - Inhaled Oxygen Concentration - - Weight - - Height - - Body Mass Index - - documented in this encounter Plan of Treatment Upcoming Encounters Date Type Department Care Team (Late st Contact Info) Description 11/18/2024 11:00 AM EDT Office Visit [facility] [address] [place] [address] Kellie Yoder DMD 04/30/2025 1:00 PM EDT Office Visit [facility] [address] [place] [address] Marine Harrell Scheduled Orders Name Type Priority Associated Diagnoses Orde r Schedule 4 MO 4 MO RESIN-BASED COMPOSITE - 2 SURF, POSTERIOR Dental Routine [address] arting 10/26/2024 5 DO 5 DO RESIN-BASED COMPOSITE - 2 SURF, POSTERIOR Dental Routine [address] arting 10/26/2024 9 D 9 D RESIN-BASED COMPOSITE - 1 SURF, ANTERIOR Dental Routine [address] arting 10/26/2024 15 O 15 O RESIN-BASED COMPOSITE - 1 SURF, POSTERIOR Dental Routine [address] arting 10/26/2024 16 16 EXTRACTION, ERUPTED TOOTH OR EXPOSED ROOT (ELEVATION/FORCEPS REMOVAL) Dental Routine [address] arting 10/26/2024 14,2 14,2 MAXILLARY PARTIAL DENTURE - RESIN BASE (INCLUDING, RETENTIVE/CLASPING MATERIALS, RESTS, AND TEETH) Dental Routine [address] arting 10/26/2024 21 B(V) 21 B(V) RESIN-BASED COMPOSITE - 1 SURF, POSTERIOR Dental Routine 1 Occurrences starting 10/26/2024 31 O 31 O RESIN-BASED COMPOSITE - 1 SURF, POSTERIOR Dental Routine [address] arting 10/26/2024 PROPHYLAXIS - ADULT Dental Routine 1 Occ urrences starting 10/26/2024 10 D 10 D RESIN-BASED COMPOSITE - 1 SURF, ANTERIOR Dental Routine [address] arting 10/26/2024 18 B 18 B RESIN-BASED COMPOSITE - 1 SURF, POSTERIOR Dental Routine [address] arting 10/26/2024 19 B 19 B RESIN-BASED COMPOSITE - 1 SURF, POSTERIOR Dental Routine [address] arting 10/26/2024 27 F(V) 27 F(V) RESIN-BASED COMPOSITE - 1 SURF, ANTERIOR Dental Routine 1 Occurrences s tarting 10/26/2024 documented as of this encounter Procedures Procedure Name Priority Date/Time Associated Diagnosis Comments PROPHYLAXIS - ADULT Routine 10/26/2024 1 1:00 AM EDT ORAL HYGIENE INSTRUCTIONS Routine 2024 11:00 AM EDT INTRAORAL - PERIAPICAL FIRST RADIOGRAPHIC IMAGE Routine 10/26/2024 11:00 AM EDT INTRAORAL - PERIAPICAL EACH ADDITIONAL RADIOGRAPHIC IMAGE Routine 10/26/2024 11:00 AM EDT CASE PRESENTATION, DETAILED AND EXTENSIVE TREATMENT PLANNING Routine 10/26/2024 11:00 AM EDT BITEWINGS - 4 RADIOGRAPHIC IMAGES Routine 10/26/2024 11:00 AM EDT documented in this encounter Visit Diagnoses Not on filedocumented in this encounter Additional Health Concerns Assessment Noted Time PHQ-9 Depression Total Score: 24 024 3:43 PM EDT documented as of this encounter Care Teams Aged Or Disabled Care Worker Relationship Specialty Start Date End Date Rosa Lebron MD [address] [place] [address] PCP - General Family Medicine 03/22/21 Susan Yañez Consulting Physician Hematology and Oncology 07/09/24 Santos Mcleod Nurse Practitioner Urology 07/09/24 documented as of this encounter
--- OUTSIDE RECORDS SUMMARY | 2024-10-26 15:59 | XMS_ITS | Encounter Summary ---
Author Organization [employer] Address [address] [facility] [address] [place] [address] Care Team Providers Care Sales And Service Specialist Name Role Phone Rosa Lebron MD Primary Care Provider [phone] Encounter Details Date Type Department Care Team (Late st Contact Info) Description 10/12/[address] [facility] [address] [place] [address] Telma Hammond MD [address] [place] [address] Acute cough (Primary Dx) Social History Tobacco Use Types Packs/Day Years [...] 11:00 AM EDT Office Visit [facility] [address] [place] [address] Kellie Yoder DMD 04/30/2025 1:00 PM EDT Office Visit [facility] [address] [place] [address] Marine Harrell documented as of this encounter Visit Diagnoses Diagnosis Acute cough- Primary documented in this encounter Additional Health Concerns Assessment Noted Time PHQ-9 Depression Total Score: 24 024 3:43 PM EDT documented as of this encounter Care Teams Sales And Service Specialist Relationship Specialty Start Date End Date Rosa Lebron MD [address] [place] [address] PCP - General Family Medicine 03/22/21 Susan Yañez Consulting Physician Hematology and Oncology 07/09/24 Santos Mcleod Nurse Practitioner Urology 07/09/24 documented as of this encounter
--- OUTSIDE RECORDS SUMMARY | 2024-10-26 15:59 | XMS_ITS | Clinical Summary ---
Author Organization [employer] Address [address] [place] [address] Care Team Providers Care Tank House Supervisor Name Role Phone Rosa Lebron MD Primary Care Provider [phone] Allergies No known active allergies Medications ferrous gluconate (Fergon) 324 (38 Fe) MG tablet Take 1 tablet (324 mg) by mouth with breakfast. 90 tablet 1 4 Active amLODIPine (Norvasc) 10 MG tablet Take 1 tablet (10 mg) by mouth Once per day. 90 tablet 1 4 Active chlorhexidine (Peridex) 0.12 % solutionIndicat ions:Necrosis of dental pulp Swish 15 mL morning and night for 1 minute. Spit, do not swallow. Do not eat or drink for 30 minutes following use. 473 mL 4 Active Additional Information Patient not taking.Reported on 10/26/2024 ibuprofen 600 MG tabletIndicatio ns:Necrosis of dental pulp Take 1 tablet (600 mg) by mouth every 6 (six) hours if needed for mild pain for up to 20 doses. 20 tablet 4 Active SUMAtriptan (Imitrex) 50 MG tablet Take 1 tablet (50 mg) by mouth 1 (one) time if needed for migraine for up to 9 doses. May repeat dose once in 2 hours if no relief. Do not exceed 2 doses in 24 hours. 9 tablet 4 Active traZODone (Desyrel) 50 MG tablet Take 1 tablet (50 mg) by mouth at bedtime. 30 tablet 4 Active Additional Information Patient not taking.Reported on 10/26/2024 Myrbetriq 25 MG 24 hr tablet Take 25 mg by mouth Once per day. Active rosuvastatin (Crestor) 40 MG tablet Take 1 tablet (40 mg) by mouth Once per day. 90 tablet 1 Active nicotine (Nicoderm CQ) 7 MG/24HR patchIndication s:Smoking trying to quit Place 1 patch on the skin 1 (one) time each day at the same time. 30 patch 5 11/12/19 25 Active Additional Information Patient not taking.Reported on 10/26/2024 benzonatate (Tessalon Perles) 100 MG capsuleIndicati ons:Acute cough Take 1 capsule (100 mg) by mouth if needed in the morning, at noon, and at bedtime for cough for up to 7 days. Do not crush or chew. 20 capsule 5 10/27/19 25 Active guaiFENesin-dex tromethorphan (Robitussin DM) 100-10 MG/5ML syrupIndication s:Acute cough Take 5 mL by mouth every 4 (four) hours if needed for cough for up to 10 days. 118 mL 5 10/23/19 25 Active Problems Problem Noted Date Diagnosed Date Recurrent UTI 10/06/2024 Assessment & Plan (10/06/2024 5:00 PM EDT): I advised for her to finish her antibiotics she has 2 more days of cephalexin 500 mg 3 times a day, I also advised to drink plenty of water and do not hold the urine In light of recurrent UTIs I will put a referral in for urology Abnormal uterine bleeding 07/09/2024 Menopause 07/09/2024 Vasomotor symptoms due to menopause 07/09/2024 Assessment & Plan (07/09/2024 3:05 PM EST): Advised to follow up with Gynecology, referral to Bailey Borjas. Ordering lab work for further evaluation. Hyperlipidemia 07/09/2024 Assessment & Plan (07/09/2024 3:05 PM EST): Ordering lab work for further evaluation. Other specified anemias 12/02/2023 Pelvic pain 12/02/2023 Assessment & Plan (12/11/2023 9:53 AM EDT): Patient following with Dr. Encarnacion, he recently had EMBx done for her AUB. Lymphadenopathy of head and neck 11/07/2023 Assessment & Plan (11/07/2023 11:23 PM EDT): Ordered an US of Head and Neck in 3 months to reassess due to inflammation. If nodes are still inflamed and do not go away I will have to refer to ENT for further evaluation. Mixed stress and urge urinary incontinence 10/17 Assessment & Plan (07/09/2024 2:39 PM EST): Continues with stress incontinence, has helped urge incontinence. Currently on Mybetriq. Following with [facility]. She missed an appt with them. Assessment & Plan (10/19/2023 1:50 PM EDT): I will re-send referral to urology for further evaluation and management. Dysphagia 10/18/2023 Assessment & Plan (10/19/2023 1:48 PM EDT): Ordered Barium swallow to evaluate cause.We will F/U with results. Throat pain in adult 10/18/2023 Assessment & Plan (10/19/2023 1:49 PM EDT): For further investigation order US of Head/Neck area for dysphagia Acute non-recurrent maxillary sinusitis 09/19/19 24 Assessment & Plan (09/19/2023 11:12 AM EST): Fluids and rest Acetaminophen/ibuprofen PRN Augmentin prescribed Spasm of paraspinal muscle 09/05/2023 Assessment & Plan (09/05/2023 11:15 AM EST): I advised her to start exercise and to begin physical therapy to relieve pain and strengthen weakened muscles. I have ordered an Xrays of paraspinal, knees, and elbows. Depending on the results of imaging then I will determine if patient needs physical therapy referral. Chronic pain of both knees 09/05/2023 Medial epicondylitis of elbow, right 09/05/2023 Abdominal bloating 09/05/2023 Generalized gingival recession, moderate 024 Periodontal disease 07/10/2023 Dental calculus 07/10/2023 Insomnia 09/20/2022 Assessment & Plan (07/09/2024 2:51 PM EST): Patient was started on trazodone for sleep rx by Dr. Del Real, doing well. Reports effective Assessment & Plan (09/20/2022 5:45 PM EST): Patient with difficulties sleeping, reports did sleep ok last night but the increase in seroquel has not been helpful for sleep, but her mood has improved. At this moment will send ambien trial and f/u via telemedicine. She may be moving to [place], [place]. Anxiety 02/19/2022 Assessment & Plan (09/03/2022 9:57 PM EST): Patient with depressed mood, reports her therapist from [facility] is working on getting her a prescriber. She reports not sleeping, at this moment, will increase her seroquel to 150 mg and f/u via telemedicine in 2 weeks. Reports that she does not feel comfortable coming to [facility], she is considering switching to another facility, for now will f/u via telemedicine. Hypertensive disorder 02/19/2022 Assessment & Plan (10/06/2024 4:59 PM EDT): Today blood pressure is elevated, patient tells me she has not been taking her blood pressure medication for the past week because she recently moved and medication is 1 in one of the boxes, I advised for her to take her blood pressure medication as soon as she gets home and low-sodium diet, I also advised to log her blood pressure and presented when she follows up with her PCP Assessment & Plan (07/09/2024 3:06 PM EST): Continue on current medication and monitor BP at home. Ordering lab work for further evaluation. Follow up in 3 months. Assessment & Plan (12/02/2023 2:50 PM EDT): - If SBP < 130/DBP <80 mmHg in more than 75% of home self-monitoring, continue current medication regimen and make f/u with PCP in 3 month - If SBP >130-165/DBP >80-115 mmHg , add another agent, ARB losartan and f/u with PCP in 1 month - If SBP > 165/ DBP> 115 mmHg, consult with covering provider - If SBP <90/DBP <50 mmHg, consult with covering provider. Increasing dosage of Norvasc for better control of BP. Relevant Medication Amlodipine (Norvasc) 10 MG Tablet Assessment & Plan (10/19/2023 1:46 PM EDT): Controlled: Advised lifestyle modifications, including diet and exercise. Continue same treatment regimen. No medication adjustments at this time.. Assessment & Plan (09/28/2023 2:56 AM EST): Controlled. Slightly elevated but still within normal limits for her. Continue same treatment regimen. Assessment & Plan (09/05/2023 11:11 AM EST): Patient blood pressure is borderline but controlled/stable compared to past values. She hasn't been taking her medication. I have not prescribed her any medication at this time. Labs: Albumin, CBC, Comprehensive Metabolic Panel, Lipid Panel, TSH w/ Reflex to FT4 Immunizations:PCV-20 vaccine(today) Resolved Problems Problem Noted Date Diagnosed Date Resolved Date Stress incontinence in female 09/05/2023 07/09/2024 Assessment & Plan (09/28/2023 2:58 AM EST): Patient reports she feels abdominal bloating with some urine incontinence. I will refer to urology and order pelvic ultrasound. I will also prescribe her with pain medication for bladder inflammation. Assessment & Plan (09/05/2023 11:13 AM EST): Patient reports she feels abdominal bloating with some urine incontinence that we will address in a F/U appointment and I will also perform a pelvic exam. Future Appointments Date Time Provider Department Center 09/26/2023 1:30 PM Rosa Lebron MD [facility] MED [facility] Encounters Date Type Department Care Team Description 10/26/2024 11:00 AM EDT Office Visit [facility] [address] [place] [address] Marine Harrell 10/23/2024 Patient Outreach [facility] MEDICINE [address] [place] [phone] Rosa Lebron MD Care Coordination ([facility]/W RA Ziegler reschedule assessment_lvm ) 10/16/2024 Patient Outreach [facility] MEDICINE [address] [place] [address] Rosa Lebron MD Care Coordination (Outreach) 10/13/2024 1:30 PM EDT Office Visit [facility] OPTOMETRY [address] [place] [address] Jame, Lorri, OD Presbyopia (Primary Dx) 10/12/2024 11:15 AM EDT Office Visit [facility] & PEDS [address] [place] [address] Telma Hammond MD Urinary tract infection with hematuria, site unspecified (Primary Dx); Acute cough; Smoking trying to quit 10/12/2024 Orders Only [facility] MEDICINE [address] [place] [phone] Telma Hammond MD Acute cough (Primary Dx) 10/12/2024 Telephone [facility] [address], [place] [phone] Rosa Lebron MD Medication Question 10/12/2024 Travel 10/06/2024 1:40 PM EDT Office Visit [facility] WALK-IN CENTER [address] [place] [address] Rachele Zamora MD Recurrent UTI (Primary Dx); Primary hypertension 10/06/2024 Telephone [facility] [address] [place] [address] Rosa Lebron MD ER Follow-up 10/02/2024 Population Health Risk Score Community [facility] () Department [address] [place] [phone] Provider, Population Health Generic 10/02/2024 Patient Outreach [facility] [address] [place] [address] Rosa Lebron MD Care Coordination (Outreach) 09/02/2024 2:00 PM EST Office Visit [facility] OPTOMETRY [address] [place] [address] Jame, Lorri, OD Normal eye exam (Primary Dx); Presbyopia 09/02/2024 Travel 08/05/2024 Telephone [facility] MEDICINE [address] [place] [address] Soraya Johnson MA Internal Referral 07/29/2024 Telephone [facility] [address] [place], [place] [phone] Rosa Lebron MD Call Back Request from Last 3 Months Immunizations Name Administration Dates Next Due Hep B, adult 03/27/2022,,04/27/2016,03/27 Influenza Injectable Quadriv alant Preservative Free IIV4 MDCK 05/23/2022 Influenza injectable quadriv alent preservative free 04/26/2023,08/15/2016 Influenza, IIV3, injectable 07/10/2006 Influenza, seasonal, injecta ble, preservative free 05/26/2024 MMR 03/27/2022,02/05/2022 Moderna Covid-19 Vaccine 12+ 03/12/2022,02/13/20 22 Pneumococcal Conjugate PCV 20 09/05/2023 Pneumococcal Polysaccharide PPSV23 08/15/2016 Tdap 08/15/2015 Family History Medical History Relation Name Comments [place] Son Relation Name Status Comments Son Alive Social History Tobacco Use Types Packs/Day Years Used Date Smoking Tobacco: Every Day Cigarettes Passive Smoke Exposure: Never Smokeless Tobacco: Never Tobacco Cessation:Ready to Q uit: Not Asked; Counseling Given: Not Answered Alcohol Use Standard Drinks/Week Comments Never 0 [...] Orientation Straight 05/21/2022 10 :30 AM EDT Last Filed Vital Signs Vital Sign Reading Time Taken Comments Blood Pressure 126/82 10/26/2024 10:51 AM EDT Pulse 95 10/12/2024 11:30 AM EDT Temperature 36.7 ??C (98 ??F) 10/12/2024 11:30 AM EDT Respiratory Rate 20 10/12/2024 11:30 AM EDT Oxygen Saturation 99% 10/12/2024 11:30 AM EDT Inhaled Oxygen Concentration - - Weight 71.2 kg (157 lb) 10/12/2024 11:30 AM EDT Height 162.6 cm (5' 4 ) 10/12/2024 11:30 AM EDT Body Mass Index 26.95 10/12/2024 11:30 AM EDT Plan of Treatment Upcoming Encounters Date Type Department Care Team (Late st Contact Info) Description 11/18/2024 11:00 AM EDT Office Visit [facility] [address] [place] [address] Kellie Yoder DMD 04/30/2025 1:00 PM EDT Office Visit [facility] [address] [place] [address] Marine Harrell Health Maintenance Due Date Last Done Comments CT Colonography 1975 Colonoscopy 1975 FIT 1975 FOBT 1975 Sigmoidoscopy 1975 Family Planning (PISQ) 1992 Dental Oral Exam 11/30/2023 05/31/2023 COVID-19 Vaccine ( season) 2024 03/12/2022, 02/12/2022 Depression Monitoring (PHQ-9) 11/11/2024 05/13/2024, 05/13/2024 Dental Prophylaxis 04/28/2025 10/26/2024 Depression Screening 05/13/2025 05/13/2024, 05/13/20 24 Alcohol/Substance Use Screening 07/09/2025 07/09/2024 DTaP/Tdap/Td Vaccines (2 - Td or Tdap) 08/15/2025 08/15/2015 SDOH Screening 10/02/2025 10/02/2024 Tobacco Screening 10/26/2025 10/26/2024 Dental X-Ray: Bitewings 10/27/2025 10/27/19, 03/16/2024, 05/31/2023, Additional history exists Dental X-Ray: Full Mouth 06/01/2026 05/31/2023 Mammogram 07/06/2026 07/06/2024, 05/24/2023 Colorectal Cancer Screening 09/12/2026 FIT DNA/Cologuard 09/12/2026 09/12/2023 Zoster Vaccines (1 of 2) 2027 Cervical Cancer Screening 07/30/2027 HPV/Cotest 07/30/2027 07/30/2022, 05/15/2021 Pap Smear 07/30/2027 07/30/2022, 05/15/2021 Lipid Panel 07/27/2029 07/27/2024, 08/22, 06/12/2022, Additional history exists RSV Patients and Patients Aged 60 years or older (1 - 1-dose 75+ series) 2052 HIV Screening Completed 02/21/2022, 09/21/2021 Hepatitis C Screening Completed 02/21/2022, 022 Hepatitis B Vaccines Completed 03/27/2022, 02/05/2022, 04/27/2016, Additional history exists Pneumococcal Vaccine: Pediatrics (0 to 5 Years) and At-Risk Patients (6 to 49) Years) Completed 09/05/2023, 08/15/2016 Influenza Vaccine Completed 05/26/2024, , 05/23/2022, Additional history exists HIB Vaccines Aged Out No longer eligi ble based on patient's age to complete this topic HPV Vaccines Aged Out No longer eligi ble based on patient's age to complete this topic Hepatitis A Vaccines Aged Out No long er eligible based on patient's age to complete this topic IPV Vaccines Aged Out No longer eligi ble based on patient's age to complete this topic Meningococcal Vaccine Aged Out No carleen liseth eligible based on patient's age to complete this topic RSV under 20 months Aged Out No longe r eligible based on patient's age to complete this topic Rotavirus Vaccines Aged Out No longer eligible based on patient's age to complete this topic Procedures Procedure Name Priority Date/Time Associated Diagnosis Comments INTRAORAL - PERIAPICAL EACH ADDITIONAL RADIOGRAPHIC IMAGE Routine 10/26/2024 11:00 AM EDT INTRAORAL - PERIAPICAL FIRST RADIOGRAPHIC IMAGE Routine 10/26/2024 11:00 AM EDT BITEWINGS - 4 RADIOGRAPHIC IMAGES Routine 10/26/2024 11:00 AM EDT ORAL HYGIENE INSTRUCTIONS Routine 10/26/2024 11:00 AM EDT CASE PRESENTATION, DETAILED AND EXTENSIVE TREATMENT PLANNING Routine 10/26/2024 11:00 AM EDT PROPHYLAXIS - ADULT Routine 10/26/2024 1 1:00 AM EDT LIPID PANEL, STANDARD Routine 07/27/2024 11:56 AM EST Hyperlipidemia, unspecified hyperlipidemia type BI MAMMOGRAM SCREENING TOMOSYNTHESIS BILATERAL Routine 07/06/2024 12:38 PM EST LAB COLOGUARD?? COLON CANCER SCREEN Routine 09/12/2023 7:40 AM EST Colon cancer screening INTRAORAL - COMPLETE SERIES OF RADIOGRAPHIC IMAGES Routine 05/31/2023 9:00 AM EST COMPREHENSIVE ORAL EVALUATION - NEW OR ESTABLISHED PATIENT Routine 05/31/2023 9:00 AM EST HPV MRNA E6/E7 REFLEX TO HPV 16, 18/45 Routine 07/30/2022 2:13 PM EST PAP SMEAR Routine 07/30/2022 2:13 PM EST ZZZ HISTORICAL HEPATITIS C AB W/REFL TO HCV RNA, QN, PCR Routine 02/21/2022 10:32 AM EDT HIV 1/2 ANTIGEN/ANTIBODY, FOURTH GENERATION W/RFL Routine 02/21/2022 10:32 AM EDT from Last 3 Months or Most Recently Relevant to Health Maintenance Results * (ABNORMAL) Lipid Panel, Standard (07/27/2024 11:56 AM EST) Triglycerides 210(H) <150 mg/dL [facility] Comment:Desirable Triglyceri de: less than 150 mg/dLBorderline High Triglyceride 150-199 mg/dLHigh Triglyceride: 200-499 mg/dLVery High Triglyceride: greater than or equal to 5OO mg/dL Cholesterol 236(H) <200 mg/dL [facility] Comment:Desirable Cholestero l: less than 200 mg/dLBorderline High Cholesterol: 200-239 mg/dLHigh Cholesterol: greater than 239 mg/dL LDL Cholesterol Calculated 155(H) <100 mg/dL [facility] Comment:Desirable LDL: less than 100 mg/dLNear Optimal/Above Optimal LDL: 110- 129 mg/dLBorderline High LDL: 130-159 mg/dLHigh LDL: 160-189 mg/dLVery High LDL: greater than or equal to 190 mg/dL HDL Cholesterol 39(L) >40 mg/dL [facility] Comment:Desirable HDL: great er than 40 mg/dL Note: This HDL assay may give artificially low results in patients with liver disease. Blood Venous blood specimen / Unknown 07/27/2024 11:56 AM EST 07/27/2024 11:56 AM EST us Rosa Lebron MD LAB BLOOD ORDERABLES Final Re sult Performing Organization Address [facility]/State/ZIP Co de Phone Number [facility] [address] [facility] [place] [address] [phone] * BI Mammogram Screening Tomosynthesis Bilateral (07/06/2024 12:38 PM EST) Anatomical Region Laterality Modality Breast Bilateral Mammography 07/06/2024 12:3 8 PM EST Narrative 07/16/2024 11:22 AM EST ? [facility] ? [address] ?[place] [address] ? Mammography Report ? Signed ? Patient: Dino,Arely ?MR#: [id number] ? : 1975 ?Acct:[id number] ? Age/Sex: 49 / F ?ADM Date: 07/06/24 ? Loc: HO.MAMMO ? Attending Dr: Rosa Lebron MD ? Ordering Physician: Rosa Lebron MD ?Results: 1Nega ?? tive ? Date of Service: 07/06/24 ?Follow Up: 1 Year From Orig ?? inal Mammogram ? Procedure(s): MM tomosynthesis screening BI ?? Accession Number(s): [id number] ? cc: Rosa Lebron MD ? EXAMINATION: ?? MM SCREENING DIGITAL BREAST TOMOSYNTHESIS, BILATERAL ? CLINICAL INFORMATION: ? Screening. Asymptomatic. ? COMPARISON: ?? Mammography: Comparison is made with available priors ? TECHNIQUE: ?? Digital breast mammography with tomosynthesis is performed in both the ?? craniocaudal and mediolateral oblique views along with computer-aided ?? detection (CAD). ? FINDINGS: ?? The breasts are heterogeneously dense, which may obscure small masses ?? (ACR BI-RADS breast composition Category c). ? There are no significant masses, abnormal calcifications, or other ?? abnormalities. ? MM/MM tomosynthesis screening BI ?? IMPRESSION: ?? No mammographic evidence of malignancy. ? ASSESSMENT: ? BI-RADS BI-RADS 1 - Negative ? RECOMMENDATION: ?? Routine annual mammography screening. ? 1 year F/U ? This examination should not preclude the clinical evaluation of a ?? suspicious palpable abnormality. ? This patient's information was entered into a reminder system with a ?? target due date for their next mammogram. ? Electronically signed by: ??Ileana Dunne DO ??07/16/2024 11:19 AM EST ? Dictated By: ?Ileana Dunne DO ? Signed By: ?<Electronically signed by Ileana Dunne, DO in OV> ? 07/16/24 1119 ? DD/ 1238 ? TD/TT: 07/06/24 1255 ? Fountain Manager: ? Procedure Note Prosperter, Image - 07/16/2024 [facility] [address] [place] [address] [place] [address] Mammography Report Signed Patient: Jesus Sun#: [id number] : 1975Acct:[id number] Age/Sex: 49 / FADM Date: 07/06/24 Loc: HO.MAMMO Attending Dr: Rosa Lebron MD Ordering Physician: Rosa Lebronesults: 1Nega tive Date of Service: 07/06/24Follow Up: 1 Year From [facility]a Mammogram Procedure(s): MM tomosynthesis screening BI Accession Number(s): [id number] cc: Rosa Lebron MD EXAMINATION: MM SCREENING DIGITAL BREAST TOMOSYNTHESIS, BILATERAL CLINICAL INFORMATION: Screening. Asymptomatic. COMPARISON: Mammography: Comparison is made with available priors TECHNIQUE: Digital breast mammography with tomosynthesis is performed in both the craniocaudal and mediolateral oblique views along with computer-aided detection (CAD). FINDINGS: The breasts are heterogeneously dense, which may obscure small masses (ACR BI-RADS breast composition Category c). There are no significant masses, abnormal calcifications, or other abnormalities. MM/MM tomosynthesis screening BI IMPRESSION: No mammographic evidence of malignancy. ASSESSMENT: BI-RADS BI-RADS 1 - Negative RECOMMENDATION: Routine annual mammography screening. 1 year F/U This examination should not preclude the clinical evaluation of a suspicious palpable abnormality. This patient's information was entered into a reminder system with a target due date for their next mammogram. Electronically signed by: Ileana Dunne DO 07/16/2024 11:19 AM EST Dictated By: Ileana Dunne DO Signed By: <Electronically signed by Ileana Dunne DO in OV> 07/16/24 1119 DD/ 1238 TD/TT: 07/06/24 1255 Fountain Manager: us Rosa Lebron MD [facility] BI PROCEDURES Final Resul t * Cologuard?? colon cancer screening (09/12/2023 7:40 AM EST) Cologuard Result Negative Negative 09/20/19 1:22 AM EST [employer] (CLIA #:[id number]) Comment: NEGATIVE TEST RESULT. A negative Cologuard result indicates a low likelihood that a colorectal cancer (CRC) or advanced adenoma (adenomatous polyps with more advanced pre-malignant features) ??is present. The chance that a person with a negative Cologuard test has a colorectal cancer is less than 1 in 1500 (negative predictive value >99.9%) or has an ??advanced adenoma is less than ??5.3% (negative predictive value 94.7%). These data are based on a prospective cross-sectional study of 10,000 individuals at average risk for colorectal cancer who were screened with both Cologuard and colonoscopy. (Sharon Olvera al, N Engl J Med 2014;370(14):1286- 1297) The normal value (reference range) for this assay is negative. COLOGUARD RE-SCREENING RECOMMENDATION: Periodic colorectal cancer screening is an important part of preventive healthcare for asymptomatic individuals at average risk for colorectal cancer. ??Following a negative Cologuard result, the [place] [employer] and U.S. Multi-Society Task Force screening guidelines recommend a Cologuard re-screening interval of 3 years. References: [place] [employer] Guideline for Colorectal Cancer Screening: https://www.cancer.org/cancer/rdnjd-rlfymt-zxytuw/twnjtqzwp-zdnlndjhg-sbldgwe/ac s-rec ommendations.html.; Yomi DK, Christine REID, Delores SpringerK, Colorectal Cancer Screening: Recommendations for Physicians and Patients from the U.S. Multi-Society Task Force on Colorectal Cancer Screening , Am J Gastroenterology 2017; 112:1301-4488. TEST DESCRIPTION: Composite algorithmic analysis of stool DNA-biomarkers with hemoglobin immunoassay. ?? Quantitative values of individual biomarkers are not reportable and are not associated with individual biomarker result reference ranges. Cologuard is intended for colorectal cancer screening of adults of either sex, 45 years or older, who are at average-risk for colorectal cancer (CRC). Cologuard has been approved for use by the U.S. FDA. The performance of Cologuard was established in a cross sectional study of average-risk adults aged 50-84. Cologuard performance in patients ages 45 to 49 years was estimated by sub-group analysis of near-age groups. Colonoscopies performed for a positive result may find as the most clinically significant lesion: colorectal cancer [4.0%], advanced adenoma (including sessile serrated polyps greater than or equal to 1cm diameter) [20%] or non- advanced adenoma [31%]; or no colorectal neoplasia [45%]. These estimates are derived from a prospective cross-sectional screening study of 10,000 individuals at average risk for colorectal cancer who were screened with both Cologuard and colonoscopy. (Sharon Olvera al, N Engl J Med 2014;370(14):2766-3955.) Cologuard may produce a false negative or false positive result (no colorectal cancer or precancerous polyp present at colonoscopy follow up). A negative Cologuard test result does not guarantee the absence of CRC or advanced adenoma (pre-cancer). The current Cologuard screening interval is every 3 years. ([place] [employer] and U.S. Multi-Society Task Force). Cologuard performance data in a 10,000 patient pivotal study using colonoscopy as the reference method can be accessed at the following location: [email or web address].Associa/results. Additional description of the Cologuard test process, warnings and precautions can be found at [email or web address]. Stool specimen (specimen) 09/12/2023 7:40 AM EST 09/13/2023 11:11 AM EST us Rosa Lebron MD LAB MOLECULAR DIAGNOSTICS ORD ERABLES Final Result [employer] (CLIA #:[id number]) [place] [address], * HPV mRNA E6/E7 w/Reflex to HPV Genotypes 16, 18/45 (07/30/2022 2:13 PM EST) HPV nRNA E6/E7 Not Detected Not Detected [facility] Comment:Methodology: Transcr iption-Mediated AmplificationThis assay detects E6/E7 viral messenger RNA (mRNA) from 14high-risk HPV types (16,18,31,33,35,39,45,51,52,56,58,59,66,68).Cervical sources are required for HPV testing.If a vaginal source from a patient who has had atotal hysterectomy with removal of cervix wassubmitted, please contact the testing laboratoryfor alternative testing options.For additional information, please refer tohttp://education.Best Learning English/faq/GMR106o8(This link if provided for information/educational purposes only.)THIS TEST WAS PERFORMED AT:[facility] [place] [address] STREET (NL1)[place] [address]LRCVHKEARA VASQUEZ MD HPV mRNA E6/E7 TNP [facility] HPV 16 RNA TNP [facility] HPV 18/45 RNA TNP [facility] 07/30/2022 2:13 PM EST 07/30/2022 4:30 PM EST us [facility] External Provider LAB CYT OLOGY ORDERABLES Final Result [facility] [address] [place] [address] [phone] * Pap Smear (07/30/2022 2:13 PM EST) 07/30/2022 2:13 PM EST 07/30/2022 4:30 PM EST Narrative [facility] - 08/06/2022 1:00 PM EST ----- ------- Name: Arely Sun ? Age/Sex: 47/F ? : 1975 Unit#: [id number] ?? Attend Dr: Shital Hummel CNM ?Re07/30/22 ?Status: DEP REF ? Location: HO.LNP ?Disch: ? ----- ------- SPEC : [id number] ?RECD: 07/30/22 ? STATUS: ??SOUT ? REQ NUM: [id number] ? SALVADOR: 07/30/22 ? SUBM DR: Shital Hummel CNDeedee ? ENTERED: ??07/30/22 ?SP TYPE: Pap Smr ?OTHR DR: Rosa Lebron MD ? ORDERED: ??Pap Smear ? Interpretation ?? Satisfactory for evaluation. ?? Negative for intraepithelial lesion or malignancy. ?? Coccobacilli consistent with shift in vaginal ghassan. ? HPV mRNA E6/E7: ?NOT DETECTED ? This assay detects E6/E7 viral messenger RNA (mRNA) from 14 high-risk HPV types (16, 18, ?? 31, 33, 35, 39, 45, 51, 52, 56, 58, 59, 66, 68) ? HPV testing performed by [employer], [place], [place]. ??See reference laboratory ?? portion of the EMR for entire report. ?Clinical Information LMP: Not sure Previous PAP test: 06/27/21, WNL ? Material Received ?? ThinPrep-Cervical Copies To: ?? Shital Hummel CNM ?? [address] [place] [facility] ?? [place] [address] ?? [phone] ?? Rosa Lebron MD ?? [address] [facility] ?? [place] ?? [phone] ----- ------- Signed (signature on file) Rosa Abel Romaine 08/06/22 1300 ? ----- ------- ? END OF REPORT ? us [facility] External Provider LAB CYT OLOGY ORDERABLES Final Result [facility] [address] [place] [address] [phone] * HEPATITIS C AB W/REFL TO HCV RNA, QN, PCR (02/21/2022 10:32 AM EDT) HEPATITIS C ANTIBODY NON-REACT LA NON-REACT LA [facility] INDEX 0.11 <1.00 [facility] Comment: ?? HCV antibody was non-reactive. There is no laboratory ?? evidence of HCV infection. ?? In most cases, no further action is required. However, if recent HCV exposure is suspected, a test for HCV RNA (test code 88426) is suggested. ?? For additional information please refer to http://[employer].Best Learning English/faq/OLL98b4 (This link is being provided for informational/ educational purposes only.) ?? 02/21/2022 10:3 2 AM EDT Rosa Lebron MD HISTORICAL/NON ORDERABLE LABS Final Result Performing Organization Address [facility] de Phone Number [facility] [address] * HIV 1/2 ANTIGEN/ANTIBODY,FOURTH GENERATION W/RFL (02/21/2022 10:32 AM EDT) HIV-1/2 ANTIGEN AND ANTIBODIES, 4TH GENERATION W/ REFLEX NON-REACT LA NON-REACT LA [facility] Comment: HIV-1 antigen and HIV-1/HIV-2 antibodies were not detected. There is no laboratory evidence of HIV infection. ?? PLEASE NOTE: This information has been disclosed to you from records whose confidentiality may be protected by state law. ??If your state requires such protection, then the state law prohibits you from making any further disclosure of the information without the specific written consent of the person to whom it pertains, or as otherwise permitted by law. A general authorization for the release of medical or other information is NOT sufficient for this purpose. ? For additional information please refer to http://[employer].Best Learning English/faq/ITL801 (This link is being provided for informational/ educational purposes only.) ? The performance of this assay has not been clinically validated in patients less than 2 years old. ?? 02/21/2022 10:3 2 AM EDT Rosa Lebron MD LAB BLOOD ORDERABLES Final Re sult Performing Organization Address [facility]/ZIP Co de Phone Number [facility] [address] from Last 3 Months or Most Recently Relevant to Health Maintenance Insurance [facility] C3 DENTAL-[facility] MEDICAID STAND ADULT Care Teams Tank House Supervisor Relationship Specialty Start Date End Date Rosa Lebron MD [address] [place] [address] PCP - General Family Medicine 03/22/21 Susan Yañez Consulting Physician Hematology and Oncology 07/09/24 Santos Mcleod Nurse Practitioner Urology 07/09/24
--- OUTSIDE RECORDS SUMMARY | 2024-10-26 15:59 | XMS_ITS | Encounter Summary ---
Author Organization [employer] Address [address] [facility] [address] [place] [address] Care Team Providers Care Hemmer Automatic Name Role Phone Rosa Lebron MD Primary Care Provider [phone] Encounter Details Date Type Department Care Team (Late st Contact Info) Description 06/07/2023 Abstract [facility] ADULT DENTAL [address] [place], [place] [phone] Nagi Conway DDS [address], [place] [phone] Social History Tobacco Use Types Packs/Day Years Used Date Smoking Tobacco: Every Day Cigarettes Passive Smoke Exposure: Never Smokeless Tobacco: Never Alcohol Use Standard Drinks/Week Comments Never 0 (1 standard drink = 0.6 oz pur e alcohol) Depression Answer Date Recorded Patient Health Questionnaire-9 Score 12 09/20/2022 Housing Stability Answer Date Recorded What is your housing situation today? I have paco bal 05/20/[address] you li ve. Do you have problems with any of the following? None of the above 05/20/2023 Food Insecurity Answer Date Recorded Within the past 12 months, y ou worried that your food would run out before you got money to buy more: Never True 05/20/2023 Within the past 12 months,th e food you bought just didn't last and you didn't have enough money to get more: Never True Transportation Answer Date Recorded In the past 12 months, has l ack of transportation kept you from medical appts, meetings, work or from getting things needed for daily living? No 05/20/2023 Utilities Answer Date Recorded In the past 12 months, has t he electric, gas, oil or water company threatened to shut off services in your home? No 05/20/2023 Depression Answer Date Recorded Patient Health Questionnaire-2 [...] Description 11/18/2024 11:00 AM EDT Office Visit [facility] ADULT DENTAL [address] [place] [address] Kellie Yoder DMD 04/30/2025 1:00 PM EDT Office Visit [facility] ADULT D[facility] [address] [place] [address] Marine Harrell documented as of this encounter Visit Diagnoses Not on filedocumented in this encounter Additional Health Concerns Assessment Noted Time PHQ-9 Depression Total Score: 12 023 2:24 PM EST documented as of this encounter Care Teams Hemmer Automatic Relationship Specialty Start Date End Date Rosa Lebron MD [address] [place] [address] PCP - General Family Medicine 03/22/21 Susan Yañez Consulting Physician Hematology and Oncology 07/09/24 Santos Mcleod Nurse Practitioner Urology 07/09/24 documented as of this encounter
--- OUTSIDE RECORDS SUMMARY | 2024-10-26 15:59 | XMS_ITS | Encounter Summary ---
Author Organization [employer] Address [address] [facility] 7t [place] [address] Care Team Providers Care Technical Specialist Cytogenetics Name Role Phone Rosa Lebron MD Primary Care Provider [phone] Reason for Visit * Reason Comments Med Refill Encounter Details Date Type Department Care Team ([facility] Contact Info) Description 12/06/2023 Refill [facility] CHC MED & PEDS [address] [place] [address] Rosa Lebron MD [address] [place] [address] Social History Tobacco Use Types Packs/Day Years Used Date Smoking Tobacco: Every Day Cigarettes Passive Smoke Exposure: Never Smokeless Tobacco: Never Alcohol Use Standard Drinks/Week Comments Never 0 (1 standard drink = 0.6 oz pur e alcohol) Depression Answer Date Recorded Patient Health Questionnaire-9 Score 12 09/20/2022 Housing Stability Answer Date Recorded What is your housing situation today? I have paco bal 11/22/[address] you li ve. Do you have problems with any of the following? Pests such as bugs, ants, or mice 11/22/2023 Food Insecurity Answer Date Recorded Within the [...] Description 11/18/2024 11:00 AM EDT Office Visit [facility] ADULT DENTAL [address] [place] [address] Kellie Yoder DMD 04/30/2025 1:00 PM EDT Office Visit [facility] [address] [place] [address] Marine Harrell documented as of this encounter Visit Diagnoses Not on filedocumented in this encounter Additional Health Concerns Assessment Noted Time PHQ-9 Depression Total Score: 12 023 2:24 PM EST documented as of this encounter Care Teams Technical Specialist Cytogenetics Relationship Specialty Start Date End Date Rosa Lebron MD [address] [place] [address] PCP - General Family Medicine 03/22/21 Susan Yañez Consulting Physician Hematology and Oncology 07/09/24 Santos Mcleod Nurse Practitioner Urology 07/09/24 documented as of this encounter
== END 2024-10-26 14:20 | disposition home or self-care (01) ==
LOC: HO.HWS 13:27
PROVIDERS: PCP Family Medicine; Visit Provider Obstetrics & Gynecology
DX: Z01.419 Encounter for gynecological examination (general) (routine) without abnormal findings (principal); R23.2 Flushing
CPT/HCPCS: 99213

== ENCOUNTER → 2024-10-26 13:27 | Outpatient (BNVA) | payer MEDICAID, SELFPAY | PROVIDERS: PCP Family Medicine; Visit Provider Obstetrics & Gynecology | DX: Z01.419 Encounter for gynecological examination (general) (routine) without abnormal findings (principal); R23.2 Flushing | CPT/HCPCS: 99212 ==

== ENCOUNTER 2024-10-30 09:37 | Outpatient (REF) | payer MEDICAID, SELFPAY ==
--- OUTSIDE RECORDS SUMMARY | 2024-10-30 10:07 | XMS_ITS | Encounter Summary ---
Author Organization [employer] Address [address] [facility] [address] [place] [address] Care Team Providers Care Repair Supervisor Name Role Phone Rosa Lebron MD Primary Care Provider [phone] Encounter Details Date Type Department Care Team (Late st Contact Info) Description 06/07/2023 Abstract [facility] ADULT DENTAL [address] [place], [place] [phone] Nagi Conway DDS [address] [place], [place] [phone] Social History Tobacco Use Types Packs/Day Years [...] Description 11/18/2024 11:00 AM EDT Office Visit [facility] ADULT DENTAL [address] [place] [address] Kellie Yoder DMD 04/30/2025 1:00 PM EDT Office Visit [facility] ADULT DENTAL [address] [place] [address] Marine Harrell documented as of this encounter Visit Diagnoses Not on filedocumented in this encounter Additional Health Concerns Assessment Noted Time PHQ-9 Depression Total Score: 12 023 2:24 PM EST documented as of this encounter Care Teams Repair Supervisor Relationship Specialty Start Date End Date Rosa Lebron MD [address] [place] [address] PCP - General Family Medicine 03/22/21 Susan Yañez Consulting Physician Hematology and Oncology 07/09/24 Santos Mcleod Nurse Practitioner Urology 07/09/24 documented as of this encounter
--- OUTSIDE RECORDS SUMMARY | 2024-10-30 10:07 | XMS_ITS | Encounter Summary ---
Author Organization [employer] [facility] Address [address] [facility] [address]t [place] [address] Care Team Providers Care Watch Dial Printer Name Role Phone Rosa Lebron MD Primary Care Provider [phone] Encounter Details Date Type Department Care Team (Late st Contact Info) Description 04/16/2023 Orders Only [facility] [address] [place], [place] [phone] Provider, MD Nano Social History Tobacco Use [...] Description 11/18/2024 11:00 AM EDT Office Visit [facility] ADULT DENTAL [address] [place] [address] Kellie Yoder DMD 04/30/2025 1:00 PM EDT Office Visit [facility] ADULT DENTAL [address] [place] [address] Marine Harrell documented as of this encounter [...] documented as of this encounter Care Teams Watch Dial Printer Relationship Specialty Start Date End Date Rosa Lebron MD [address] [place] [address] PCP - General Family Medicine 03/22/21 Susan Yañez Consulting Physician Hematology and Oncology 07/09/24 Santos Mcleod Nurse Practitioner Urology 07/09/24 documented as of this encounter
--- OUTSIDE RECORDS SUMMARY | 2024-10-30 10:07 | XMS_ITS | Encounter Summary ---
Author Organization [employer] Address [address] [facility] [address] [place] [address] Care Team Providers Care Leather Toggler Name Role Phone Rosa Lebron MD Primary Care Provider [phone] Reason for Visit * Reason Comments Med Refill Encounter Details Date Type Department Care Team ([facility] Contact Info) Description 12/06/2023 Refill [facility] CHC MED & PEDS [address] [place] [address] Rosa Lebron MD [address] [place] [address] Social History Tobacco Use Types Packs/Day Years [...] 11:00 AM EDT Office Visit [facility] ADULT DENTAL [address] [place] [address] Kellie Yoder DMD 04/30/2025 1:00 PM EDT Office Visit [facility] ADULT DENTAL [address] [place] [address] Marine Harrell documented as of this encounter Visit Diagnoses Not on filedocumented in this encounter Additional Health Concerns Assessment Noted Time PHQ-9 Depression Total Score: 12 023 2:24 PM EST documented as of this encounter Care Teams Leather Toggler Relationship Specialty Start Date End Date Rosa Lebron MD [address] [place] [address] PCP - General Family Medicine 03/22/21 Susan Yañez Consulting Physician Hematology and Oncology 07/09/24 Santos Mcleod Nurse Practitioner Urology 07/09/24 documented as of this encounter
--- OUTSIDE RECORDS SUMMARY | 2024-10-30 10:07 | XMS_ITS | Clinical Summary ---
Author Organization [employer] Address [address] [facility] 7t [place] [address] Care Team Providers Care Forge Helper Name Role Phone Rosa Lebron MD Primary Care Provider [phone] Allergies No known active allergies Medications ferrous [...] or chew. 20 capsule 5 10/27/19 25 guaiFENesin-dex tromethorphan (Robitussin DM) 100-10 MG/5ML syrupIndication [...] for dysphagia Acute non-recurrent maxillary sinusitis 09/19/19 Assessment & Plan (09/19/2023 11:12 AM EST): [...] via telemedicine. She may be moving to [place], [place]. Anxiety 02/19/2022 Assessment & Plan (09/03/2022 9:57 PM EST): Patient with depressed mood, reports her therapist from [facility] is working on getting her a prescriber. She reports not sleeping, at this moment, will increase her seroquel to 150 mg and f/u via telemedicine in 2 weeks. Reports that she does not feel comfortable coming to [facility], she is considering switching to another [...] Center 09/26/2023 1:30 PM Rosa Lebron MD [facility] MED [facility] Encounters Date Type Department Care Team Description 10/26/2024 11:00 AM EDT Office Visit [facility] ADULT DENTAL [address] [place] [address] Marine Harrell 10/23/2024 Patient Outreach [facility] MEDICINE [address] [place] [phone] Rosa Lebron MD Care Coordination ([facility]/W RA Ziegler reschedule assessment_lvm ) 10/16/2024 Patient Outreach [facility] MEDICINE [address] [place] [address] Rosa Lebron MD Care Coordination (Outreach) 10/13/2024 1:30 PM EDT Office Visit [facility] OPTOMETRY [address] [place] [address] Jame, Lorri, OD Presbyopia (Primary Dx) 10/12/2024 11:15 AM EDT Office Visit [facility] MED & PEDS [address] [place] [address] Telma Hammond MD Urinary tract infection with hematuria, site unspecified (Primary Dx); Acute cough; Smoking trying to quit 10/12/2024 Orders Only [facility] MEDICINE [address] [place] [phone] Telma Hammond MD Acute cough (Primary Dx) 10/12/2024 Telephone [facility] [address] [place], [place] [address] Rosa Lebron MD Medication Question 10/12/2024 Travel 10/06/2024 1:40 PM EDT Office Visit [facility] WALK[facility]IN CENTER [address] [place] [address] Rachele Zamora MD Recurrent UTI (Primary Dx); Primary hypertension 10/06/2024 Telephone [facility] [address] [place] [address] Rosa Lebron MD ER Follow-up 10/02/2024 Population Health Risk Score [facility] () Department [address] [place] [phone] Provider, Population Health Generic 10/02/2024 Patient Outreach [facility] PEDS [address] [place] [address] Rosa Lebron MD Care Coordination (Outreach) 09/02/2024 2:00 PM EST Office Visit [facility] OPTOMETRY [address] [place] [address] Jame, Lorri, OD Normal eye exam (Primary Dx); Presbyopia 09/02/2024 Travel 08/05/2024 Telephone [facility] MEDICINE [address] [place] [address] Soraya Johnson MA Internal Referral from Last 3 Months Immunizations Name Administration [...] your housing situation today? I have paco valeriano 10/02/[address] you li [...] Description 11/18/2024 11:00 AM EDT Office Visit [facility] ADULT D[facility] [address] [place] [address] Kellie Yoder DMD 04/30/2025 1:00 PM EDT Office Visit [facility] ADULT D[facility] [address] [place] [address] Marine Harrell Health Maintenance Due Date Last Done Comments CT Colonography 1975 Colonoscopy 1975 FIT 1975 FOBT 1975 Sigmoidoscopy 1975 Family Planning (PISQ) 1992 COVID-19 Vaccine ( season) 2024 03/12/2022, 02/12/2022 Depression Monitoring 11/11/2024 05/13/2024, 024 Dental Oral Exam 04/28/2025 10/26/2024, 05/31/2023 Dental Prophylaxis 04/28/2025 10/26/2024 Depression Screening 05/13/2025 [...] Procedure Name Priority Date/Time Associated Diagnosis Comments PERIODIC ORAL EVALUATION - ESTABLISHED PATIENT Routine 10/26/2024 11:00 AM EDT COMPREHENSIVE PERIODONTAL EVALUATION - NEW OR ESTABLISHED PATIENT Routine 10/26/2024 11:00 AM EDT INTRAORAL - [...] RADIOGRAPHIC IMAGES Routine 05/31/2023 9:00 AM EST HPV MRNA [...] 11:56 AM EST) Triglycerides 210(H) <150 mg/dL [facility] Comment:Desirable Triglyceri de: less than 150 mg/dLBorderline High Triglyceride 150-199 mg/dLHigh Triglyceride: 200-499 mg/dLVery High Triglyceride: greater than or equal to 5OO mg/dL Cholesterol 236(H) <200 mg/dL [facility] Comment:Desirable Cholestero l: less than 200 mg/dLBorderline High Cholesterol: 200-239 mg/dLHigh Cholesterol: greater than 239 mg/dL LDL Cholesterol Calculated 155(H) <100 mg/dL [facility] Comment:Desirable LDL: less than 100 mg/dLNear Optimal/Above Optimal LDL: 110- 129 mg/dLBorderline High LDL: 130-159 mg/dLHigh LDL: 160-189 mg/dLVery High LDL: greater than or equal to 190 mg/dL HDL Cholesterol 39(L) >40 mg/dL [facility] Comment:Desirable HDL: great er than 40 mg/dL Note: This HDL assay may give artificially low results in patients with liver disease. Blood Venous blood specimen / Unknown 07/27/2024 11:56 AM EST 07/27/2024 11:56 AM EST us Rosa Lebron MD LAB BLOOD ORDERABLES Final Re sult [facility] [address] [place] [address] [phone] * BI Mammogram Screening Tomosynthesis Bilateral (07/06/2024 12:38 PM EST) Anatomical Region Laterality Modality Breast Bilateral Mammography 07/06/2024 12:3 8 PM EST Narrative 07/16/2024 11:22 AM EST ? [facility] [place] ? [address] ?[place] [address] ? Mammography Report ? Signed ? Patient: Dino,Arely ?MR#: [id number] ? : 1975 ?Acct:[id number] ? Age/Sex: 49 / F ?ADM Date: 07/06/24 ? Loc: HO.MAMMO ? Attending Dr: Rosa Lebron MD ? Ordering Physician: Rosa Lebron MD ?Results: 1Nega ?? tive ? Date of Service: 07/06/24 ?Follow Up: 1 Year From Orig ?? inal Mammogram ? Procedure(s): MM tomosynthesis screening BI ?? Accession Number(s): [id number] ? cc: Rosa Lebron MD ? EXAMINATION: [...] DD/ 1238 ? TD/TT: 07/06/24 1255 ? Bottle House Cleaners Supervisor: ? Procedure Note Ulisses Martins - 07/16/2024 [facility] [address] [place] [address] [place] [address] Mammography Report Signed Patient: Arely SunMR#: [id number] : 1975Acct:[id number] Age/Sex: 49 / FADM Date: 07/06/24 Loc: HO.MAMMO Attending Dr: Rosa Lebron MD Ordering Physician: Rosa Lebronults: 1Nega tive Date of Service: 07/06/24Follow Up: 1 Year From Orig inal Mammogram Procedure(s): MM tomosynthesis screening BI Accession Number(s): [id number] cc: Rosa Lebron MD EXAMINATION: MM SCREENING [...] 07/16/24 1119 DD/ 1238 TD/TT: 07/06/24 1255 Bottle House [employer] Supervisor: us Rosa Lebron MD [facility] BI PROCEDURES Final Resul t * Cologuard?? colon cancer screening (09/12/2023 7:40 AM EST) Cologuard Result Negative Negative 09/20/19 1:22 AM EST [facility] (CLIA #:[id number]) Comment: NEGATIVE TEST RESULT. A negative Cologuard [...] cancer. ??Following a negative Cologuard result, the [place] Cancer Society and U.S. Multi-Society Task Force screening guidelines recommend a Cologuard re-screening interval of 3 years. References: [place] [employer] Guideline for Colorectal Cancer Screening: https://www.cancer.org/cancer/bvhqh-hmtpmt-csydyg/wayuxmtwh-esdhxccsl-jldcqrf/ac s-rec ommendations.html.; Yomi DK, Christine REID, Delores SpringerK, Colorectal Cancer Screening: Recommendations for Physicians and Patients from the U.S. Multi-Society Task Force on Colorectal Cancer Screening , Am J Gastroenterology 2017; 112:1978-1597. TEST DESCRIPTION: Composite algorithmic analysis of stool [...] (Sharon Olvera al, N Engl J Med 2014;370(14):1085-5377.) Cologuard may produce a false negative or false positive result (no colorectal cancer or precancerous polyp present at colonoscopy follow up). A negative Cologuard test result does not guarantee the absence of CRC or advanced adenoma (pre-cancer). The current Cologuard screening interval is every 3 years. ([place] Cancer Society and U.S. Multi-Society Task Force). Cologuard performance data in a 10,000 patient pivotal study using colonoscopy as the reference method can be accessed at the following location: www.SportsBlogs/results. Additional description of the Cologuard test process, warnings and precautions can be found at www.[employer].com. Stool specimen (specimen) 09/12/2023 7:40 AM EST 09/13/2023 11:11 AM EST us Rosa Lebron MD LAB MOLECULAR DIAGNOSTICS ORD ERABLES Final Result [facility] (CLIA #:[id number]) [place] [address], * HPV mRNA E6/E7 w/Reflex to HPV Genotypes 16, 18/45 (07/30/2022 2:13 PM EST) HPV nRNA E6/E7 Not Detected Not Detected [facility] Comment:Methodology: Transcr iption-Mediated AmplificationThis assay detects E6/E7 viral messenger RNA (mRNA) from 14high-risk HPV types (16,18,31,33,35,39,45,51,52,56,58,59,66,68).Cervical sources are required for HPV testing.If a vaginal source from a patient who has had atotal hysterectomy with removal of cervix wassubmitted, please contact the testing laboratoryfor alternative testing options.For additional information, please refer tohttp://education.Reedsy.Biotix/faq/ACM692s9(This link if provided for information/educational purposes only.)THIS TEST WAS PERFORMED AT:[employer] [place] [address] ([address] [address]OHRUAKEARA VASQUEZ MD HPV mRNA E6/E7 TNP [facility] HPV 16 RNA TNP [facility] HPV 18/45 RNA TNP [facility] 07/30/2022 2:13 PM EST 07/30/2022 4:30 PM EST us [facility] External Provider LAB CYT OLOGY ORDERABLES Final Result [facility] [address] [place] [address] [phone] * Pap Smear (07/30/2022 2:13 PM EST) 07/30/2022 2:13 PM EST 07/30/2022 4:30 PM EST Narrative [facility] - 08/06/2022 1:00 PM EST ----- ------- Name: Arely Sun ? Age/Sex: 47/F ? : 1975 Unit#: [id number] ?? Attend Dr: Shital Hummel CNM ?Re07/30/22 ?Status: DEP REF ? Location: HO.LNP ?Disch: ? ----- ------- SPEC : [id number] ?RECD: 07/30/22 ? STATUS: ??SOUT ? REQ NUM: [id number] ? SALVADOR: 07/30/22 ? SUBM DR: Shital Hummel CNM ? ENTERED: ??07/30/22 ?SP TYPE: Pap Smr [...] 66, 68) ? HPV testing performed by [facility], [place], [place]. ??See reference laboratory ?? portion of the EMR for entire report. ?Clinical Information LMP: Not sure Previous PAP test: 06/27/21, WNL ? Material Received ?? ThinPrep-Cervical Copies To: ?? ShaheedShital TAYE ?? [address] ?? [place] [address] ?? [phone] ?? Rosa Lebron MD ?? [address] ?? [place] ?? [phone] ----- ------- Signed (signature on file) Rosa Abel Romaine 08/06/22 1300 ? ----- ------- ? END OF REPORT ? us [facility] External Provider LAB CYT OLOGY ORDERABLES Final Result [facility] [address] [place] [address] [phone] * HEPATITIS C AB W/REFL TO HCV RNA, QN, PCR (02/21/2022 10:32 AM EDT) HEPATITIS C ANTIBODY NON-REACT LA NON-REACT LA [facility] INDEX 0.11 <1.00 [facility] Comment: ?? HCV antibody was non-reactive. There is no laboratory ?? evidence of HCV infection. ?? In most cases, no further action is required. However, if recent HCV exposure is suspected, a test for HCV RNA (test code 81427) is suggested. ?? For additional information please refer to http://HipLink.takealot.com/faq/LYI34b4 (This link is being provided for informational/ educational purposes only.) ?? 02/21/2022 10:3 2 AM EDT Rosa Lebron MD HISTORICAL/NON ORDERABLE LABS Final Result Performing Organization Address [facility] de Phone Number [facility] [address] * HIV 1/2 ANTIGEN/ANTIBODY,FOURTH GENERATION W/RFL (02/21/2022 10:32 AM EDT) Pathologist [facility] HIV-1/2 ANTIGEN AND ANTIBODIES, 4TH GENERATION W/ REFLEX NON-REACT LA NON-REACT LA [facility] Comment: HIV-1 antigen and HIV-1/HIV-2 [...] ? For additional information please refer to http://HipLink.takealot.com/faq/CYB243 (This link is being provided for informational/ educational purposes only.) ? The performance of this assay has not been clinically validated in patients less than 2 years old. ?? 02/21/2022 10:3 2 AM EDT us Rosa Lebron MD LAB BLOOD ORDERABLES Final Re sult Performing Organization Address [facility] de Phone Number [facility] [address] from Last 3 Months or Most Recently Relevant to Health Maintenance Insurance [facility] C3 DENTAL-[facility] MEDICAID STAND ADULT Care Teams Forge Helper Relationship Specialty Start Date End Date Rosa Lebron MD [address] [place] [address] PCP - General Family Medicine 03/22/21 Susan Yañez Consulting Physician Hematology and Oncology 07/09/24 Santos Mcleod Nurse Practitioner Urology 07/09/24
--- OUTSIDE RECORDS SUMMARY | 2024-10-30 10:07 | XMS_ITS | Encounter Summary ---
Author Organization [employer] Address [address] [facility] 7t [place] [address] Care Team Providers Care Manager Office Name Role Phone Rosa Lebron MD Primary Care Provider [phone] Encounter Details Date Type Department Care Team (Late st Contact Info) Description 10/12/2024 Orders Only [facility] [address] [place] [address] Telma Hammond MD [address] [place] [address] Acute cough (Primary Dx) Social History Tobacco [...] Description 11/18/2024 11:00 AM EDT Office Visit [facility] ADULT DENTAL [address] [place] [address] Kellie Yoder DMD 04/30/2025 1:00 PM EDT Office Visit [facility] ADULT DENT[facility] [address] [place] [address] Marine Harrell documented as of this encounter Visit Diagnoses Diagnosis Acute cough- Primary documented in this encounter Additional Health Concerns Assessment Noted Time PHQ-9 Depression Total Score: 24 024 3:43 PM EDT documented as of this encounter Care Teams Manager Office Relationship Specialty Start Date End Date Rosa Lebron MD [address] [place] [address] PCP - General Family Medicine 03/22/21 Susan Yañez Consulting Physician Hematology and Oncology 07/09/24 Santos Mcleod Nurse Practitioner Urology 07/09/24 documented as of this encounter
--- OUTSIDE RECORDS SUMMARY | 2024-10-30 10:07 | XMS_ITS | Encounter Summary ---
Author Organization [employer] Address [address] [facility] 7t [place] [address] Care Team Providers Care Dye Colorist Dyer Name Role Phone Rosa Lebron MD Primary Care Provider [phone] Reason for Visit * Reason Comments Routine Cleaning Dental Exam Encounter Details Date Type Department Care Team ([facility] st Contact Info) Description 10/26/2024 11:00 AM EDT Office Visit [facility] ADULT [facility] [address] [place] [address] Marine Harrell Social History Tobacco Use Types [...] Index - - documented in this encounter Progress Notes * Roberto Zaman - 10/26/2024 11:00 AM EDT Dental procedures in this visit D1110 - PROPHYLAXIS - ADULT (Completed) Service provider: Marine Hemphill provider: Otilio Wakefield DMD D9450 - CASE PRESENTATION, DETAILED AND EXTENSIVE TREATMENT PLANNING (Completed) Service provider: Marine Hemphill provider: Otilio Wakefield DMD D1330 - ORAL HYGIENE INSTRUCTIONS (Completed) Service provider: Marine Hemphill provider: Otilio Wakefield DMD D0274 - BITEWINGS - 4 RADIOGRAPHIC IMAGES (Completed) Service provider: Marine Hemphill provider: Otilio Wakefield DMD D0220 - INTRAORAL - PERIAPICAL FIRST RADIOGRAPHIC IMAGE (Completed) Service provider: Marine Hemphill provider: Otilio Wakefield DMD D0230 - INTRAORAL - PERIAPICAL EACH ADDITIONAL RADIOGRAPHIC IMAGE (Completed) Service provider: Marine Hemphill provider: Otilio Wakefield DMD D0120 - PERIODIC ORAL EVALUATION - ESTABLISHED PATIENT (Completed) Service provider: Roberto Zaman Billguevara provider: Rupinder Romeo DDS D0180 - COMPREHENSIVE PERIODONTAL EVALUATION - NEW OR ESTABLISHED PATIENT (Completed) Service provider: Roebrto Zaman Billing provider: Rupinder Romeo DDS Patient ID: Arely Sun is a 49 y.o. female. Time Out: Date: 10/26/2024 Location: [facility] Tooth: Maxilla and Mandible Procedure: Exam Verified the above with patient, delivery assistant, and provider. Confirmed via patient's chart, intraorally and by radiographs. Counseling Case Manager: not applicable 49 y.o. years old female presents for a periodic examination done by Dr. Roberto Zaman CONSENT FORM INITIALED & SIGNED BY THE PATIENT AND COUNTER SIGNED BY Dr. Roberto Zaman Chief Complaint: Im here for my cleaning Medical History: Patient does not report any changes in health issues that could alter the Treatment Plan. Medical consult / medical clearance needed: No [place]: Pain: N/A Duration: N/A Scale of pain from 1 - 10: N/A Aggravating factors: N/A Pain radiating: N/A Postural variation: N/A Allergies: Reviewed in EHR Medications: Reviewed in EHR Vital signs: Blood pressure 126/82. Habits: Smoking: Yes Drinking: No Brushinx a day Flossinx a day Cancer screening: Extra-oral: WNL Intraoral: WNL Extra-oral examination TMJ Deviation - WNL Clicking - WNL Tenderness - WNL Facial symmetry - WNL Lymph nodes - WNL Cheeks - WNL Intraoral examination Soft tissues - WNL Palate - WNL Tongue - WNL Buccal mucosa - WNL Floor of mouth - WNL Vestibules - WNL Glands - WNL Duct area - WNL Oropharynx - WNL Gingiva Color - [place] Contour - Smooth Recession - Generalized Consistency - Thick Texture - Smooth Bleeding on probing - Localized Radiographs Full Mouth X-rays taken on: 09/22/24 Quality are of diagnostic value and appropriate for radiographic analysis? : Yes Radiograph interpretation Thickened PDL on: No Abnormal root resorption: No Horizontal Bone Resorption: Yes Abnormal root formation: No Vertical Bone Loss: Yes Periodontal diagnosis: Periodontitis Stage 2 Grade B Hard tissue exam Missing - as charted Plaque - Light Generalized Calculus - Moderate Generalized Abfraction - Yes Mobility - No Furcation - No Occlusion Overbite (mm): 2 mm Overjet (mm): 4 mm Diastema: No Right Molar Occlusion: Cannot be determined Left Molar Occlusion: Cannot be determined Right Canine Occlusion: Class 1 Left Canine Occlusion: Class 2 Midline: Off to right Anterior/Posterior crossbite: No Arches: Wide Wear Facets: Yes DIAGNOSIS Findings, risks, benefits and alternatives discussed with pt. Reviewed radiographs with pt. Pointedout areas of radiographic calculus. Discussed sequelae of bacteria on gingiva and underlying bone. Recommended prophy, OHI, and SRP. Advised increased frequency of brushing and flossing. 4-6 week perio reevaluation to determine if further treatment indicated. TREATMENT PLAN Phase 1 - [place] Phase 2 - Prostho Phase 3 - Recare Phase 1 - Possible EXT Patient agrees with treatment plan. Patient satisfied, dismissed in stable condition. NV: [place] Provider: Dr. Roberto Zaman Supervising Dentist: Dr. Romeo * Marine Harrell - 10/26/2024 11:00 AM EDT Patient ID: Arely Sun is a 49 y.o. female. Time Out: Timeout Date: 10/26/24, Timeout Time: 1052 Location: [facility] Tooth: Maxilla and Mandible Procedure: Exam, X-rays, and Prophylaxis Verified the above with patient, delivery assistant, and provider. Confirmed via patient's chart, intraorally and by radiographs. Counseling Case Manager: not applicable Medical Hx: Vitals: Blood pressure 126/82. Medications, Med Hx reviewed with patient and updated in chart. Treatment Provided Dental procedures in this visit D1110 - PROPHYLAXIS - ADULT (Completed) Service provider: Marine Hemphill provider: Otilio Wakefield DMD D9450 - CASE PRESENTATION, DETAILED AND EXTENSIVE TREATMENT PLANNING (Completed) Service provider: Marine Hemphill provider: Otilio Wakefield DMD D1330 - ORAL HYGIENE INSTRUCTIONS (Completed) Service provider: Marine Hemphill provider: Otilio Wakefield DMD D0274 - BITEWINGS - 4 RADIOGRAPHIC IMAGES (Completed) Service provider: Marine Hemphill provider: Otilio Wakefield DMD D0220 - INTRAORAL - PERIAPICAL FIRST RADIOGRAPHIC IMAGE (Completed) Service provider: Marine Hemphill provider: Otilio Wakefield DMD D0230 - INTRAORAL - PERIAPICAL EACH ADDITIONAL RADIOGRAPHIC IMAGE (Completed) Service provider: Marine Hemphill provider: Otilio Wakefield DMD Instruments Used: Ultrasonic Scalers, Hand Scalers, and Prophy angle Fluoride: N/A Oral Cancer Screening: No lesions Head/Neck Exam: No Lesions Calculus: Moderate and Generalized Plaque: Light and Generalized Stain: Light and Localized Bleeding: Moderate and Localized Gingiva: Perio Charting Completed, Bleeding on probing, and Recession- generalized [place]: Poor Perio Chart: Completed Dental exam done by Dr. Zaman. Oral hygiene instructions provided to patient including brushing technique and flossing. Recommendations: [place] two times daily, modified huang technique, Floss daily, Electric toothbrush, Soft bristle toothbrush, [place] Tongue, Anti-sensitivity toothpaste, Prevident Recall Frequency: 6 mo NV: Restorations Hygienist: Marine Harrell RDH * Rupinder Romeo DDS - 10/26/2024 11:00 AM EDT I have reviewed the documentation and dental procedures completed by the rendering provider, Roberto Zaman DDS, and approve their chart entries for this visit. PAUL Arguello DDS documented in this encounter Plan of Treatment Upcoming Encounters Date Type Department Care Team (Late st Contact Info) Description 11/18/2024 11:00 AM EDT Office Visit [facility] [address] [place] [address] Kellie Yoder DMD 04/30/2025 1:00 PM EDT Office Visit [facility] [address] [place] [address] Marine Harrell Scheduled Orders Name Type Priority [...] AND TEETH) Dental Routine [address] ing 10/26/2024 21 B(V) 21 B(V) RESIN-BASED COMPOSITE - 1 SURF, POSTERIOR Dental Routine 1 Occurrences starting 10/26/2024 31 O 31 O RESIN-BASED COMPOSITE - 1 SURF, POSTERIOR Dental Routine 1 Occurrences 10/26/2024 PROPHYLAXIS - ADULT Dental Routine 1 Occ urrences starting 10/26/2024 10 D 10 D RESIN-BASED COMPOSITE - 1 SURF, ANTERIOR Dental Routine 1 Occurrences 10/26/2024 18 B 18 B RESIN-BASED COMPOSITE - 1 SURF, POSTERIOR Dental Routine 1 Occurrences 10/26/2024 19 B 19 B RESIN-BASED COMPOSITE - 1 SURF, POSTERIOR Dental Routine 1 Occurrences 10/26/2024 27 F(V) 27 F(V) RESIN-BASED COMPOSITE - 1 SURF, ANTERIOR Dental Routine 1 Occurrences s tarting 10/26/2024 documented as of this encounter Procedures Procedure Name Priority Date/Time Associated Diagnosis Comments PROPHYLAXIS - ADULT Routine 10/26/2024 1 1:00 AM EDT PERIODIC ORAL EVALUATION - ESTABLISHED PATIENT Routine 10/26/2024 11:00 AM EDT ORAL HYGIENE INSTRUCTIONS Routine 2024 11:00 AM EDT INTRAORAL - PERIAPICAL FIRST RADIOGRAPHIC IMAGE Routine 10/26/2024 11:00 AM EDT INTRAORAL - PERIAPICAL EACH ADDITIONAL RADIOGRAPHIC IMAGE Routine 10/26/2024 11:00 AM EDT COMPREHENSIVE PERIODONTAL EVALUATION - NEW OR ESTABLISHED PATIENT Routine 10/26/2024 11:00 AM EDT CASE PRESENTATION, DETAILED AND EXTENSIVE TREATMENT PLANNING Routine 10/26/2024 11:00 AM EDT BITEWINGS - 4 RADIOGRAPHIC IMAGES Routine 10/26/2024 11:00 AM EDT documented in this encounter Visit Diagnoses Not on filedocumented in this encounter Additional Health Concerns Assessment Noted Time PHQ-9 Depression Total Score: 24 10/2 024 3:43 PM EDT documented as of this encounter Care Teams Dye Colorist Dyer Relationship Specialty Start Date End Date Rosa Lebron MD [address] [place] [address] PCP - General Family Medicine 03/22/21 Susan Yañez Consulting Physician Hematology and Oncology 07/09/24 Santos Mcleod Nurse Practitioner Urology 07/09/24 documented as of this encounter
[2024-10-30 11:12] LABS: Appearance Urine Clear; Color Urine Yellow; Glucose Urine UA Negative (Negative); Leukocyte Esterase Urine Negative (Negative); Nitrite Urine Negative (Negative); PH 6.5 (5.0-9.0); Specific Gravity - Urine 1.025 (1.005-1.025); Urine Blood Negative (Negative); Urine Ketones Trace mg/dL (Negative); Urine Protein Negative (Neg-Trace)
[2024-10-30 11:26] LABS: Bacteria Urine 1+ (None Seen); Hyaline Casts Urine 0-2 /LPF (0-2); RBC Urine 0-2 /HPF (0-2); WBC Urine 0-5 /HPF (0-5)
== END 2024-10-30 09:38 | disposition home or self-care (01) ==
LOC: HO.LAB 09:37
PROVIDERS: PCP Family Medicine; Visit Provider Urology
DX: N39.3 Stress incontinence (female) (male) (principal); R33.9 Retention of urine, unspecified; N36.42 Intrinsic sphincter deficiency (ISD)
CPT/HCPCS: 51728; 51741; 51784; 51797; 81001; 81003; 87086

== ENCOUNTER 2024-10-30 10:01 | Outpatient (AMB) | payer MEDICAID, SELFPAY ==
--- NOTE | 2024-10-30 10:28 | A.OFFVIS_ITS ---
Intake Visit Reasons: Urodynamics Allergies No Known Allergies [No Known Allergies*] Allergy (Verified 11/17/24 11:47) HPI Comments Details: 10/30/24--Arely is here for urodynamics. The patient has complaints of urinary incontinence. Interpretation: During the filling phase there was normal sensation, without detrusor overactivity during the filling phase. Leakage was observed during cough/ valsalva stress. Findings consistent with ISD. EMG- Appropriate changes in the waveforms were noted through out the study. Plan Bulkamid 08/03/24--Arely is a very pleasant 49-year-old female patient of Dr. Lebron. She has a past medical history of anxiety, hemorrhoids, and constipation. She presents to the office today for follow-up of her ongoing lower urinary tract symptoms. In discussion with the patient today she reports no improvement in mixed urinary incontinence with trial of Myrbetriq 25 mg daily. She has also previously trialed oxybutynin with no improvement. Previous workup has included a retroperitoneal ultrasound 02/11 noting bilateral kidneys with no renal calculi or lesions noted. The bladder is well distended and normal. Bladder ureteral jets are demonstrated. Pre void bladder volume is approximately 330 mL. Postvoid bladder volume is approximately 10 mL. She has a history of 3 vaginal births of 3 large babies weighing approximately 9-10 lb. She reports labors were short. She otherwise denies nocturia, hematuria, dysuria, foul smelling urine, changes to urinary stream, flank pain, fever, and or chills. She does have a history of nicotine dependence. In office urinalysis results reviewed with the patient today. She reports feeling stress incontinence to be most bothersome. We discussed further treatment options to include pelvic floor therapy, trial of a different medications, and or urodynamics for further assessment evaluation. She otherwise offers no other issues or concerns at this time. [facility] Medical History History of anxiety Bleeding hemorrhoids Constipation Hemorrhoid Surgical History H/O hand surgery History of tubal ligation History of tonsillectomy Family History Father Hx of tongue cancer Mother Alive and well Social History Household Members: Family Housing: Apartment Are you a primary director of home care hospice to a significant other at home: No Do you presently have visiting nurse or other home services: No Alcohol intake: never Patient Tobacco Use Status: Current everyday Tobacco user Tobacco use type: Cigarette Cigarette Packs Per Day: 4 Cigarettes Per Day: 6 Years Smoked: 20+ Use of substances other than those prescribed or required for medical reasons: No Have you been hit, kicked, punched, or otherwise hurt by someone within the past year? If so, by whom?: No Are you DNR?: No Advance Directives: No Advance Directives Information Provided: Yes service: No Current occupational status: disabled Female Reproductive History Menstrual Age of Menarche: 14 Office Procedures Urodynamic Studies Consent Discussed risk and benefit or proposed procedure with the patient. Information consent for procedure given to the patient. Discussed technical aspects, risks, benefits and alternatives in full. Addressed all of the patient's questions and concerns regarding the procedure. The patient demonstrated knowledge and understanding. They wish to proceed with this procedure. Preparation The patient was prepped in the usual manner. A wire setter was present and in the room. Genitalia was prepped with betadine solution in a sterile manner. Procedure Complex Uroflow Complex uroflow performed by: Adan Swan Maximum urinary flow rate (mL/second): [12 ml/s] Voiding time (seconds): [4.4s] Voided volume (mL): [33ml] Residual urine (mL): [<10ml] Cystometrogram Vaginal/rectal catheter type: vaginal First sensation at (mL): [23] mL First desire at (mL): [77] mL Strong desire to void occured at (mL): [327] mL Strong desire detrussor pressure (cm H2O): [1.6] Maximum fill (mL): [369] mL Voided with max detrussor pressure of (cm H2O): [1.0] Maximum flow rate (mL/second): [23] mL/s Voided volume (mL): [325] Stress test performed at 200ml with (-) leak with cough or Valsalva Stress test performed at 331ml with (+) leak with cough and (-) leak with Valsalva Prep: The patient was prepped in the usual manner. A wire setter was present and in the room. Genitalia was prepped with betadine solution in a sterile manner. 35768-Rljeqrimiowdqb w/ SETTER OUT 75778-Jpplvwr-Swonchlefshe 48123-Pgzf/Urinary Muscle Study 48225-Jcqyb-Ztghlihhy Pressure Test Procedure code (CPT) selection complete Office Meds nitrofurantoin monohydrate/macrocrystals 100 mg capsule Performing Provider: Adan Swan MD Performing Location[facility] [place] [facility] Administered by: Gretta Alex RN on 10/30/24 10:28 Dose Route Admin Location Dispensed Lot Number Expiration Date ND Laser Beam Machine Operator 100 mg PO 1 cap Results AMB Urinalysis, Automated UA Leukoctes 0 Juarez/uL Last Edit by Gretta Alex RN on 10/30/24 12:48 UA Nitrite Negative Last Edit by Gretta Alex RN on 10/30/24 12:48 UA Urobilinogen 0.2 mg/dL Last Edit by Gretta Alex RN on 10/30/24 12: 48 UA Protein 0 mg/dL Last Edit by Gretta Alex RN on 10/30/24 12:48 UA pH 6.0 Last Edit by Gretta Alex RN on 10/30/24 12:48 UA Blood 0 Jalil/uL Last Edit by Gretta Alex RN on 10/30/24 12:48 UA Specific [place] 1.02 Last Edit by Gretta Alex RN on 10/30/24 12: 48 UA Ketone Negative Last Edit by Gretta Alex RN on 10/30/24 12:48 UA Bilirubin 0 mg/dL Last Edit by Gretta Alex RN on 10/30/24 12:48 UA Glucose 0 mg/dL Last Edit by Gretta Alex RN on 10/30/24 12:48 Results Reviewed Results Reviewed: Laboratory Last Values Urine pH (Auto) 6.0 10/30/24 12:47 Specific [place] (Auto) 1.02 10/30/24 12:47 Urine Protein (Auto) 0 mg/dL 10/30/24 12:47 Glucose (UA)(Auto) 0 mg/dL 10/30/24 12:47 Urine Ketones (Auto) Negative 10/30/24 12:47 Urine Blood (Auto) 0 Jalil/uL 10/30/24 12:47 Urine Nitrite (Auto) Negative 10/30/24 12:47 Urine Bilirubin (Auto) 0 mg/dL 10/30/24 12:47 Urine Urobilinogen (Auto) 0.2 mg/dL 10/30/24 12:47 Leukocyte Esterase (Auto) 0 Juarez/uL 10/30/24 12:47 Assessment & Plan Assessment & Plan (1) KARL (stress urinary incontinence, female): Code(s): N39.3 - Stress incontinence (female) (male) Category: Medical (2) Intrinsic sphincter deficiency (ISD): Code(s): N36.42 - Intrinsic sphincter deficiency (ISD) Category: Medical Plan Urethral Bulking, Bulkamid. I have discussed the risks of bulking injection to the proximal urethra to include but not limited to urine retention requiring a miller catheter, need to repeat the procedure, hematuria, and urgency. Orders: Orders Urine Culture 10/30/24 N39.3 - Stress incontinence (female) (male), R33.9 - Retention of urine, unspecified UA w Microscopic 10/30/24 R33.9 - Retention of urine, unspecified, N39.3 - Stress incontinence (female) (male) AMB Urodynamics Studies 10/30/24 N39.3 - Stress incontinence (female) (male), R33.9 - Retention of urine, unspecified AMB Urinalysis Automated 10/30/24 Z13.9 - Encounter for screening, unspecified Patient Instructions: The patient had an opportunity to ask questions regarding treatment plan. The patient expressed understanding and agreement with the above treatment plan. The patient is aware they should contact our office by phone for worsening of their current condition or the appearance of new symptoms. Compliance is encouraged with any medications and followup testing that is ordered. It is a privilege to be allowed the opportunity to participate in the urologic care of your patient. If you have any questions or concerns regarding treatment for the above conditions please do not hesitate to contact me. The office telephone contact is [phone]. This note is constructed in part using voice recognition software. While every effort has been made to ensure accuracy food production associate errors may have been included. Yours sincerely, Adan Swan MD Coding Level of Care Code Procedure Only Diagnoses KARL (stress urinary incontinence, female) N39.3 Intrinsic sphincter deficiency (ISD) N36.42 CPT Codes Urodynamic Studies - CPT: 82032-Todgmhrjwlpfxm w/ SETTER OUT ([id number]) Urodynamic Studies - CPT: 67603-Rzqulfj-Gsvpfizjyqwt ([id number]) Urodynamic Studies - CPT: 06802-Owvv/Urinary Muscle Study ([id number]) Urodynamic Studies - CPT: 47789-Qkvpr-Zrvurmtez Pressure Test ([id number])
--- OUTSIDE RECORDS SUMMARY | 2024-10-30 10:40 | XMS_ITS | Encounter Summary ---
Author Organization [employer] Address [address] [place] [address] Care Team Providers Care Data Collector Name Role Phone Rosa Lebron MD Primary Care Provider [phone] Reason for Visit * Reason Comments Routine Cleaning Dental Exam Encounter Details Date Type Department Care Team ([facility] st Contact Info) Description 10/26/2024 11:00 AM EDT Office Visit [facility] [address] [place] [address] Marine Harrell Social History Tobacco Use Types [...] NEW OR ESTABLISHED PATIENT (Completed) Service provider: Roberto Zaman Billing provider: Rupinder Romeo DDS Patient ID: Arely Sun is a 49 y.o. female. Time Out: Date: 10/26/2024 Location: [facility] Tooth: Maxilla and Mandible Procedure: Exam Verified the above with patient, learning and development assistant, and provider. Confirmed via patient's chart, intraorally and by radiographs. Quality Improvement Consultant: not applicable 49 y.o. years old female presents for a periodic examination done by Dr. Roberto Zaman CONSENT FORM INITIALED & SIGNED BY THE PATIENT AND COUNTER SIGNED BY Dr. Roberto Zaman Chief Complaint: Im here for my cleaning Medical History: Patient does not report any changes in health issues that could alter the Treatment Plan. Medical consult / medical clearance needed: No KASHIA: Pain: N/A Duration: N/A Scale of pain [...] WNL Oropharynx - WNL Gingiva Color - [place] Contour - Smooth Recession - Generalized Consistency [...] Timeout Date: 10/26/24, Timeout Time: 1052 Location: [facility] Tooth: Maxilla and Mandible Procedure: Exam, X-rays, and Prophylaxis Verified the above with patient, learning and development assistant, and provider. Confirmed via patient's chart, intraorally and by radiographs. Quality Improvement Consultant: not applicable Medical Hx: Vitals: Blood pressure [...] patient including brushing technique and flossing. Recommendations: Prue two times daily, modified huang technique, Floss daily, Electric toothbrush, Soft bristle toothbrush, Prue Tongue, Anti-sensitivity toothpaste, Prevident Recall Frequency: 6 [...] Office Visit [facility] [address] [place] [address] Kellie Yoder DMD 04/30/2025 1:00 PM EDT Office Visit [facility] [address] [place] [address] Marine Harrell Scheduled Orders Name Type Priority [...] documented as of this encounter Care Teams Data Collector Relationship Specialty Start Date End Date Rosa Lebron MD [address] [place] [address] PCP - General Family Medicine 03/22/21 Susan Yañez Consulting Physician Hematology and Oncology 07/09/24 Santos Mcleod Nurse Practitioner Urology 07/09/24 documented as of this encounter
--- OUTSIDE RECORDS SUMMARY | 2024-10-30 10:40 | XMS_ITS | Encounter Summary ---
Author Organization [employer] Address [address] [facility] [address] [facility] [address] [place] [address] Care Team Providers Care Swine Extension Field Specialist Name Role Phone Rosa Lebron MD Primary Care Provider [phone] Encounter Details Date Type Department Care Team (Late st Contact Info) Description 10/12/2024 Orders Only [facility] MEDICINE [address] [place] [address] Telma Hammond MD [address] [place] [address] Acute cough (Primary Dx) Social History Tobacco [...] Description 11/18/2024 11:00 AM EDT Office Visit [facility] [address] [place] [address] Kellie Yoder DMD 04/30/2025 1:00 PM EDT Office Visit [facility] [address] [place] [address] Marine Harrell documented as of this encounter Visit Diagnoses Diagnosis Acute cough- Primary documented in this encounter Additional Health Concerns Assessment Noted Time PHQ-9 Depression Total Score: 24 024 3:43 PM EDT documented as of this encounter Care Teams Swine Extension Field Specialist Relationship Specialty Start Date End Date Rosa Lebron MD [address] [place] [address] PCP - General Family Medicine 03/22/21 Susan Yañez Consulting Physician Hematology and Oncology 07/09/24 Santos Mcleod Nurse Practitioner Urology 07/09/24 documented as of this encounter
--- OUTSIDE RECORDS SUMMARY | 2024-10-30 10:40 | XMS_ITS | Encounter Summary ---
Author Organization [employer] [facility] Address [address] [facility] [address] [place] [address] Care Team Providers Care Hydraulic Lift Driver Name Role Phone Rosa Lebron MD Primary Care Provider [phone] Encounter Details Date Type Department Care Team (Late st Contact Info) Description 04/16/2023 Orders Only [facility] MED[facility]INE [address] [place], [place] [phone] Provider, MD Nano Social History Tobacco Use [...] Description 11/18/2024 11:00 AM EDT Office Visit [facility] ADULT D[facility] [address] [place] [address] Kellie Yoder DMD 04/30/2025 1:00 PM EDT Office Visit [facility] ADULT D[facility] [address] [place] [address] Marine Harrell documented as of this encounter [...] documented as of this encounter Care Teams Hydraulic Lift Driver Relationship Specialty Start Date End Date Rosa Lebron MD [address] [place] [address] PCP - General Family Medicine 03/22/21 Susan Yañez Consulting Physician Hematology and Oncology 07/09/24 Santos Mcleod Nurse Practitioner Urology 07/09/24 documented as of this encounter
--- OUTSIDE RECORDS SUMMARY | 2024-10-30 10:40 | XMS_ITS | Encounter Summary ---
Author Organization [employer] Address [address] [place] [address] Care Team Providers Care Automation Test Developer Name Role Phone Rosa Lebron MD Primary Care Provider [phone] Reason for Visit * Reason Comments Med Refill Encounter Details Date Type Department Care Team ([facility] Contact Info) Description 12/06/2023 Refill [facility]S [address] [place] [address] Rosa Lebron MD [address] [place] [address] Social History Tobacco Use Types Packs/Day Years [...] Description 11/18/2024 11:00 AM EDT Office Visit [facility] ADULT DENTAL [address] [place] [address] Kellie Yoder DMD 04/30/2025 1:00 PM EDT Office Visit [facility] ADULT DENT[facility] [address] [place] [address] Marine Harrell documented as of this encounter Visit Diagnoses Not on filedocumented in this encounter Additional Health Concerns Assessment Noted Time PHQ-9 Depression Total Score: 12 023 2:24 PM EST documented as of this encounter Care Teams Automation Test Developer Relationship Specialty Start Date End Date Rosa Lebron MD [address] [place] [address] PCP - General Family Medicine 03/22/21 Susan Yañez Consulting Physician Hematology and Oncology 07/09/24 Santos Mcleod Nurse Practitioner Urology 07/09/24 documented as of this encounter
--- OUTSIDE RECORDS SUMMARY | 2024-10-30 10:40 | XMS_ITS | Clinical Summary ---
Author Organization [employer] Address [address] [facility] 7t [place] [address] Care Team Providers Care Gore Cutter Name Role Phone Rosa Lebron MD Primary Care Provider Allergies No known active allergies Medications ferrous [...] via telemedicine. She may be moving to [place], [place]. Anxiety 02/19/2022 Assessment & Plan (09/03/2022 9:57 PM EST): Patient with depressed mood, reports her therapist from [facility] is working on getting her a prescriber. She reports not sleeping, at this moment, will increase her seroquel to 150 mg and f/u via telemedicine in 2 weeks. Reports that she does not feel comfortable coming to [facility], she is considering switching to another facility, [...] Center 09/26/2023 1:30 PM Rosa Lebron MD [facility] MED [facility] Encounters Date Type Department Care Team Description 10/26/2024 11:00 AM EDT Office Visit [facility] [address] [place] [address] Marine Harrell 10/23/2024 Patient Outreach [facility] [address] [place] [phone] Rosa Lebron MD Care Coordination ([facility]/W RA Ziegler reschedule assessment_lvm ) 10/16/2024 Patient Outreach [facility] [address] [place] [address] Rosa Lebron MD Care Coordination (Outreach) 10/13/2024 1:30 PM EDT Office Visit [facility] [address] [place] [address] Jame, Lorri, OD Presbyopia (Primary Dx) 10/12/2024 11:15 AM EDT Office Visit [facility] [address] [place] [address] Telma Hammond MD Urinary tract infection with hematuria, site unspecified (Primary Dx); Acute cough; Smoking trying to quit 10/12/2024 Orders Only [facility] [address] [place] [phone] Telma Hammond MD Acute cough (Primary Dx) 10/12/2024 Telephone [facility] [address] [place], [place] [phone] Rosa Lebron MD Medication Question 10/12/2024 Travel 10/06/2024 1:40 PM EDT Office Visit [facility] [address] [place] [address] Rachele Zamora MD Recurrent UTI (Primary Dx); Primary hypertension 10/06/2024 Telephone [facility] [address] [place] [address] Rosa Lebron MD ER Follow-up 10/02/2024 Population Health Risk Score Community Care [facility] () Department [address] [place] [phone] Provider, Population Health Generic 10/02/2024 Patient Outreach [facility] [address] [place] [address] Rosa Lebron MD Care Coordination (Outreach) 09/02/2024 2:00 PM EST Office Visit [facility] [address] [place] [address] Jame, Lorri, OD Normal eye exam (Primary Dx); Presbyopia 09/02/2024 Travel 08/05/2024 Telephone [facility] [address] [place] [address] Soraya Johnson MA Internal Referral from Last [...] Visit [facility] [address] [place] [address] Kellie Yoder DMD 04/30/2025 1:00 PM EDT Office Visit [facility] [address] [place] [address] Marine Harrell Health Maintenance Due Date Last [...] 11:56 AM EST) Triglycerides 210(H) <150 mg/dL [facility] Comment:Desirable Triglyceri de: less than 150 mg/dLBorderline High Triglyceride 150-199 mg/dLHigh Triglyceride: 200-499 mg/dLVery High Triglyceride: greater than or equal to 5OO mg/dL Cholesterol 236(H) <200 mg/dL [facility] Comment:Desirable Cholestero l: less than 200 mg/dLBorderline High Cholesterol: 200-239 mg/dLHigh Cholesterol: greater than 239 mg/dL LDL Cholesterol Calculated 155(H) <100 mg/dL [facility] Comment:Desirable LDL: less than 100 mg/dLNear Optimal/Above Optimal LDL: 110- 129 mg/dLBorderline High LDL: 130-159 mg/dLHigh LDL: 160-189 mg/dLVery High LDL: greater than or equal to 190 mg/dL HDL Cholesterol 39(L) >40 mg/dL [facility] Comment:Desirable HDL: great er than 40 mg/dL Note: This HDL assay may give artificially low results in patients with liver disease. Blood Venous blood specimen / Unknown 07/27/2024 11:56 AM EST 07/27/2024 11:56 AM EST us Rosa Lebron MD LAB BLOOD ORDERABLES Final Re sult [facility] [address] [place] [address] [phone] * BI Mammogram Screening Tomosynthesis Bilateral (07/06/2024 12:38 PM EST) Anatomical Region Laterality Modality Breast Bilateral Mammography 07/06/2024 12:3 8 PM EST Narrative 07/16/2024 11:22 AM EST ? [facility] [place] ? [address] ?[place] [address] ? Mammography Report ? Signed ? Patient: Dino,Arely ?MR#: [id number] ? : 1975 ?Acct:[id number] ? Age/Sex: 49 / F ?ADM Date: 07/06/24 ? Loc: HO.MAMMO ? Attending Dr: Rosa Lebron MD ? Ordering Physician: Rosa Lebron MD ?Results: 1Nega ?? tive ? Date of Service: 07/06/24 ?Follow Up: 1 Year From Orig ?? inal Mammogram ? Procedure(s): MM tomosynthesis screening BI ?? Accession Number(s): [id number] ? cc: Rosa Lebron MD ? EXAMINATION: [...] DD/ 1238 ? TD/TT: 07/06/24 1255 ? Food And Beverage Coordinator: ? Procedure Note Ulisses Martins - 07/16/2024 [facility] [address] [place] [address] [place] [address] Mammography Report Signed Patient: Arely SunMR#: [id number] : 1975Acct:[id number] Age/Sex: 49 / FADM Date: 07/06/24 Loc: HO.MAMMO Attending Dr: Rosa Lebron MD Ordering Physician: Rosa Lebronults: 1Nega tive Date of Service: 07/06/24Follow Up: 1 Year From Orig inal Mammogram Procedure(s): MM tomosynthesis screening BI Accession Number(s): [id number] cc: Rosa Lebron MD EXAMINATION: MM SCREENING [...] 07/16/24 1119 DD/ 1238 TD/TT: 07/06/24 1255 Food And Beverage Coordinator: us Rosa Lebron MD [facility] BI PROCEDURES Final Resul t * Cologuard?? colon cancer screening (09/12/2023 7:40 AM EST) Cologuard Result Negative Negative 09/20/19 1:22 AM EST [facility] (CLIA #:[id number]) Comment: NEGATIVE TEST RESULT. A negative Cologuard [...] cancer. ??Following a negative Cologuard result, the [place] Cancer Society and U.S. Multi-Society Task Force screening guidelines recommend a Cologuard re-screening interval of 3 years. References: [place] [employer] Society Guideline for Colorectal Cancer Screening: https://www.cancer.org/cancer/utmoa-gpfhsr-umdagx/kjsujtmfe-nxtptweuy-cjdykdm/ac s-rec ommendations.html.; Yomi DK, Christine REID, Delores SpringerK, Colorectal Cancer Screening: Recommendations for Physicians and Patients from the U.S. Multi-Society Task Force on Colorectal Cancer Screening , Am J Gastroenterology 2017; 112:2461-6196. TEST DESCRIPTION: Composite algorithmic analysis of stool [...] (Sharon Olvera al, N Engl J Med 2014;370(14):6322-1215.) Cologuard may produce a false negative or false positive result (no colorectal cancer or precancerous polyp present at colonoscopy follow up). A negative Cologuard test result does not guarantee the absence of CRC or advanced adenoma (pre-cancer). The current Cologuard screening interval is every 3 years. ([place] Cancer Society and U.S. Multi-Society Task Force). Cologuard performance data in a 10,000 patient pivotal study using colonoscopy as the reference method can be accessed at the following location: www.Serometrix/results. Additional description of the Cologuard test process, warnings and precautions can be found at www.Egomotionoguard.com. Stool specimen (specimen) 09/12/2023 7:40 AM EST 09/13/2023 11:11 AM EST us Rosa Lebron MD LAB MOLECULAR DIAGNOSTICS ORD ERABLES Final Result [facility] (CLIA #:[id number]) [place] [address], * HPV mRNA E6/E7 w/Reflex to HPV Genotypes 16, 18/45 (07/30/2022 2:13 PM EST) HPV nRNA E6/E7 Not Detected Not Detected [facility] Comment:Methodology: Transcr iption-Mediated AmplificationThis assay detects E6/E7 viral messenger RNA (mRNA) from 14high-risk HPV types (16,18,31,33,35,39,45,51,52,56,58,59,66,68).Cervical sources are required for HPV testing.If a vaginal source from a patient who has had atotal hysterectomy with removal of cervix wassubmitted, please contact the testing laboratoryfor alternative testing options.For additional information, please refer tohttp://education.SPHARES.Spiced Bits/faq/DND324s7(This link if provided for information/educational purposes only.)THIS TEST WAS PERFORMED AT:[facility] [place] [address] ([address] [phone] VASQUEZ MD HPV mRNA E6/E7 TNP [facility] HPV 16 RNA TNP [facility] HPV 18/45 RNA TNP [facility] 07/30/2022 2:13 PM EST 07/30/2022 4:30 PM EST us [facility] External Provider LAB CYT OLOGY ORDERABLES Final Result [facility] [address] [place] [address] [phone] * Pap Smear (07/30/2022 2:13 PM EST) 07/30/2022 2:13 PM EST 07/30/2022 4:30 PM EST Narrative [facility] - 08/06/2022 1:00 PM EST ----- ------- Name: Arely Sun ? Age/Sex: 47/F ? : 1975 Unit#: [id number] ?? Attend Dr: Shital Hummel CNM ?Re07/30/22 ?Status: DEP REF ? Location: HO.LNP ?Disch: ? ----- ------- SPEC : [id number] ?RECD: 07/30/22 ? STATUS: ??SOUT ? REQ NUM: [id number] ? SALVADOR: 07/30/22 ? SUBM DR: Shital [...] 66, 68) ? HPV testing performed by [facility], [place], [place]. ??See reference laboratory ?? portion of the EMR for entire report. ?Clinical Information LMP: Not sure Previous PAP test: 06/27/21, WNL ? Material Received ?? ThinPrep-Cervical Copies To: ?? ShaheedShital TAYE ?? [address] ?? [place] [address] ?? [phone] ?? Rosa Lebron MD ?? [address] ?? [place] ?? [phone] ----- ------- Signed (signature on file) Rosa Abel Romaine 08/06/22 1300 ? ----- ------- ? END OF REPORT ? us [facility] External Provider LAB CYT OLOGY ORDERABLES Final Result [facility] [address] [place] [address] [phone] * HEPATITIS C AB W/REFL TO HCV RNA, QN, PCR (02/21/2022 10:32 AM EDT) HEPATITIS C ANTIBODY NON-REACT LA NON-REACT LA [facility] INDEX 0.11 <1.00 [facility] Comment: ?? HCV antibody was non-reactive. There is no laboratory ?? evidence of HCV infection. ?? In most cases, no further action is required. However, if recent HCV exposure is suspected, a test for HCV RNA (test code 31222) is suggested. ?? For additional information please refer to http://RealtyAPX.OCZ Technology/faq/KOC37h8 (This link is being provided for informational/ educational purposes only.) ?? 02/21/2022 10:3 2 AM EDT Rosa Lebron MD HISTORICAL/NON ORDERABLE LABS Final Result Performing Organization Address [facility] de Phone Number [facility] [address] * HIV 1/2 ANTIGEN/ANTIBODY,FOURTH GENERATION W/RFL (02/21/2022 10:32 AM EDT) Pathologist [facility] HIV-1/2 ANTIGEN AND ANTIBODIES, 4TH GENERATION W/ REFLEX NON-REACT LA NON-REACT LA [facility] Comment: HIV-1 antigen and HIV-1/HIV-2 [...] ? For additional information please refer to http://Re[employer]APX.OCZ Technology/faq/CZO331 (This link is being provided for informational/ educational purposes only.) ? The performance of this assay has not been clinically validated in patients less than 2 years old. ?? 02/21/2022 10:3 2 AM EDT us Rosa Lebron MD LAB BLOOD ORDERABLES Final Re sult Performing Organization Address [facility] de Phone Number [facility] [address] from Last 3 Months or Most Recently Relevant to Health Maintenance Insurance [facility] C3 DENTAL-[facility] MEDICAID STAND ADULT Care Teams Gore Cutter Relationship Specialty Start Date End Date Rosa Lebron MD [address] [place] [address] PCP - General Family Medicine 03/22/21 Susan Yañez Consulting Physician Hematology and Oncology 07/09/24 Santos Mcleod Nurse Practitioner Urology 07/09/24
--- OUTSIDE RECORDS SUMMARY | 2024-10-30 10:40 | XMS_ITS | Encounter Summary ---
Author Organization [employer] Address [address] [place] [address] Care Team Providers Care Core Driller Name Role Phone Rosa Lebron MD Primary Care Provider [phone] Encounter Details Date Type Department Care Team (Late st Contact Info) Description 06/07/2023 Abstract [facility] AD[facility] [address] [place], [place] [phone] Nagi Conway DDS [address] [place], [place] [phone] Social History Tobacco Use Types Packs/Day Years [...] 11:00 AM EDT Office Visit [facility] [address] [place] [address] Kellie Yoder DMD 04/30/2025 1:00 PM EDT Office Visit [facility] [address] [place] [address] Marine Harrell documented as of this encounter Visit Diagnoses Not on filedocumented in this encounter Additional Health Concerns Assessment Noted Time PHQ-9 Depression Total Score: 12 023 2:24 PM EST documented as of this encounter Care Teams Core Driller Relationship Specialty Start Date End Date Rosa Lebron MD [address] [place] [address] PCP - General Family Medicine 03/22/21 Susan Yañez Consulting Physician Hematology and Oncology 07/09/24 Santos Mcleod Nurse Practitioner Urology 07/09/24 documented as of this encounter
== END 2024-10-30 12:04 | disposition home or self-care (01) ==
LOC: HO.HUSH 10:02
PROVIDERS: PCP Family Medicine; Visit Provider Urology
DX: N39.3 Stress incontinence (female) (male) (principal); R33.9 Retention of urine, unspecified; Z13.9 Encounter for screening, unspecified
CPT/HCPCS: 51728; 51741; 51784; 51797

== ENCOUNTER 2024-11-17 11:17 | Day surgery (SDC) | payer MEDICAID, SELFPAY ==
--- OUTSIDE RECORDS SUMMARY | 2024-11-11 09:06 | XMS_ITS | Encounter Summary ---
Author Organization [employer] Address [address] [facility] 7t [place] [address] Care Team Providers Care Assistant Professor Of Dietetics Name Role Phone Rosa Lebron MD Primary Care Provider [phone] Reason for Visit * Reason Comments Med Refill Encounter Details Date Type Department Care Team ([facility] Contact Info) Description 12/06/2023 Refill [facility] [address] [place] [address] Rosa Lebron MD [address] [place] [address] Social History Tobacco Use Types Packs/Day Years [...] Care Team (Late st Contact Info) Description 04/30/2025 1:00 PM EDT Office Visit [facility] [address] [place] [address] Marine Harrell documented as of this encounter Visit Diagnoses Not on filedocumented in this encounter Additional Health Concerns Assessment Noted Time PHQ-9 Depression Total Score: 12 023 2:24 PM EST documented as of this encounter Care Teams Assistant Professor Of Dietetics Relationship Specialty Start Date End Date Rosa Lebron MD [address] [place] [phone] PCP - General Family Medicine 03/22/21 Susan Yañez Consulting Physician Hematology and Oncology 07/09/24 Santos Mcleod Nurse Practitioner Urology 07/09/24 documented as of this encounter
--- OUTSIDE RECORDS SUMMARY | 2024-11-11 09:06 | XMS_ITS | Encounter Summary ---
Author Organization [employer] Address [address] [facility] [facility] [address] 7t [place] [address] Care Team Providers Care Fur Stylist Name Role Phone Rosa Lebron MD Primary Care Provider Encounter Details Date Type Department Care Team (Late st Contact Info) Description 06/07/2023 Abstract [facility] [address] [place], [place] [phone] Nagi Conway DDS [address] [place], [place] [phone] Social History Tobacco Use Types Packs/Day Years [...] Description 04/30/2025 1:00 PM EDT Office Visit [facility] [address] [place] [address] Marine Harrell documented as of this encounter Visit Diagnoses Not on filedocumented in this encounter Additional Health Concerns Assessment Noted Time PHQ-9 Depression Total Score: 12 023 2:24 PM EST documented as of this encounter Care Teams Fur Stylist Relationship Specialty Start Date End Date Rosa Lebron MD [address] [place] [address] PCP - General Family Medicine 03/22/21 Susan Yañez Consulting Physician Hematology and Oncology 07/09/24 Santos Mcleod Nurse Practitioner Urology 07/09/24 documented as of this encounter
--- OUTSIDE RECORDS SUMMARY | 2024-11-11 09:06 | XMS_ITS | Encounter Summary ---
Author Organization [employer] Address [address] [facility] [address]t [place] [address] Care Team Providers Care Nursing Unit Clerk Name Role Phone Rosa Lebron MD Primary Care Provider [phone] Encounter Details Date Type Department Care Team (Late Contact Info) Description 04/16/2023 Orders Only [facility] [address] [place], [place] [phone] Provider, MD Nano Social History Tobacco Use [...] Description 04/30/2025 1:00 PM EDT Office Visit [facility] [address] [place] [address] Marine Harrell documented as of this encounter [...] documented as of this encounter Care Teams Nursing Unit Clerk Relationship Specialty Start Date End Date Rosa Lebron MD [address] [place] [address] PCP - General Family Medicine 03/22/21 Susan Yañez Consulting Physician Hematology and Oncology 07/09/24 Santos Mcleod Nurse Practitioner Urology 07/09/24 documented as of this encounter
--- OUTSIDE RECORDS SUMMARY | 2024-11-11 09:06 | XMS_ITS | Encounter Summary ---
Author Organization [employer] Address [address] [facility] 7t [place] [address] Care Team Providers Care Sports Writer Name Role Phone Rosa Lebron MD Primary Care Provider [phone] Encounter Details Date Type Department Care Team (Late st Contact Info) Description 10/12/2024 Orders Only [facility] [address] [place] [address] Telma Hammond MD [address] [place] [address] Acute cough (Primary Dx) Social History Tobacco [...] Description 04/30/2025 1:00 PM EDT Office Visit [facility] [address] [place] [address] Marine Harrell documented as of this encounter Visit Diagnoses Diagnosis Acute cough- Primary documented in this encounter Additional Health Concerns Assessment Noted Time PHQ-9 Depression Total Score: 24 024 3:43 PM EDT documented as of this encounter Care Teams Sports Writer Relationship Specialty Start Date End Date Rosa Lebron MD [address] [place] [address] PCP - General Family Medicine 03/22/21 Susan Yañez Consulting Physician Hematology and Oncology 07/09/24 Santos Mcleod Nurse Practitioner Urology 07/09/24 documented as of this encounter
--- OUTSIDE RECORDS SUMMARY | 2024-11-11 09:07 | XMS_ITS | Clinical Summary ---
Author Organization [employer] Address [address] [facility] [address] [place] [address] Care Team Providers Care Machine Maintenance Technician Name Role Phone Rosa Lebron MD Primary [...] day at the same time. 30 patch Active Additional Information Patient not taking.Reported on [...] via telemedicine. She may be moving to [place], [place]. Anxiety 02/19/2022 Assessment & Plan (09/03/2022 9:57 PM EST): Patient with depressed mood, reports her therapist from [facility] is working on getting her a prescriber. She reports not sleeping, at this moment, will increase her seroquel to 150 mg and f/u via telemedicine in 2 weeks. Reports that she does not feel comfortable coming to [facility], she is considering switching to another facility, [...] Center 09/26/2023 1:30 PM Rosa Lebron MD [facility] Encounters Date Type Department Care Team Description 10/30/2024 Patient Outreach [facility] [address] [place] [phone] Rosa Lebron MD Care Coordination (C3CM/RA Le initial assessment rescheduled ) 10/30/2024 Orders Only GENERIC EXTERNAL DATA DEPARTMENT Provider, Generic External Data 10/26/2024 11:00 AM EDT Office Visit [facility] [address] [place] [address] Shayla Harrellna 10/23/2024 Patient Outreach [facility] [address] [place] [id number] Rosa Lebron MD Care Coordination (C3CM/RA Le reschedule assessment_lvm ) 10/16/2024 Patient Outreach [facility] [address] [place] [phone] Rosa Lebron MD Care Coordination (Outreach) 10/13/2024 1:30 PM EDT Office Visit [facility] [address] [place] [address] Jame, Lorri, OD Presbyopia (Primary Dx) 10/12/2024 11:15 AM EDT Office Visit [facility] [address] [place] [address] eTlma Hammond MD Urinary tract infection with hematuria, site unspecified (Primary Dx); Acute cough; Smoking trying to quit 10/12/2024 Orders Only [facility] [address] [place] [phone] Telma Hammond MD Acute cough (Primary Dx) 10/12/2024 Telephone [facility] [address] [place] [address] Rosa Lebron MD Medication Question 10/12/2024 Travel 10/06/2024 1:40 PM EDT Office Visit [facility] [address] [place] [address] Rachele Zamora MD Recurrent UTI (Primary Dx); Primary hypertension 10/06/2024 Telephone [facility] [address] [place] [address] Rosa Lebron MD ER Follow-up 10/02/2024 Population Health Risk Score [facility] () Department [address] [place] [phone] Provider, Population Health Generic 10/02/2024 Patient Outreach [facility] [address] [place] [address] Rosa Lebron MD Care Coordination (Outreach) 09/02/2024 2:00 PM EST Office Visit [facility] [address] [place] [address] Jame, Lorri, OD Normal eye exam (Primary Dx); Presbyopia 09/02/2024 Travel from Last 3 Months Immunizations Name Administration [...] your housing situation today? I have paco sing 10/02/[address] you li [...] Office Visit [facility] [address] [place] [address] Marine Harrell Health Maintenance Due Date Last [...] Procedure Name Priority Date/Time Associated Diagnosis Comments URINALYSIS, COMPLETE Routine 10/30/2024 9:50 AM EDT CULTURE, URINE, ROUTINE Routine 10/30/2024 9:50 AM EDT PERIODIC ORAL EVALUATION - ESTABLISHED [...] Recently Relevant to Health Maintenance Results * Urinalysis Complete (10/30/2024 9:50 AM EDT) Color Urine Yellow [facility] Appearance Urine Clear [facility] PH 6.5 5.0 - 9.0 [facility] Glucose Urine UA Negative Negative mg/dL [facility] Urine Blood Negative Negative [facility] Specific [place] - Urine 1.025 1.005 - 1.025 [facility] Urine Protein Negative Neg-Trace mg/dL [facility] Urine Ketones Trace Negative mg/dL [facility] Nitrite Urine Negative Negative [facility] Leukocyte Esterase Urine Negative Negative [facility] RBC Urine 0-2 0 - 2 /HPF [facility] Urine WBC 0-5 0 - 5 /HPF [facility] Urine Squamous Epithelial Cell 6-10 0 - 2 /HPF [facility] Urine Bacteria 1+ None Seen [facility] Hyaline Casts, Urine 0-2 0 - 2 /LPF [facility] 10/30/2024 9:50 AM EDT 10/30/2024 10:46 AM EDT Generic External Data Provider LAB URINE ORDERAB LES Final Result Performing Organization Address [facility]/ZIP Co de Phone Number [facility] [address] [place] [phone] * Culture, Urine, Routine (10/30/2024 9:50 AM EDT) Urine Urine specimen obtained by clean catch procedure / Unknown 10/30/2024 9:50 AM EDT 10/30/2024 10:46 AM EDT Comment:UACC Narrative [facility] - 10/31/2024 11:42 AM EDT Urine Culture No growth. Specimen Source: Urine clean catch Generic External Data Provider LAB MICROBIOLOGY - GENERAL ORDERABLES Final Result Performing Organization Address [facility]/ZIP Co de Phone Number [facility] [address] [place] [phone] * (ABNORMAL) Lipid Panel, Standard (07/27/2024 11:56 AM EST) Triglycerides 210(H) <150 mg/dL [facility] Comment:Desirable Triglyceri de: less than 150 mg/dLBorderline High Triglyceride 150-199 mg/dLHigh Triglyceride: 200-499 mg/dLVery High Triglyceride: greater than or equal to 5OO mg/dL Cholesterol 236(H) <200 mg/dL [facility] Comment:Desirable Cholestero l: less than 200 mg/dLBorderline High Cholesterol: 200-239 mg/dLHigh Cholesterol: greater than 239 mg/dL LDL Cholesterol Calculated 155(H) <100 mg/dL [facility] Comment:Desirable LDL: less than 100 mg/dLNear Optimal/Above Optimal LDL: 110- 129 mg/dLBorderline High LDL: 130-159 mg/dLHigh LDL: 160-189 mg/dLVery High LDL: greater than or equal to 190 mg/dL HDL Cholesterol 39(L) >40 mg/dL [facility] Comment:Desirable HDL: great er than 40 mg/dL Note: This HDL assay may give artificially low results in patients with liver disease. Blood Venous blood specimen / Unknown 07/27/2024 11:56 AM EST 07/27/2024 11:56 AM EST us Rosa Lebron MD LAB BLOOD ORDERABLES Final Re sult [facility] [address] [place] [address] [phone] * BI Mammogram Screening Tomosynthesis Bilateral (07/06/2024 12:38 PM EST) Anatomical Region Laterality Modality Breast Bilateral Mammography 07/06/2024 12:3 8 PM EST Narrative 07/16/2024 11:22 AM EST ? [facility] ? [address] ?[place] [address] ? Mammography Report ? Signed ? Patient: Dino,Arely ?MR#: [id number] ? : 1975 ?Acct:[id number] ? Age/Sex: 49 / F ?ADM Date: 12/16/24 ? Loc: HO.MAMMO ? Attending Dr: Rosa Lebron MD ? Ordering Physician: Rosa Lebron MD ?Results: 1Nega ?? tive ? Date of Service: 12/16/24 ?Follow Up: 1 Year From Orig ?? inal Mammogram ? Procedure(s): MM tomosynthesis screening BI ?? Accession Number(s): [id number] ? cc: Rosa Lebron MD ? EXAMINATION: [...] ??Ileana Dunne DO ??07/16/2024 11:19 AM EST ?? RP ? Dictated By: ?Ileana Dunne DO ? Signed By: ?<Electronically signed by Ileana Dunne, DO in OV> ? 07/16/24 1119 ? DD/ 1238 ? TD/TT: 07/06/24 1255 ? Material Manager: ? Procedure Note Lakshmi, Ulisses - 07/16/2024 [facility] [address] [place] [address] [place] [address] Mammography Report Signed Patient: Jesus Sun#: [id number] : 1975Acct:[id number] Age/Sex: 49 / FADM Date: 07/06/24 Loc: HO.MAMMO Attending Dr: Rosa Lebron MD Ordering Physician: Rosa Lebron MDResults: 1Nega tive Date of Service: 07/06/24Follow Up: 1 Year From Orig inal Mammogram Procedure(s): MM tomosynthesis screening BI Accession Number(s): [id number] cc: Rosa Lebron MD EXAMINATION: MM SCREENING [...] 07/16/24 1119 DD/ 1238 TD/TT: 07/06/24 1255 Material Manager: us Rosa Lebron MD IM BI PROCEDURES Final Resul t * Cologuard?? colon cancer screening (09/12/2023 7:40 AM EST) Cologuard Result Negative Negative 09/20/19 1:22 AM EST [facility] (CLIA #:[id number]) Comment: NEGATIVE TEST RESULT. A negative Cologuard [...] cancer. ??Following a negative Cologuard result, the [place] Cancer Society and U.S. Multi-Society Task Force screening guidelines recommend a Cologuard re-screening interval of 3 years. References: [place] Cancer Society Guideline for Colorectal Cancer Screening: https://www.cancer.org/cancer/umrta-jnkstb-dermrq/akzfszvps-obxvrobrz-qwltlrg/ac s-rec ommendations.html.; Yomi DK, Christine REID, Delores SpringerK, Colorectal Cancer Screening: Recommendations for Physicians and Patients from the U.S. Multi-Society Task Force on Colorectal Cancer Screening , Am J Gastroenterology 2017; 112:8427-1986. TEST DESCRIPTION: Composite algorithmic analysis of stool [...] (Sharon Olvera al, N Engl J Med 2014;370(14):2893-1588.) Cologuard may produce a false negative or false positive result (no colorectal cancer or precancerous polyp present at colonoscopy follow up). A negative Cologuard test result does not guarantee the absence of CRC or advanced adenoma (pre-cancer). The current Cologuard screening interval is every 3 years. ([place] Cancer Society and U.S. Multi-Society Task Force). Cologuard performance data in a 10,000 patient pivotal study using colonoscopy as the reference method can be accessed at the following location: www.[employer]/results. Additional description of the Cologuard test process, warnings and precautions can be found at www.[employer]. Stool specimen (specimen) 09/12/2023 7:40 AM EST 09/13/2023 11:11 AM EST us Rosa Lebron MD LAB MOLECULAR DIAGNOSTICS ORD ERABLES Final Result [facility] (CLIA #:[id number]) [place] [address], * HPV mRNA E6/E7 w/Reflex to HPV Genotypes 16, 18/45 (07/30/2022 2:13 PM EST) HPV nRNA E6/E7 Not Detected Not Detected [facility] Comment:Methodology: Transcr iption-Mediated AmplificationThis assay detects E6/E7 viral messenger RNA (mRNA) from 14high-risk HPV types (16,18,31,33,35,39,45,51,52,56,58,59,66,68).Cervical sources are required for HPV testing.If a vaginal source from a patient who has had atotal hysterectomy with removal of cervix wassubmitted, please contact the testing laboratoryfor alternative testing options.For additional information, please refer tohttp://education.questdiagnostics.com/faq/TMP430a1(This link if provided for information/educational purposes only.)THIS TEST WAS PERFORMED AT:[facility] [address] ([address])[place] [address]TGKDCKEARA VASQUEZ MD HPV mRNA E6/E7 TNP [facility] HPV 16 RNA TNP [facility] HPV 18/45 RNA TNP [facility] 07/30/2022 2:13 PM EST 07/30/2022 4:30 PM EST us [facility] External Provider LAB CYT OLOGY ORDERABLES Final Result [facility] [address] [place] [address] [phone] * Pap Smear (07/30/2022 2:13 PM EST) 07/30/2022 2:13 PM EST 07/30/2022 4:30 PM EST Narrative [facility] - 08/06/2022 1:00 PM EST ----- ------- Name: Arely Sun ? Age/Sex: 47/F ? : 1975 Unit#: [id number] ?? Attend Dr: Shital Hummel CNM ?Re07/30/22 ?Status: DEP REF ? Location: HO.LNP ?Disch: ? ----- ------- SPEC : [id number] ?RECD: 07/30/22 ? STATUS: ??SOUT ? REQ NUM: [id number] ? SALVADOR: 07/30/22 ? SUBM DR: Shital Hummel ? ENTERED: ??07/30/22 ?SP TYPE: Pap Smr [...] 66, 68) ? HPV testing performed by [facility], [place], [place]. ??See reference laboratory ?? portion of the EMR for entire report. ?Clinical Information LMP: Not sure Previous PAP test: 06/27/21, WNL ? Material Received ?? ThinPrep-Cervical Copies To: ?? Shtial Hummel CNM ?? [address] [facility] ?? [place] [address] ?? [phone] ?? Rosa Lebron MD ?? [address] ?? [place] ?? [phone] ----- ------- Signed (signature on file) Rosa Gavin 08/06/22 1300 ? ----- ------- ? END OF REPORT ? us [facility] External Provider LAB CYT OLOGY ORDERABLES Final Result [facility] [address] [place] [address] [phone] * HEPATITIS C AB W/REFL TO HCV RNA, QN, PCR (02/21/2022 10:32 AM EDT) HEPATITIS C ANTIBODY NON-REACT LA NON-REACT LA [facility] INDEX 0.11 <1.00 [facility] Comment: ?? HCV antibody was non-reactive. There is no laboratory ?? evidence of HCV infection. ?? In most cases, no further action is required. However, if recent HCV exposure is suspected, a test for HCV RNA (test code 28983) is suggested. ?? For additional information please refer to http://[employer]Highway.[employer]/faq/DED68l0 (This link is being provided for informational/ educational purposes only.) ?? 02/21/2022 10:3 2 AM EDT Rosa Lebron MD HISTORICAL/NON ORDERABLE LABS Final Result Performing Organization Address City/State/[facility] Co de Phone Number [facility] [address] * HIV 1/2 ANTIGEN/ANTIBODY,FOURTH GENERATION W/RFL [...] ? For additional information please refer to http://EducationSuperHighway.Todacell/faq/QUQ921 (This link is being provided for informational/ educational purposes only.) ? The performance of this assay has not been clinically validated in patients less than 2 years old. ?? 02/21/2022 10:3 2 AM EDT us Rosa Lebron MD LAB BLOOD ORDERABLES Final Re sult [facility] [address] from Last 3 Months or Most Recently Relevant to Health Maintenance Insurance [facility] C3 DENTAL-[facility] MEDICAID STAND ADULT Care Teams Machine Maintenance Technician Relationship Specialty Start Date End Date Rosa Lebron MD [address] [place] [address] PCP - General Family Medicine 03/22/21 Susan Yañez Consulting Physician Hematology and Oncology 07/09/24 [facility] Nurse Practitioner Urology 07/09/24
[2024-11-13 12:13] VITALS: BMI 27.6
--- NOTE | 2024-11-16 12:19 | P.CONAN_ITS ---
Documented by User: Amparo Bryant NP 11/16/24 12:20 HPI - Anesthesia Eval Consult details Narrative: 49yo F for Cystoscopy with Bulkamid PMFSH Active Problems Active Problems: All Active Problems Hot flashes (Acute) Well woman exam (Acute) Menopause (Acute) Stress incontinence (Acute) Complex ovarian cyst (Acute) Perimenopause (Acute) Urinary retention with incomplete bladder emptying (Acute) History of tubal ligation (Acute) Cervical cancer screening (Acute) Screen for sexually transmitted diseases (Acute) Women's annual routine gynecological examination (Acute) Thrombocytosis (Chronic) Unsatisfactory cervical Papanicolaou smear (Acute) Abnormal uterine bleeding (AUB) (Acute) Stiffness of left hand joint (Acute) Fracture of fifth metacarpal bone of left hand (Acute) Bleeding hemorrhoids (Acute) Hemorrhoid (Acute) Past Medical History Medical History History of anxiety Bleeding hemorrhoids Constipation Hemorrhoid Family History Family History Father Hx of tongue cancer Mother Alive and well Family history of problems with anesthesia: No Surgical History Surgical History H/O hand surgery History of tubal ligation History of tonsillectomy History of Problems with Anesthesia: No Social History Social History Household Members: Family Housing: Apartment Are you a primary primary care sales representative to a significant other at home: No Do you presently have visiting nurse or other home services: No Alcohol intake: never Patient Tobacco Use Status: Current everyday Tobacco user Tobacco use type: Cigarette Cigarette Packs Per Day: 4 Years Smoked: 20+ Advance Directives: No Advance Directives Information Provided: Yes service: No Current occupational status: disabled Meds Allergies Allergy/AdvReac Type Severity Reaction Status Date / Time No Known Allergies Allergy Verified 11/17/24 11:47 [No Known Allergies*] Home Medications ?Medication ?Instructions ?Recorded ?Confirmed ?Last Taken ?Type blood pressure test kit-large #1 ea 07/30/22 11/17/24 11/15/24 History rosuvastatin 10 mg tablet 10 mg PO DAILY 07/30/22 11/17/24 11/15/24 History Exam Height,Weight and Vital Signs: Height 5 ft 3 in Weight 70.76 kg Assessment and Plan Assessment Anesthesia Assessment: Chart Reviewed Final Anesthetic Review Family History of Problems with Anesthesia: No History of Problems with Anesthesia: No Documented by User: Rebecca Albarado MD 11/17/24 11:59 PMFSH Past Medical History Medical History History of anxiety Bleeding hemorrhoids Constipation Hemorrhoid Family History Family History Father Hx of tongue cancer Mother Alive and well Surgical History Surgical History H/O hand surgery History of tubal ligation History of tonsillectomy Social History Social History Household Members: Family Housing: Apartment Are you a primary primary care sales representative to a significant other at home: No Do you presently have visiting nurse or other home services: No Alcohol intake: never Patient Tobacco Use Status: Current everyday Tobacco user Tobacco use type: Cigarette Cigarette Packs Per Day: 4 Years Smoked: 20+ Advance Directives: No Advance Directives Information Provided: Yes service: No Current occupational status: disabled Meds Allergies Allergy/AdvReac Type Severity Reaction Status Date / Time No Known Allergies Allergy Verified 11/17/24 11:47 [No Known Allergies*] Home Medications ?Medication ?Instructions ?Recorded ?Confirmed ?Last Taken ?Type blood pressure test kit-large #1 ea 07/30/22 11/17/24 11/15/24 History rosuvastatin 10 mg tablet 10 mg PO DAILY 07/30/22 11/17/24 11/15/24 History Exam Airway Mallampati Class: II TM Dist: >3cm Loose/Missing/Broken Teeth: Yes and Upper Assessment and Plan Assessment Anesthesia Assessment: Anesthesia Plan Discussed Final Anesthetic Review NPO: Yes ASA Class: II Final Preanesthetic Review: No Changes in Pt Med Stat, Meds/Allgs Chart Reviewed, Consent Obtained/Reviewed and Anes Risks/Benef Reviewed Patient Risk: Low Procedure Risk: Low Anesthetic Plan Anesthetic Plan: TIVA Disposition: Standard PACU
[2024-11-17] VITALS (9 sets, daily range): BP systolic 105–166; BP diastolic 62–77; PULSE 51–65; RESP 14–16; TEMP 36.6–36.7; O2SAT 96–98; BMI 26.9
[2024-11-17] MEDS: Lactated Ringers 1,000 ML 100 ML IVCONT (12:17)
--- NOTE | 2024-11-17 12:25 | W.PM.OPN ---
Operative Note Operative Note Date of Service: 11/17/24 Narrative: Preop diagnosis: Intrinsic sphincter deficiency Postop diagnosis: Intrinsic sphincter deficiency Procedure: Cystoscopy urethral bulking with bulkamid system at the proximal urethra Surgeon: Dr. Adan Swan Details of procedure: The patient was brought into the operating room placed on the OR table in supine position IV sedation was administered. Antibiotics confirmed. The patient was placed in lithotomy position prepped and draped in the usual sterile fashion. Safety time-out was done. A 14 [place]an straight catheter was used to send urine for culture. 2% lidocaine jelly was inserted transurethrally 10 mL. Meg urethral local administered with 1% lidocaine 5 mL at the 3 o'clock position, 5 mL at the 9 o'clock position. Using the 0 degree 11 cm cystoscope with the light cord in the 6 o'clock position, the bladder was filled with sterile water to 150 mL the bladder was visualized. With the sheath at the 5 o'clock position the needle was inserted to the 1 cm irving and 0.5 mL of gel was injected there was good bulking noted. This was repeated on the 7 o'clock position. The 2nd needle was inserted into the sheath and an injection was done at the 2 o'clock position and again at the 11 o'clock position. There was bulking of the mucosa noted with good coaptation. The cystoscope was removed. A 12 [place]an pediatric catheter was placed to drain the bladder 200 mL was drained out of the bladder. The patient tolerated the procedure and was taken to recovery in stable condition. Complication: none EBL: minimal (<5 mL) Drains: none
--- NOTE | 2024-11-17 12:26 | MHC.SHP ---
Pre-Procedural Eval Section A - 24 Hr Update-Section A only Date of Service: 11/17/24 The patient is an INPATIENT: No The patient has been examined within 24 hours of the surgical procedure. The History & Physical has been completed within 30 days and I have reviewed it.: Yes Section B - Complete if H&P > 30 days Chief Complaint: Stress incontinence, ISD Allergies: Allergies Allergy/AdvReac Type Severity Reaction Status Date / Time No Known Allergies Allergy Verified 11/17/24 11:47 [No Known Allergies*] Plan Diagnosis/Plan: Unchanged I have reviewed the history and physical and performed a pertinent physical examination on my patient. No changes have occurred unless specified. Cystoscopy. Urethral Bulking, Bulkamid. Time Spent With Patient Time: Total time managing care of this patient today ____ minutes.
[2024-11-17] MEDS: ceFAZolin Sodium/Dextrose,Iso 2 GM/50 ML PIGGYBACK IV (12:45)
== END 2024-11-17 15:45 | disposition home or self-care (01) ==
PROVIDERS: PCP Family Medicine; Visit Provider Urology
PROC: (CPT 51715; principal; 2024-11-17 13:00)
DX: N36.42 Intrinsic sphincter deficiency (ISD) (principal); N39.46 Mixed incontinence; Z79.899 Other long term (current) drug therapy; Z98.51 Tubal ligation status; F17.210 Nicotine dependence, cigarettes, uncomplicated
CPT/HCPCS: 51715; 87086; J0690; J2003; J2371; J2405; J2704; J3010; L8606

== ENCOUNTER → 2024-11-17 11:17 | Outpatient (BNV) | payer MEDICAID, SELFPAY | PROVIDERS: PCP Family Medicine; Visit Provider Urology | DX: N36.42 Intrinsic sphincter deficiency (ISD) (principal) | CPT/HCPCS: 51715 ==

== ENCOUNTER 2025-02-08 17:38 | Outpatient (REF) | payer MEDICAID, SELFPAY ==
--- OUTSIDE RECORDS SUMMARY | 2025-02-08 17:40 | XMS_ITS | Clinical Summary ---
Author Organization [facility] Address [address] [address] Phone Care Team Providers Care Personnel Clerk Name Role Phone Pcp, Unknown Primary Care Provider Unavailabl e Allergies No known active allergies Medications ondansetron (ZOFRAN-ODT) 4 MG disintegrating tablet (To-Go) Take 1-2 tablet(s) by mouth every 8 hours as needed for nausea/vomi ting 6 tablet Active Immunizations Immunization Administration Dates Next Due COVID-19 (Pre-05/13) Moderna Vaccine, mRNA, PF 0 03/12/2022,02/12/2022 Hepatitis B Adult 03/27/2022,02/05/2022 Influenza Quadrivalent Preservative Free IM 12/2022 Influenza Trivalent Preservative Free IM 024 Influenza, Unspecified Formulation 05/23/2022 MMR 03/27/2022,02/05/2022 Tdap 08/15/2015 Social History Tobacco Use Types Packs/Day Years Used Date Smoking Tobacco: Never Assessed Education Answer Date Recorded Are you interested in more education? Not on mary e 02/20/2023 Are you concerned about learning? Not on file 02/20/2023 No 02/20/2023 No 02/20/2023 Digital Access Answer Date Recorded No 02/20/2023 No 02/20/2023 Reliable internet access at home? Not on file 02/20/2023 Device with a working camera? Not on file Intimate Partner Violence Answer Date R ecorded Are you denied basic needs s uch as food, clothing, or medical care? No 10/01/2024 In the past 12 months have y ou been in a relationship with a person who hurts, threatens, or tries to control you? No 10/01/2024 Are you denied basic needs s uch as food, clothing, or medical care? No 10/01/2024 In the past 12 months have y ou been in a relationship with a person who hurts, threatens, or tries to control you? No 10/01/2024 Comments Unknown Sex and Gender Information Value Date Recorded Sex Assigned at Female 10/01/2024 8:08 PM EDT Legal Sex Female 2:39 PM EDT Gender Identity Female 10/01/2024 8:07 PM EDT Sexual Orientation Don't know 10/01/2024 8: 08 PM EDT Last Filed Vital Signs Vital Sign Reading Time Taken Comments Blood Pressure 152/97 10/01/2024 11:29 PM EDT Pulse 71 10/01/2024 11:29 PM EDT Temperature 36.8 C (98.2 F) 10/01/2024 11:29 PM EDT Respiratory Rate 16 10/01/2024 11:29 PM EDT Oxygen Saturation 98% 10/01/2024 11:29 PM EDT Inhaled Oxygen Concentration - - Weight 63.5 kg (140 lb) 10/01/2024 6:08 PM EDT Height 160 cm (5' 3 ) 10/01/2024 6:08 PM EDT Body Mass Index 24.8 10/01/2024 6:08 PM EDT Plan of Treatment Health Maintenance Due Date Last Done Comments DEPRESSION SCREENING 1989 SMOKING Hx and SMOKELESS TOBACCO SCREENING 1990 HEPATITIS C SCREENING 1995 HIV ONE-TIME SCREENING (18-6 5 YEARS) 1995 COLOGUARD 2022 COLONOSCOPY 2022 COLORECTAL CANCER SCREENING 2022 FIT TEST 2022 FOBT 2022 SIGMOIDOSCOPY 2022 VIRTUAL COLONOSCOPY 2022 COVID-19 VACCINE (2023-2 5 season) 2024 03/12/2022, 02/12/2022 MAMMOGRAM 05/24/2025 05/24/2023 PAP SMEAR 07/30/2025 07/30/2022 Adult Td,Tdap Booster 08/15/2025 08/15/2015 LIPID PANEL 07/27/2029 07/27/2024 PNEUMOCOCCAL VACCINES (0-49 years) Aged Out 08/15/2016 No longer eligible b ased on patient's age to complete this topic HEPATITIS A VACCINES Aged Out No long er eligible based on patient's age to complete this topic HIB VACCINES Aged Out No longer eligi ble based on patient's age to complete this topic MENINGOCOCCAL VACCINES (ACWY) Aged Out No longer eligible based on patient's age to complete this topic MENINGOCOCCAL VACCINES (B) Aged Out N o longer eligible based on patient's age to complete this topic Medical Devices Not on file Insurance C3 ACO C3 ACO C3 ACO C3 ACO Care Teams Personnel Clerk Relationship Specialty Start Date End Date Pcp, Unknown PCP - General 02/22/23 Additional Source Comments The information contained in this document represents components of the legal health record. It is not the complete legal health record.[facility]
[2025-02-09 01:41] LABS: CT PCR Urine NOT DETECTED (Not Detect.); NG PCR Urine NOT DETECTED (Not Detect.)
== END 2025-02-08 17:39 | disposition home or self-care (01) ==
LOC: HO.LNP 17:38
PROVIDERS: Visit Provider Family Medicine
DX: Z11.3 Encounter for screening for infections with a predominantly sexual mode of transmission (principal)
CPT/HCPCS: 87491; 87591

== ENCOUNTER 2025-02-12 12:33 | Outpatient (REF) | payer MEDICAID, SELFPAY ==
--- NOTE | ~2025-02-12 | XR_ITS ---
EXAMINATION: XR CHEST CLINICAL INFORMATION: 49 yo F with intermittent cough and hx of smoking, send to [facility] COMPARISON: April 10, 2019. TECHNIQUE: 2 views of the chest were obtained. FINDINGS: No consolidation, pleural fissure pneumothorax. No hyperinflation. Cardiomediastinal silhouette size is normal. 10% superior endplate compression deformities, old, thoracic spine. S-shaped curvature of the thoracolumbar spine. XR/XR chest 2V IMPRESSION: No acute airspace disease. Mild scoliosis, thoracolumbar spine. Electronically signed by: Joe Cabrera MD 02/12/2025 01:16 PM EDT
--- OUTSIDE RECORDS SUMMARY | 2025-02-12 12:36 | XMS_ITS | Encounter Summary ---
Author Organization [employer] Address [address] [facility] [address] [place] [address] Care Team Providers Care Hydrogen Braze Furnace Operator Name Role Phone Rosa Lebron MD Primary Care Provider [phone] Encounter Details Date Type Department Care Team (Late Contact Info) Description 04/16/2023 Orders Only [facility] MEDICINE [address] [place], [place] [id number] Provider, MD Nano Social History Tobacco Use [...] Care Team (Late st Contact Info) Description 02/24/2025 2:00 PM EDT Office Visit [facility] ADULT DENTAL [address] [place] [address] Roberto Zaman [address] [place] [address] 04/30/2025 1:00 PM EDT Office Visit [facility] ADULT DENTAL [address] [place] [address] Marine Harrell documented as of this encounter Procedures Procedure Name Priority Date/Time Associated Diagnosis Comments PAP/HPV Routine 05/15/2021 documented in this encounter Results * Hm Pap Smear (05/15/2021) us Historical Provider HEALTH MAINTENANCE Final Result documented in this encounter Visit Diagnoses Not on filedocumented in this encounter Additional Health Concerns Assessment Noted Time PHQ-9 Depression Total Score: 12 023 2:24 PM EST documented as of this encounter Care Teams Hydrogen Braze Furnace Operator Relationship Specialty Start Date End Date Rosa Lebron MD [address] [place] [address] PCP - General Family Medicine 03/22/21 Susan Yañez Consulting Physician Hematology and Oncology 07/09/24 Santos Mcleod Nurse Practitioner Urology 07/09/24 Rose Benítez Personnel Security SpecialistLoss Control Engineer 12/23/24 documented as of this encounter
--- OUTSIDE RECORDS SUMMARY | 2025-02-12 12:36 | XMS_ITS | Clinical Summary ---
Author Organization [facility] Address [address] [address] Phone Care Team Providers Care Egg Packer Name Role Phone Pcp, Unknown Primary Care [...] ACO C3 ACO C3 ACO Care Teams Egg Packer Relationship Specialty Start Date End Date Pcp, Unknown PCP - General 02/22/23 Additional Source Comments The information contained in this document represents components of the legal health record. It is not the complete legal health record.[facility]
[2025-02-12 14:05] LABS: HBS Num1 53.67 mIU/mL (0-7.99); HIV Num 1 0.07 S/CO (0.00-0.99); Syphilis Screen Nonreactive (Nonreactive); ~HepC Num1 0.09 S/CO (0.00-0.79); ~Hepatitis B Surface Antibody REACTIVE (Nonreactive); ~Hepatitis C Antibody Nonreactive (Nonreactive)
== END 2025-02-12 12:34 | disposition home or self-care (01) ==
LOC: HO.XRAY 12:33
PROVIDERS: PCP Family Medicine; Visit Provider Family Medicine
DX: Z11.3 Encounter for screening for infections with a predominantly sexual mode of transmission (principal); Z11.4 Encounter for screening for human immunodeficiency virus [HIV]; Z11.59 Encounter for screening for other viral diseases; R05.1 Acute cough; Z87.891 Personal history of nicotine dependence
CPT/HCPCS: 36415; 71046; 86706; 86780; 86803; 87389

== ENCOUNTER → 2025-02-12 12:54 | Outpatient (BNV) | payer MEDICAID, SELFPAY | PROVIDERS: PCP Family Medicine; Visit Provider Radiology Diagnostic Radiology | DX: R05.3 Chronic cough (principal) | CPT/HCPCS: 71046 ==

== ENCOUNTER 2025-02-17 12:44 | Outpatient (AMB) | payer MEDICAID, SELFPAY ==
--- NOTE | 2025-02-17 13:10 | A.OFFVIS_ITS ---
Intake Visit Reasons: KARL/Bulkamid f/u Intake Note: Patient presents for KARL/Bulkamid follow up Urology Medications: none Blood Thinner: none Retail Service Technician Required: No Accompanied by: Self / Same As Patient Allergies No Known Allergies (No Known Allergies*) Allergy (Verified 02/17/25 13:11) Medication List - Last Reconciled 02/17/25 by Adan Swan MD blood pressure test kit-large As directed citalopram 20 mg PO DAILY 90 days doxycycline hyclate 100 mg PO BID 3 days doxycycline hyclate 100 mg PO BID 3 days rosuvastatin 10 mg PO DAILY sulfamethoxazole-trimethoprim 800-160 mg (Bactrim DS) 1 tab PO BID 5 days HPI Comments Details: 02/17/25-- History of Present Illness - The patient is a 49-year-old female presenting with stress urinary inco ntinence and burning sensation during urination. - Stress urinary incontinence: The patient reports a reduction in leaking episodes but still requires the use of a pad. She estimates an improvement of over 50% following the urethral bulking procedure with Bulkamid performed on 11/17/24. - Burning sensation during urination: The patient has recently experienced this symptom, and empirical treatment with Bactrim DS has been initiated pending urine culture results. Results - Urinalysis: Negative for infection Plan Repeat Bulkamid urethral bulking Initiate empirical treatment with Bactrim DS for burning sensation during urination, pending urine culture results. 10/30/24--Arely is here for urodynamics. The patient has complaints of urinary incontinence. Interpretation: During the filling phase there was normal sensation, without detrusor overactivity during the filling phase. Leakage was observed during cough/ valsalva stress. Findings consistent with ISD. EMG- Appropriate changes in the waveforms were noted through out the study. Plan Bulkamid 08/03/24--Arely is a very pleasant 49-year-old female patient of Dr. Lebron. She has a past medical history of anxiety, hemorrhoids, and constipation. She presents to the office today for follow-up of her ongoing lower urinary tract symptoms. In discussion with the patient today she reports no improvement in mixed urinary incontinence with trial of Myrbetriq 25 mg daily. She has also previously trialed oxybutynin with no improvement. Previous workup has included a retroperitoneal ultrasound 02/11 noting bilateral kidneys with no renal calculi or lesions noted. The bladder is well distended and normal. Bladder ureteral jets are demonstrated. Pre void bladder volume is approximately 330 mL. Postvoid bladder volume is approximately 10 mL. She has a history of 3 vaginal births of 3 large babies weighing approximately 9-10 lb. She reports labors were short. She otherwise denies nocturia, hematuria, dysuria, foul smelling urine, changes to urinary stream, flank pain, fever, and or chills. She does have a history of nicotine dependence. In office urinalysis results reviewed with the patient today. She reports feeling stress incontinence to be most bothersome. We discussed further treatment options to include pelvic floor therapy, trial of a different medications, and or urodynamics for further assessment evaluation. She otherwise offers no other issues or concerns at this time. [facility] Medical History History of anxiety Bleeding hemorrhoids Constipation Hemorrhoid Surgical History H/O hand surgery History of tubal ligation History of tonsillectomy Family History Father Hx of tongue cancer Mother Alive and well Social History Household Members: Family Housing: Apartment Are you a primary personal care aid to a significant other at home: No Do you presently have visiting nurse or other home services: No Alcohol intake: never Patient Tobacco Use Status: Current everyday Tobacco user Tobacco use type: Cigarette Cigarette Packs Per Day: 4 Cigarettes Per Day: 6 Years Smoked: 20+ service: No Current occupational status: disabled Female Reproductive History Menstrual Age of Menarche: 14 Results AMB Urinalysis, Automated UA Leukoctes 70 Juarez/uL Last Edit by Myrna Jean Baptiste on 02/17/25 16:39 UA Nitrite Negative Last Edit by Myrna Jean Baptiste on 02/17/25 16:39 UA Urobilinogen 3.5 mg/dL Last Edit by Myrna Jean Baptiste on 02/17/25 16:39 UA Protein 0 mg/dL Last Edit by Myrna Jean Baptiste on 02/17/25 16:39 UA pH 6.0 Last Edit by Myrna Jean Baptiste on 02/17/25 16:39 UA Blood 0 Jalil/uL Last Edit by Myrna Jean Baptiste on 02/17/25 16:39 UA Specific Freedom 1.020 Last Edit by Myrna Jean Baptiste on 02/17/25 16:39 UA Ketone Negative Last Edit by Myrna Jean Baptiste on 02/17/25 16:39 UA Bilirubin 0 mg/dL Last Edit by Myrna Jean Baptiste on 02/17/25 16:39 UA Glucose 0 mg/dL Last Edit by Myrna Jean Baptiste on 02/17/25 16:39 Assessment & Plan Assessment & Plan Plan Repeat Bulkamid urethral bulking Initiate empirical treatment with Bactrim DS for burning sensation during urination, pending urine culture results. Orders: Orders Urine Culture Today R33.9 - Retention of urine, unspecified AMB Urinalysis Automated Today Z13.9 - Encounter for screening, unspecified Medications: New sulfamethoxazole-trimethoprim 800-160 mg (Bactrim DS) 1 tab PO BID 5 days 10 tabs 0RF Coding
--- OUTSIDE RECORDS SUMMARY | 2025-02-17 13:18 | XMS_ITS | Encounter Summary ---
Author Organization [employer] Address [address] [facility] 7t [place] [address] Care Team Providers Care Digital Media Coordinator Name Role Phone Rosa Lebron MD Primary Care Provider [phone] Encounter Details Date Type Department Care Team (Late Contact Info) Description 04/16/2023 Orders Only [facility] MEDICINE [address] [place] [address] Provider, MD Nano Social History Tobacco Use [...] Care Team (Late st Contact Info) Description 03/16/2025 9:00 AM EDT Office Visit [facility] ADULT DENTAL [address] [place] [address] Roberto Zaman [address] [place] [address] 04/30/2025 1:00 PM EDT Office Visit [facility] ADULT DENTAL [address] [place] [address] Marine Harrell documented as of this encounter [...] documented as of this encounter Care Teams Digital Media Coordinator Relationship Specialty Start Date End Date Rosa Lebron MD [address] [place] [address] PCP - General Family Medicine 03/22/21 Susan Yañez Consulting Physician Hematology and Oncology 07/09/24 Santos Mcleod Nurse Practitioner Urology 07/09/24 Rose Benítez Sales Planning ManagerVice President Of Business Development 12/23/24 documented as of this encounter
--- OUTSIDE RECORDS SUMMARY | 2025-02-17 13:19 | XMS_ITS | Clinical Summary ---
Author Organization [facility] Address [address] [address] Phone Care Team Providers Care Operational Test Mechanic Name Role Phone Pcp, Unknown Primary Care [...] ACO C3 ACO C3 ACO Care Teams Operational Test Mechanic Relationship Specialty Start Date End Date Pcp, Unknown PCP - General 02/22/23 Additional Source Comments The information contained in this document represents components of the legal health record. It is not the complete legal health record.[facility]
== END 2025-02-17 13:43 | disposition home or self-care (01) ==
LOC: HO.HUSH 12:45
PROVIDERS: PCP Family Medicine; Visit Provider Urology
DX: Z13.9 Encounter for screening, unspecified (principal)

== ENCOUNTER 2025-02-17 12:44 | Outpatient (REF) | payer MEDICAID, SELFPAY | END 2025-02-17 12:45 | disposition home or self-care (01) | LOC: HO.LNP 12:44 | PROVIDERS: PCP Family Medicine; Visit Provider Urology | DX: R33.9 Retention of urine, unspecified (principal); Z13.89 Encounter for screening for other disorder; Z79.899 Other long term (current) drug therapy | CPT/HCPCS: 81003; 99212 ==

== ENCOUNTER 2025-02-22 16:42 | Outpatient (REF) | payer MEDICAID, SELFPAY ==
--- OUTSIDE RECORDS SUMMARY | 2025-02-22 16:44 | XMS_ITS | Encounter Summary ---
Author Organization [employer] Address [address] [facility] [address]t [place] [address] Care Team Providers Care Engagement Liaison Name Role Phone Rosa Lebron MD Primary Care Provider [phone] Encounter Details Date Type Department Care Team (Late Contact Info) Description 04/16/2023 Orders Only [facility] MEDICINE [address] [place] [address] Provider, MD Nano Social History Tobacco Use [...] Description 03/16/2025 9:00 AM EDT Office Visit [facility] ADULT DENTAL [address] [place] [address] Roberto Zaman [address] [place] [address] 04/30/2025 1:00 PM EDT Office Visit [facility] ADULT DENTAL [address] [place] [address] Marine Harrell documented as of this encounter [...] documented as of this encounter Care Teams Engagement Liaison Relationship Specialty Start Date End Date Rosa Lebron MD [address] [place] [address] PCP - General Family Medicine 03/22/21 Susan Yañez Consulting Physician Hematology and Oncology 07/09/24 Santos Mcleod Nurse Practitioner Urology 07/09/24 Rose Benítez Inspection ClerkDirector Of Product Development 12/23/24 documented as of this encounter
--- OUTSIDE RECORDS SUMMARY | 2025-02-22 16:45 | XMS_ITS | Clinical Summary ---
Author Organization [facility] Address [address] [address] Phone Care Team Providers Care Weight Guesser Name Role Phone Pcp, Unknown Primary Care [...] ACO C3 ACO C3 ACO Care Teams Weight Guesser Relationship Specialty Start Date End Date Pcp, Unknown PCP - General 02/22/23 Additional Source Comments The information contained in this document represents components of the legal health record. It is not the complete legal health record.[facility]
== END 2025-02-22 16:43 | disposition home or self-care (01) ==
LOC: HO.LAB 16:42
PROVIDERS: Visit Provider Urology
DX: N39.3 Stress incontinence (female) (male) (principal); R33.9 Retention of urine, unspecified
CPT/HCPCS: 87086; 87088; 87186

== ENCOUNTER 2025-03-30 13:27 | Outpatient (AMB) | payer MEDICAID, SELFPAY ==
[2025-03-30 13:48] VITALS: BMI 28.5
--- NOTE | 2025-03-30 13:48 | A.OFFVIS_ITS ---
Vital Signs 03/30/25 13:48 Height 5 ft 3 in Weight 161 lb BMI 28.5 Intake Visit Reasons: medication follow up/DO NOT RS Analytics Specialist Required: Yes Analytics Specialist Language: Supervisor Properties Services: Analytics Specialist Present (in person) Analytics Specialist Name: Katelyn HERNANDEZ Information Interpreted: non-clinical & clinical Accompanied by: Self / Same As Patient Allergies No Known Allergies (No Known Allergies*) Allergy (Verified 03/30/25 13:48) HPI Comments Details: Presenting for follow-up regarding hot flashes on citalopram 20 mg p.o. q.d.. The patient states that her hot flashes has improved markedly with no side effects noticed and is happy with the outcome, is requesting refill . [facility] Medical History History of anxiety Bleeding hemorrhoids Constipation Hemorrhoid Surgical History H/O hand surgery History of tubal ligation History of tonsillectomy Family History Father Hx of tongue cancer Mother Alive and well Social History Household Members: Family Housing: Apartment Are you a primary aged or disabled carer to a significant other at home: No Do you presently have visiting nurse or other home services: No Alcohol intake: never Patient Tobacco Use Status: Current everyday Tobacco user Tobacco use type: Cigarette Cigarette Packs Per Day: 4 Cigarettes Per Day: 6 Years Smoked: 20+ service: No Current occupational status: disabled Female Reproductive History Menstrual Age of Menarche: 14 Review of Systems Const All systems reviewed & are unremarkable except as noted in HPI and below Reports as per HPI and Reports no additional complaints GI Reports no additional complaints Reports no additional complaints Physical Exam Vital Signs: BMI result Body Mass Index 28.5 Assessment & Plan Assessment & Plan (1) Hot flashes: Code(s): R23.2 - [place] Category: Medical Plan: Citalopram 10 mg p.o. q.d. refill sent to the patient's pharmacy. Instructions given the patient to call in case of any concerns. All questions answered, the patient verbalized understanding. Medications: Refilled citalopram 20 mg PO DAILY 90 tabs 3RF 90 days R23.2 - [place] Coding Level of Care Code Est Pt Level 3 (54512) Diagnoses Hot flashes R23.2
--- OUTSIDE RECORDS SUMMARY | 2025-03-30 15:56 | XMS_ITS | Clinical Summary ---
Author Organization [employer] Address [address] [facility] [address] [place] [address] Care Team Providers Care Conservation Or Heritage Architect Name Role Phone Rosa Lebron MD Primary Care Provider [phone] Allergies No known active allergies Medications ferrous gluconate (Fergon) 324 (38 Fe) MG tablet Take 1 tablet (324 mg) by mouth with breakfast. 90 tablet 1 4 Active chlorhexidine (Peridex) 0.12 % solutionIndicat ions:Necrosis of dental pulp Swish 15 mL morning and night for 1 minute. Spit, do not swallow. Do not eat or drink for 30 minutes following use. 473 mL 4 Active ibuprofen 600 MG tabletIndicatio ns:Necrosis of dental [...] in 24 hours. 9 tablet 4 Active rosuvastatin (Crestor) 40 MG tablet Take 1 tablet (40 mg) by mouth Once per day. 90 tablet 1 5 Active amLODIPine (Norvasc) 10 MG tablet Take 1 tablet (10 mg) by mouth Once per day. 90 tablet 1 5 Active ibuprofen 600 MG tablet Take 1 tablet (600 mg) by mouth every 6 (six) hours if needed for mild pain for up to 20 doses. 20 tablet 5 Active hydrOXYzine pamoate (Vistaril) 25 MG capsule TAKE 1 CAPSULE BY MOUTH TWICE A DAY NEEDED FOR ANXIETY 5 Active nicotine (Nicoderm CQ) 21 MG/24HR patch Place 1 patch on the skin 1 (one) time each day at the same time for 28 days. 28 patch 5 Active nicotine (Nicoderm CQ) 14 MG/24HR patch Place 1 patch on the skin 1 (one) time each day at the same time for 14 days. 14 patch 5 Active nicotine (Nicoderm CQ) 7 MG/24HR patch Place 1 patch on the skin 1 (one) time each day at the same time for 14 days. 14 patch 5 Active citalopram (CeleXA) 20 MG tablet Take 20 mg by mouth Once per day. Active Active Problems Problem Noted Date Diagnosed Date Acute cough 02/08/2025 Nicotine use disorder 02/08/2025 Intrinsic sphincter deficiency (ISD) 01/18/2025 Hot flashes 01/18/2025 Recurrent UTI 10/06/2024 Assessment & Plan (10/06/2024 [...] via telemedicine. She may be moving to [place], [place]. Anxiety 02/19/2022 Assessment & Plan (09/03/2022 9:57 PM EST): Patient with depressed mood, reports her therapist from [facility] is working on getting her a [...] Lebron MD [facility] MED [facility] Encounters Date Type Department Care Team Description 03/17/2025 Refill [facility] [address] [place] [address] Rosa Lebron MD 03/16/2025 9:30 AM EDT Office Visit [facility] [address] [place] [address] Roberto Zaman 03/15/2025 Travel 02/16/2025 Results Follow-Up [facility] [address] [place] [address] Rosa Lebron MD Chlamydia/Trichomona s/Neisseria gonorrhoeae, PCR, Urine, Hepatitis C Antibody with Reflex to HCV, RNA, Quantitative, Real-Time PCR, HIV-1/2 Antigen and Antibodies, Fourth Generation, with Reflexes, Additional followed-up results: 2 02/08/2025 3:30 PM EDT Office Visit [facility] [address] [place] [address] Rosa Lebron MD Acute cough (Primary Dx); Nicotine use disorder; Screening examination for STD (sexually transmitted disease) 02/08/2025 Travel 02/04/2025 Telephone [facility] [address] [place] [phone] Rosa Lebron MD chart prep 01/29/2025 10:00 AM EDT Office Visit [facility] [address] [place] [address] Alexandra Zamanricio 01/29/2025 Patient Outreach [address] [address] Rosa Lebron MD Care Coordination (C3CM/STIVEN Le f/u_graduated) 01/20/2025 9:00 AM EDT Office Visit [facility] [address] [place] [address] Roberto Zaman 01/18/[address] [address] Rosa Lebron MD No Show 01/04/2025 Patient Outreach [facility] [address] [place] [phone] Rosa Lebron MD Care Coordination (C3CM/RA Le assessment_lvm ) 12/30/2024 11:00 AM EDT Office Visit [facility] [address] [place] [address] Roberto Zaman 12/28/2024 8:00 AM EDT Office Visit [facility] [address] [place] [address] Alexandra Zamanricio 12/28/2024 Refill [facility] [address] [place] [address] Rosa Lebron MD Smoking trying to quit from Last 3 Months Immunizations Immunization Administration Dates Next Due Hep B, adult 03/27/2022,,04/27/2016,03/27 Influenza Injectable Quadriv alant Preservative Free IIV4 MDCK 05/23/2022 Influenza injectable quadriv alent preservative free 04/26/2023,08/15/2016 Influenza, IIV3, injectable 07/10/2006 Influenza, seasonal, injecta ble, preservative free 05/26/2024 MMR 03/27/2022,02/05/2022 Moderna Covid-19 Vaccine 12+ 03/12/2022,02/13/20 Pneumococcal Conjugate PCV 20 09/05/2023 Pneumococcal Polysaccharide [...] Sign Reading Time Taken Comments Blood Pressure 138/90 02/08/2025 3:16 PM EDT Pulse 78 02/08/2025 3:16 PM EDT Temperature 36.8 C (98.3 F) 02/08/2025 3:16 PM EDT Respiratory Rate 20 02/08/2025 3:16 PM EDT Oxygen Saturation 98% 02/08/2025 3:16 PM EDT Inhaled Oxygen Concentration - - Weight 73.1 kg (161 lb 3.2 oz) 02/08/2025 3:16 P M EDT Height 160 cm (5' 3 ) 02/08/2025 3:16 PM EDT Body Mass Index 28.56 02/08/2025 3:16 PM EDT Plan of Treatment Upcoming Encounters Date Type Department Care Team (Late st Contact Info) Description 04/16/2025 10:30 AM EDT Office Visit [facility] [address] [place] [address] Roberto Zaman [address] [place] [address] 04/30/2025 12:45 PM EDT Office Visit [facility] [address] [place] [address] Rene Hammond Health Maintenance Due Date Last Done Comments CT Colonography 1975 Colonoscopy 1975 FIT 1975 Sigmoidoscopy 1975 Family Planning (PISQ) 1992 FOBT 09/12/2024 09/12/2023 Depression Monitoring 11/11/2024 05/13/2024, 024 COVID-19 Vaccine ( season) 2025 03/12/2022, 02/12/2022 Influenza Vaccine (#1) 2025 , 04/26/2023, 05/23/2022, Additional history exists Dental Oral Exam 04/28/2025 10/26/2024, 05/31/2023 Dental Prophylaxis 04/28/2025 10/26/2024 DTaP/Tdap/Td Vaccines (2 - Td or Tdap) 08/15/2025 08/15/2015 SDOH Screening 10/02/2025 10/02/2024 Dental X-Ray: Bitewings 10/27/2025 10/27/19, 03/16/2024, 05/31/2023, Additional history exists Alcohol/Substance Use Screening 02/08/2026 02/08/2025 Disability Screening 02/08/2026 02/08/2025 Tobacco Screening 03/16/2026 03/16/2025 Dental X-Ray: Full Mouth 06/01/2026 05/31/2023 Mammogram 07/06/2026 07/06/2024, 05/24/2023 Colorectal Cancer Screening 09/12/2026 FIT DNA/Cologuard 09/12/2026 09/12/2023 Zoster Vaccines (1 of 2) 2027 Cervical Cancer Screening 07/30/2027 HPV/Cotest 07/30/2027 07/30/2022, 05/15/2021 Pap Smear 07/30/2027 07/30/2022, 05/15/2021 Lipid Panel 07/27/2029 07/27/2024, 08/22, 06/12/2022, Additional history exists RSV Patients and Patients Aged 60 years or older (1 - 1-dose 75+ series) 2052 Hepatitis B Vaccines Completed 03/27/2022, 02/05/2022, 04/27/2016, Additional history exists Pneumococcal Vaccine: Pediatrics (0 to 5 Years) and At-Risk Patients (6 to 49) Years Completed 09/05/2023, 08/15/2016 HIV Screening Completed 02/12/2025, 08/0 09/2021, 09/21/2021 Hepatitis C Screening Completed 02/12/2025 , 02/21/2022, 09/21/2021 HIB Vaccines Aged Out No longer eligi [...] patient's age to complete this topic Meningococcal B Vaccine Aged Out No l onger eligible based on patient's age to complete [...] Procedure Name Priority Date/Time Associated Diagnosis Comments CASE PRESENTATION, DETAILED AND EXTENSIVE TREATMENT PLANNING Routine 03/16/2025 9:30 AM EDT 5 CROWN - PORCELAIN/CERAMIC Routine 03/16/2025 9:30 AM EDT 4 CROWN - PORCELAIN/CERAMIC Routine 03/16/2025 9:30 AM EDT XR CHEST 2 VIEWS Routine 02/12/2025 1:07 PM EDT Acute cough HEPATITIS B SURFACE ANTIBODY, QUALITATIVE Routine 02/12/2025 12:49 PM EDT Screening examination for STD (sexually transmitted disease) SYPHILIS SCREEN Routine 02/12/2025 12:49 PM EDT Screening examination for STD (sexually transmitted disease) HIV 1/2 ANTIGEN/ANTIBODY, FOURTH GENERATION W/RFL Routine 02/12/2025 12:49 PM EDT Screening examination for STD (sexually transmitted disease) HEPATITIS C AB W/REFL TO HCV RNA, QN, PCR Routine 02/12/2025 12:49 PM EDT Screening examination for STD (sexually transmitted disease) CHLAMYDIA/TRICHOMONAS /NEISSERIA GONORRHOEAE, PCR, URINE Routine 02/08/2025 12:00 AM EDT Screening examination for STD (sexually transmitted disease) CASE PRESENTATION, DETAILED AND EXTENSIVE TREATMENT PLANNING Routine 01/29/2025 10:00 AM EDT 5 CROWN PREP Routine 01/29/2025 10:00 AM EDT 4 CROWN PREP Routine 01/29/2025 10:00 AM EDT CASE PRESENTATION, DETAILED AND EXTENSIVE TREATMENT PLANNING Routine 01/20/2025 9:00 AM EDT 5 PREFABRICATED POST AND CORE IN ADDITION TO CROWN Routine 01/20/2025 9:00 AM EDT 4 PREFABRICATED POST AND CORE IN ADDITION TO CROWN Routine 01/20/2025 9:00 AM EDT CASE PRESENTATION, DETAILED AND EXTENSIVE TREATMENT PLANNING Routine 12/30/2024 11:00 AM EDT 15 EXTRACTION, ERUPTED TOOTH OR EXPOSED ROOT (ELEVATION/FORCEPS REMOVAL) Routine 12/30/2024 11:00 AM EDT 16 EXTRACTION, ERUPTED TOOTH OR EXPOSED ROOT (ELEVATION/FORCEPS REMOVAL) Routine 12/30/2024 11:00 AM EDT CASE PRESENTATION, DETAILED AND EXTENSIVE TREATMENT PLANNING Routine 12/28/2024 8:00 AM EDT 4 ENDODONTIC THERAPY, PREMOLAR TOOTH Routine 12/28/2024 8:00 AM EDT PROPHYLAXIS - ADULT Routine 10/26/2024 1 1:00 AM EDT BITEWINGS - 4 RADIOGRAPHIC IMAGES Routine 10/26/2024 11:00 AM EDT PERIODIC ORAL EVALUATION - ESTABLISHED PATIENT Routine 10/26/2024 11:00 AM EDT LIPID PANEL, STANDARD Routine 07/27/2024 11:56 AM EST Hyperlipidemia, unspecified hyperlipidemia type BI MAMMOGRAM SCREENING TOMOSYNTHESIS BILATERAL Routine 07/06/2024 12:38 PM EST LAB COLOGUARD COLON CANCER SCREEN Routine 09/12/2023 7:40 AM EST Colon cancer screening INTRAORAL - COMPLETE SERIES OF RADIOGRAPHIC IMAGES Routine 05/31/2023 9:00 AM EST HPV MRNA E6/E7 REFLEX TO HPV 16, 18/45 Routine 07/30/2022 2:13 PM EST PAP SMEAR Routine 07/30/2022 2:13 PM EST from Last 3 Months or Most Recently Relevant to Health Maintenance Results * XR Chest 2 Views (02/12/2025 1:07 PM EDT) Anatomical Region Laterality Modality Chest Radiographic Gena ging 02/12/2025 1:07 PM EDT Narrative 02/12/2025 1:20 PM EDT [place] [address] XRay Report Signed Patient: Arely Sun MR#: [id number] : 1975 Acct:[id number] Age/Sex: 49 / F ADM Date: 02/12/25 Loc: [facility] Attending Dr: Rosa Lebron MD Ordering Physician: Rosa Lebron MD Date of Service: 02/12/25 Procedure(s): XR chest 2V Accession Number(s): [id number] cc: Rosa Lebron MD EXAMINATION: XR CHEST CLINICAL INFORMATION: 49 yo F with intermittent cough and hx of smoking, send to [facility] COMPARISON: April 10, 2019. TECHNIQUE: 2 views of the chest were obtained. FINDINGS: No consolidation, pleural fissure pneumothorax. No hyperinflation. Cardiomediastinal silhouette size is normal. 10% superior endplate compression deformities, old, thoracic spine. S-shaped curvature of the thoracolumbar spine. XR/XR chest 2V IMPRESSION: No acute airspace disease. Mild scoliosis, thoracolumbar spine. Electronically signed by: Joe Cabrera MD 02/12/2025 01:16 PM EDT Dictated By: Joe Gregorio MD Signed By: <Electronically signed by Joe Braxton MD in OV> 02/12/25 1316 DD/ 1307 TD/TT: 02/12/25 1311 Boiler Control Room Operator: Procedure Note Donotlambertointerpreter, Image - 02/12/[address] [address] XRay Report Signed Patient: Arely SnuMR#: [id number] : 1975Acct:[id number] Age/Sex: 49 / FADM Date: 02/12/25 Loc: HO.XRAY Attending Dr: Rosa Lebron MD Ordering Physician: Rosa Lebron MD Date of Service: 02/12/25 Procedure(s): XR chest 2V Accession Number(s): [id number] cc: Rosa Lebron MD EXAMINATION: XR CHEST CLINICAL INFORMATION: 49 yo F with intermittent cough and hx of smoking, send to [facility] COMPARISON: April 10, 2019. TECHNIQUE: 2 views of the chest were obtained. FINDINGS: No consolidation, pleural fissure pneumothorax. No hyperinflation. Cardiomediastinal silhouette size is normal. 10% superior endplate compression deformities, old, thoracic spine. S-shaped curvature of the thoracolumbar spine. XR/XR chest 2V IMPRESSION: No acute airspace disease. Mild scoliosis, thoracolumbar spine. Electronically signed by: Joe Cabrera MD 02/12/2025 01:16 PM EDT Dictated By: Joe Gregorio MD Signed By: <Electronically signed by Joe Braxton MDin OV> 02/12/25 1316 DD/ 1307 TD/TT: 02/12/25 1311 Boiler Control Room Operator: us Rosa Lebron MD IMG XR PROCEDURES Edited Resu lt - Final * Syphilis Screen (02/12/2025 12:49 PM EDT) Syphilis Screen Nonreactive Nonreactive [facility] Blood 02/12/2025 12:4 9 PM EDT 02/12/2025 12:49 PM EDT Rosa Lebron MD LAB BLOOD ORDERABLES Final Re sult Performing Organization Address [facility]/ZIP Co de Phone Number [facility] [address] [place] [address] [phone] * Hepatitis C Antibody with Reflex to HCV, RNA, Quantitative, Real-Time PCR (02/12/2025 12:49 PM EDT) Hepatitis C Antibody Nonreactive Nonreactive [facility] Comment:Antibodies to HCV no t detected; does not exclude early acuteHCV infection. Blood Venous blood specimen / Unknown 02/12/2025 12:49 PM EDT 02/12/2025 12:49 PM EDT Rosa Lebron MD LAB BLOOD ORDERABLES Final Re sult Performing Organization Address [facility]/ZIP Co de Phone Number [facility] [address] [place] [address] [phone] * HIV-1/2 Antigen and Antibodies, Fourth Generation, with Reflexes (02/12/2025 12:49 PM EDT) HIV AB/AG Nonreactive Nonreactive [facility] Comment:HIV-1 p24 Ag and/or HIV-1/HIV-2 Ab not detected.A test result that is nonreactive does not exclude thepossibility of exposure to or infection with HIV-1 and/orHIV-2. Nonreactive results in this assay for individualswith prior exposure to HIV-1 and/or HIV-2 may be due toantigen and antibody levels that are below the limit ofdetection of this assay.[employer] HIV Ag/Ab Combo assay result andsupplemental assay results should be interpreted inconjunction with the patient's clinical presentation,history and other laboratory results. If the results areinconsistent with clinical evidence, additional testing issuggested to confirm the result. Blood Venous blood specimen / Unknown 02/12/2025 12:49 PM EDT 02/12/2025 12:49 PM EDT Rosa Lebron MD LAB BLOOD ORDERABLES Final Re sult Performing Organization Address [facility] Co de Phone Number [facility] [address] [place] [phone] * Hepatitis B Surface Antibody, Qualitative (02/12/2025 12:49 PM EDT) Pathologist [facility] ~Hepatitis B Surface Antibody REACTIVE Nonreactive [facility] Comment:REACTIVE: > 11.99 mI U/mL Blood Venous blood specimen / Unknown 02/12/2025 12:49 PM EDT 02/12/2025 12:49 PM EDT Result [facility] Rosa Lebron MD LAB BLOOD ORDERABLES Final Re sult Performing Organization Address [facility] Co de Phone Number [facility] [address] [place] [phone] * Chlamydia/Trichomonas/Neisseria gonorrhoeae, PCR, Urine (02/08/2025 12:00 AM EDT) [facility] CT PCR, Urine NOT DETECTED Not Detect. [facility] Comment:A not detected test result does not exclude the possibilityof infection because test results can be affected byimproper specimen collection, concurrent antibiotic therapy,or the number of organisms in the specimen which may bebelow the sensitivity of the test. As with many diagnostictests, results from the Xpert CT/NG assay should beinterpreted in conjunction with other laboratory andclinical data available to the clinician.The Xpert CT/NG assay should not be used for the evaluationof suspected sexual abuse or for other medico-legalindications. Additional testing is recommended in anycircumstance when false positive or false negative resultscould lead to adverse medical, social or psychologicalconsequences. NG PCR, Urine NOT DETECTED Not Detect. [facility] Comment:A not detected test result does not exclude the possibilityof infection because test results can be affected byimproper specimen collection, concurrent antibiotic therapy,or the number of organisms in the specimen which may bebelow the sensitivity of the test. As with many diagnostictests, results from the Xpert CT/NG assay should beinterpreted in conjunction with other laboratory andclinical data available to the clinician.The Xpert CT/NG assay should not be used for the evaluationof suspected sexual abuse or for other medico-legalindications. Additional testing is recommended in anycircumstance when false positive or false negative resultscould lead to adverse medical, social or psychologicalconsequences. Urine (Urine, Random) 02/08/2025 02/08/2025 us Rosa Lebron MD LAB URINE ORDERABLES Final Re sult [facility] [address] [place] [address] [phone] * (ABNORMAL) Lipid Panel, Standard (07/27/2024 11:56 AM EST) Triglycerides 210(H) <150 mg/dL [facility] Comment:Desirable Triglyceri de: less than 150 mg/dLBorderline High Triglyceride 150-199 mg/dLHigh Triglyceride: 200-499 mg/dLVery High Triglyceride: greater than or equal to 5OO mg/dL Cholesterol 236(H) <200 mg/dL [facility] Comment:Desirable Cholestero l: less than 200 mg/dLBorderline High Cholesterol: 200-239 mg/dLHigh Cholesterol: greater than 239 mg/dL LDL Cholesterol Calculated 155(H) <100 mg/dL [facility] Comment:Desirable LDL: less than 100 mg/dLNear Optimal/Above Optimal LDL: 110- 129 mg/dLBorderline High LDL: 130-159 mg/dLHigh LDL: 160-189 mg/dLVery High LDL: greater than or equal to 190 mg/dL HDL Cholesterol 39(L) >40 mg/dL [facility] Comment:Desirable HDL: great er than 40 mg/dL Note: This HDL assay may give artificially low results in patients with liver disease. Blood Venous blood specimen / Unknown 07/27/2024 11:56 AM EST 07/27/2024 11:56 AM EST us Rosa Lebron MD LAB BLOOD ORDERABLES Final Re sult [facility] [address] [place] [address] [phone] * BI Mammogram Screening Tomosynthesis Bilateral (07/06/2024 12:38 PM EST) Anatomical Region Laterality Modality Breast Bilateral Mammography 07/06/2024 12:3 8 PM EST Narrative 07/16/2024 11:22 AM EST [address] [place] [address] Mammography Report Signed Patient: Arely Sun MR#: [id number] : 1975 Acct:[id number] Age/Sex: 49 / F ADM Date: 07/06/24 Loc: HO.MAMMO Attending Dr: Rosa Lebron MD Ordering Physician: Rosa Lebron MD Results: 1Nega tive Date of Service: 07/06/24 Follow Up: 1 Year From Orig inal Mammogram Procedure(s): MM tomosynthesis screening BI Accession Number(s): [id number] cc: Rosa Lebron MD EXAMINATION: MM SCREENING [...] 07/16/24 1119 DD/ 1238 TD/TT: 07/06/24 1255 Boiler Control Room Operator: Procedure Note Donotuseinterpreter, Image - 07/16/[facility] [address] [place] [address] Mammography Report Signed Patient: Arely SunMR#: [id number] : 1975Acct:[id number] Age/Sex: 49 / FADM Date: 07/06/24 Loc: HO.MAMMO Attending Dr: Rosa Lebron MD Ordering Physician: Rosa Lebron MDResults: 1Nega tive Date of Service: 07/06/24Follow Up: 1 Year From Orig inal Mammogram Procedure(s): MM tomosynthesis screening BI Accession Number(s): [id number] cc: Rosa Lebron MD EXAMINATION: MM SCREENING [...] 07/16/24 1119 DD/ 1238 TD/TT: 07/06/24 1255 Boiler Control Room Operator: Rosa Lebron MD IMG BI PROCEDURES Final Resul t * Cologuard?? colon cancer screening (09/12/2023 7:40 AM EST) Cologuard Result Negative Negative 09/20/19 1:22 AM EST [facility] (CLIA #:[id number]) Comment: NEGATIVE TEST RESULT. A negative Cologuard result indicates a low likelihood that a colorectal cancer (CRC) or advanced adenoma (adenomatous polyps with more advanced pre-malignant features) is present. The chance that a person with a negative Cologuard test has a colorectal cancer is less than 1 in 1500 (negative predictive value >99.9%) or has an advanced adenoma is less than 5.3% (negative predictive value 94.7%). These data are based on a prospective cross-sectional study of 10,000 individuals at average risk for colorectal cancer who were screened with both Cologuard and colonoscopy. (Sharon Jane et al, N Engl J Med 2014;370(14):5999-1957) The normal value (reference range) for this assay is negative. COLOGUARD RE-SCREENING RECOMMENDATION: Periodic colorectal cancer screening is an important part of preventive healthcare for asymptomatic individuals at average risk for colorectal cancer. Following a negative Cologuard result, the [place] [employer] Society and U.S. Multi-Society Task Force screening guidelines recommend a Cologuard re-screening interval of 3 years. References: [place] [employer] Guideline for Colorectal Cancer Screening: https://www.cancer.org/cancer/ezdzb-oxwucd-wwypxz/kzmwwjsmr-mlhkeqyds-xysmdxw/ac s-rec ommendations.html.; Yomi ALCANTAR, Christine REID, Delores DURBIN, Colorectal Cancer Screening: Recommendations for Physicians and Patients from the U.S. Multi-Society Task Force on Colorectal Cancer Screening , Am J Gastroenterology 2017; 112:8161-1056. TEST DESCRIPTION: Composite algorithmic analysis of stool DNA-biomarkers with hemoglobin immunoassay. Quantitative values of individual biomarkers are not [...] screened with both Cologuard and colonoscopy. (Sharon Jane et al, N Engl J Med 2014;370(14):1892-2874.) Cologuard may produce a false negative or false positive result (no colorectal cancer or precancerous polyp present at colonoscopy follow up). A negative Cologuard test result does not guarantee the absence of CRC or advanced adenoma (pre-cancer). The current Cologuard screening interval is every 3 years. ([place] [employer] and U.S. Multi-Society Task Force). Cologuard performance data in a 10,000 patient pivotal study using colonoscopy as the reference method can be accessed at the following location: www.[employer]/results. Additional description of the Cologuard test process, warnings and precautions can be found at www.[employer] Foundationrd.com. Stool specimen (specimen) 09/12/2023 7:40 AM EST 09/13/2023 11:11 AM EST us Rosa Lebron MD LAB MOLECULAR DIAGNOSTICS ORD ERABLES Final Result [facility] (CLIA #:[id number]) [address] [place] [address], * HPV mRNA E6/E7 w/Reflex to HPV Genotypes 16, 18/45 (07/30/2022 2:13 PM EST) HPV nRNA E6/E7 Not Detected Not Detected [facility] Comment:Methodology: Transcr iption-Mediated AmplificationThis assay detects E6/E7 viral messenger RNA (mRNA) from 14high-risk HPV types (16,18,31,33,35,39,45,51,52,56,58,59,66,68).Cervical sources are required for HPV testing.If a vaginal source from a patient who has had atotal hysterectomy with removal of cervix wassubmitted, please contact the testing laboratoryfor alternative testing options.For additional information, please refer tohttp://education.[employer]/faq/SIT776o8(This link if provided for information/educational purposes only.)THIS TEST WAS PERFORMED AT:[facility] [place] [address] ([facility])[place] [address]ATGIFKEARA VASQUEZ MD HPV mRNA E6/E7 [facility] HPV 16 RNA [facility] HPV 18/45 RNA [facility] 07/30/2022 2:13 PM EST 07/30/2022 4:30 PM EST [facility] External Provider LAB CYT OLOGY ORDERABLES Final Result [facility] [address] [place] [phone] * Pap Smear (07/30/2022 2:13 PM EST) 07/30/2022 2:13 PM EST 07/30/2022 4:30 PM EST Narrative [facility] - 08/06/2022 1:00 PM EST ----- ------- Name: Arely Sun Age/Sex: 47/F : 1975 Unit#: [id number] Attend Dr: Shital Hummel Re07/30/22 Status: DEP REF Location: [facility] Disch: ----- ------- SPEC : [id number] RECD: 07/30/22-1630 STATUS: [place] NUM: [id number] SALVADOR: 07/30/22-[address] [facility] [address]: Shital Hummel [facility] ENTERED: 07/30/22-164 SP TYPE: Pap Smr OTHR DR: Rosa Lebron MD ORDERED: Pap Smear Interpretation Satisfactory for evaluation. Negative for intraepithelial lesion or malignancy. Coccobacilli consistent with shift in vaginal ghassan. HPV mRNA E6/E7: NOT DETECTED This assay detects E6/E7 viral messenger RNA (mRNA) from 14 high-risk HPV types (16, 18, 31, 33, 35, 39, 45, 51, 52, 56, 58, 59, 66, 68) HPV testing performed by [facility], [place], [place]. See reference laboratory portion of the EMR for entire report. Clinical Information LMP: Not sure Previous PAP test: 06/27/21, WNL Material Received ThinPrep-Cervical Copies To: Shital Hummel[address] Higginbotham [address] [place] [id number] Rosa Lebron MD [address] [place] [id number] ----- ------- Signed (signature on file) Rosa Gavin 08/06/22 1300 ----- ------- END OF REPORT [facility] External Provider LAB [facility] ORDERABLES Final Result [facility] [address] [place], [place] [phone] from Last 3 Months or Most Recently Relevant to Health Maintenance Insurance [facility] C[place] AD[place] Care Teams Conservation Or Heritage Architect Relationship Specialty Start Date End Date Rosa Lebron MD [address] [place] [id number] PCP - General Family Medicine 03/22/21 Susan Yañez Consulting Physician Hematology and Oncology 07/09/24 Santos Mcleod Nurse Practitioner Urology 07/09/24 Rose Benítez Burnishing Machine OperatorEye Care Professional 12/23/24
--- OUTSIDE RECORDS SUMMARY | 2025-03-30 15:56 | XMS_ITS | Encounter Summary ---
Author Organization [employer] Address [address] [facility] 7t [place] [address] Care Team Providers Care Resident Care Spec Name Role Phone Rosa Lebron MD Primary Care Provider [phone] Encounter Details Date Type Department Care Team (Late st Contact Info) Description 10/12/2024 Orders Only [facility] MEDICINE [address] [place] [address] Telma Hammond MD [address] [place], [place] [phone] Acute cough (Primary Dx) Social History Tobacco [...] Description 04/16/2025 10:30 AM EDT Office Visit [facility] ADULT DENTAL [address] [place] [address] Roberto Zaman [address] [place] [address] 04/30/2025 12:45 PM EDT Office Visit [facility] ADULT DENTAL [address] [place] [address] Rene Hammond documented as of this encounter Visit Diagnoses Diagnosis Acute cough- Primary documented in this encounter Additional Health Concerns Assessment Noted Time PHQ-9 Depression Total Score: 24 024 3:43 PM EDT documented as of this encounter Care Teams Resident Care Spec Relationship Specialty Start Date End Date Rosa Lebron MD [address] [place] [id number] PCP - General Family Medicine 03/22/21 Susan Yañez Consulting Physician Hematology and Oncology 07/09/24 Santos Mcleod Nurse Practitioner Urology 07/09/24 Rose Benítez Photographic EngineerSpares Scheduler 12/23/24 documented as of this encounter
--- OUTSIDE RECORDS SUMMARY | 2025-03-30 15:56 | XMS_ITS | Encounter Summary ---
Author Organization [employer] Address [address] [facility] [address] [place] [address] Care Team Providers Care Chief Ultrasound Technologist Name Role Phone Rosa Lebron MD Primary Care Provider [phone] Reason for Visit * Reason Comments Med Refill Encounter Details Date Type Department Care Team ([facility] st Contact Info) Description 12/06/2023 Refill [facility] MED & PEDS [address] [place], [place] [phone] Rosa Lebron MD [address] [place], [place] [phone] Social History Tobacco Use Types Packs/Day Years Used Date Smoking Tobacco: Every Day Cigarettes Passive Smoke Exposure: Never Smokeless Tobacco: Never Alcohol Use Standard Drinks/Week Comments Never 0 (1 standard drink = 0.6 oz pur e alcohol) Depression Answer Date Recorded Patient Health Questionnaire-9 Score 12 09/20/2022 Housing Stability Answer Date Recorded What is your housing situation today? I have paco valeriano 11/22/[address] you li [...] Description 04/16/2025 10:30 AM EDT Office Visit [facility] ADULT DENTAL [address] [place] [address] Roberto Zaman [address] [place] [address] 04/30/2025 12:45 PM EDT Office Visit [facility] ADULT DENTAL [address] [place] [address] Rene Hammond documented as of this encounter Visit Diagnoses Not on filedocumented in this encounter Additional Health Concerns Assessment Noted Time PHQ-9 Depression Total Score: 12 023 2:24 PM EST documented as of this encounter Care Teams Chief Ultrasound Technologist Relationship Specialty Start Date End Date Rosa Lebron MD [address] [place] [address] PCP - General Family Medicine 03/22/21 Susan Yañez Consulting Physician Hematology and Oncology 07/09/24 Santos Mcleod Nurse Practitioner Urology 07/09/24 Rose Benítez Environmental Technical OfficerSocial Media Executive 12/23/24 documented as of this encounter
--- OUTSIDE RECORDS SUMMARY | 2025-03-30 15:56 | XMS_ITS | Encounter Summary ---
Author Organization [employer] Address [address] [facility] 7t [place] [address] Care Team Providers Care Market Consultant Name Role Phone Rosa Lebron MD Primary Care Provider [phone] Encounter Details Date Type Department Care Team (Late Contact Info) Description 04/16/2023 Orders Only [facility] MED[facility]INE [address] [place], [place] [phone] Provider, MD Nano Social History Tobacco Use [...] Description 04/16/2025 10:30 AM EDT Office Visit [facility] ADULT [facility] [address] [place] [address] Roberto Zaman [address] [place] [address] 04/30/2025 12:45 PM EDT Office Visit [facility] ADULT [facility] [address] [place] [address] Rene Hammond documented as of this encounter Procedures Procedure Name Priority Date/Time Associated Diagnosis Comments HM PAP/HPV Routine 05/15/2021 documented in this encounter Results * Pap Smear (05/15/2021) us Historical Provider HEALTH MAINTENANCE Final Result documented in this encounter Visit Diagnoses Not on filedocumented in this encounter Additional Health Concerns Assessment Noted Time PHQ-9 Depression Total Score: 12 023 2:24 PM EST documented as of this encounter Care Teams Market Consultant Relationship Specialty Start Date End Date Rosa Lebron MD [address] [place] [address] PCP - General Family Medicine 03/22/21 Susan Yañez Consulting Physician Hematology and Oncology 07/09/24 Santos Mcleod Nurse Practitioner Urology 07/09/24 Rose Benítez Paraffin Machine OperatorChairman President And Chief Executive Officer 12/23/24 documented as of this encounter
--- OUTSIDE RECORDS SUMMARY | 2025-03-30 15:56 | XMS_ITS | Clinical Summary ---
Author Organization [facility] Address [address] [address] Phone Care Team Providers Care Programming Specialist Name Role Phone Pcp, Unknown Primary Care Provider Unavailabl e Allergies No known active allergies Medications ondansetron (ZOFRAN-ODT) 4 MG disintegrating tablet (To-Go) Take 1-2 tablet(s) by mouth every 8 hours as needed for nausea/vomi ting 6 tablet Active Immunizations Immunization Administration Dates Next Due COVID-19 (Pre-05/13) Moderna Vaccine, mRNA, PF 0 03/12/2022,02/12/2022 Hepatitis B Adult 03/27/2022,02/05/2022 INFLUENZA, SPLIT VIRUS, TRIVALENT PF 05/26/2024 Influenza Quadrivalent Preservative Free IM 12/2022 Influenza, Unspecified Formulation 05/23/2022 MMR 03/27/2022,02/05/2022 Tdap [...] FOBT 2022 SIGMOIDOSCOPY 2022 VIRTUAL COLONOSCOPY 2022 INFLUENZA VACCINE (#1) 2025 , 04/26/2023, 05/23/2022 COVID-19 VACCINE (3 - 2024-2 6 season) 2025 03/12/2022, 02/12/2022 MAMMOGRAM 05/24/2025 05/24/2023 PAP SMEAR [...] ACO C3 ACO C3 ACO C3 ACO C3 ACO Care Teams Programming Specialist Relationship Specialty Start Date End Date Pcp, Unknown PCP - General 02/22/23 Additional Source Comments The information contained in this document represents components of the legal health record. It is not the complete legal health record.[facility]
--- OUTSIDE RECORDS SUMMARY | 2025-03-30 15:56 | XMS_ITS | Encounter Summary ---
Author Organization [employer] Address [address] [facility] [address] [place] [address] Care Team Providers Care Graduate Teaching Assistant Name Role Phone Rosa Lebron MD Primary Care Provider [phone] Reason for Visit * Reason Comments Med Refill Encounter Details Date Type Department Care Team ([facility] st Contact Info) Description 03/17/2025 Refill [facility] MED & PEDS [address] [place], [place] [phone] Rosa Lebron MD [address] [place], [place] [phone] Social History Tobacco Use Types Packs/Day Years [...] 10:30 AM EDT Office Visit [facility] ADULT DENTAL [address] [place] [address] Alexandra Zamanricio [address] [place] [address] 04/30/2025 12:45 PM EDT Office Visit [facility] ADULT DENTAL [address] [place] [address] Rene Hammond documented as of this encounter Visit Diagnoses Not on filedocumented in this encounter Additional Health Concerns Assessment Noted Time PHQ-9 Depression Total Score: 24 024 3:43 PM EDT documented as of this encounter Care Teams Graduate Teaching Assistant Relationship Specialty Start Date End Date Rosa Lebron MD [address] [place] [address] PCP - General Family Medicine 03/22/21 Susan Yañez Consulting Physician Hematology and Oncology 07/09/24 Santos Mcleod Nurse Practitioner Urology 07/09/24 Rose Benítez Distribution LeadBasketball Player 12/23/24 documented as of this encounter
--- OUTSIDE RECORDS SUMMARY | 2025-03-30 15:56 | XMS_ITS | Encounter Summary ---
Author Organization [employer] Address [address] [place] [address] Care Team Providers Care Director Of Customer Service Name Role Phone Rosa Lebron MD Primary Care Provider [phone] Encounter Details Date Type Department Care Team (Late st Contact Info) Description 06/07/2023 Abstract [facility] ADULT DENTAL [address] [place], [place] [phone] Nagi Conway DDS [address] [place], [place] [phone] Social History Tobacco Use Types Packs/Day Years [...] the past 12 months, has t he [employer], gas, oil or water [employer] threatened to shut off services in your [...] Description 04/16/2025 10:30 AM EDT Office Visit [facility] ADULT DENTAL [address] [place], [place] [phone] Roberto Zaman [address] [place] [address] 04/30/2025 12:45 PM EDT Office Visit [facility] ADULT DENTAL [address] [place] [address] Rene Hammond documented as of this encounter Visit Diagnoses Not on filedocumented in this encounter Additional Health Concerns Assessment Noted Time PHQ-9 Depression Total Score: 12 023 2:24 PM EST documented as of this encounter Care Teams Director Of Customer Service Relationship Specialty Start Date End Date Rosa Lebron MD [address] [place] [address] PCP - General Family Medicine 03/22/21 Susan Yañez Consulting Physician Hematology and Oncology 07/09/24 Santos Mcleod Nurse Practitioner Urology 07/09/24 Rose Benítez Lens MolderRegister Repairer 12/23/24 documented as of this encounter
== END 2025-03-30 14:03 | disposition home or self-care (01) ==
LOC: HO.HWS 13:27
PROVIDERS: PCP Family Medicine; Visit Provider Obstetrics & Gynecology
DX: R23.2 Flushing (principal)
CPT/HCPCS: 99213

== ENCOUNTER → 2025-03-30 13:27 | Outpatient (BNVA) | payer MEDICAID, SELFPAY | PROVIDERS: PCP Family Medicine; Visit Provider Obstetrics & Gynecology | DX: R23.2 Flushing (principal); F17.210 Nicotine dependence, cigarettes, uncomplicated | CPT/HCPCS: 99212 ==

== ENCOUNTER 2025-04-13 05:44 | Day surgery (SDC) | payer MEDICAID, SELFPAY ==
--- OUTSIDE RECORDS SUMMARY | 2025-04-02 15:44 | XMS_ITS | Clinical Summary ---
Author Organization [facility] Address [address] [address] Phone Care Team Providers Care Remote Sensing Technologist Name Role Phone Pcp, Unknown Primary Care [...] ACO C3 ACO C3 ACO Care Teams Remote Sensing Technologist Relationship Specialty Start Date End Date Pcp, Unknown PCP - General 02/22/23 Additional Source Comments The information contained in this document represents components of the legal health record. It is not the complete legal health record.[facility]
[2025-04-09 09:23] VITALS: BMI 23.0
--- NOTE | 2025-04-09 10:09 | P.CONAN_ITS ---
Documented by User: Chela Viveros NP 04/15/25 15:06 HPI - Anesthesia Eval Consult details Narrative: 50 yr old female for Cystoscopy with Bulkamid PMFSH Active Problems Active Problems: All Active Problems (Updated 04/09/25 @ 09:20 by Gretta Go RN) UTI symptoms (Acute) Insomnia (Acute) Anxiety (Acute) Migraines (Acute) Chronic pain of both knees (Acute) High cholesterol (Acute) Hypertension (Acute) Intrinsic sphincter deficiency (ISD) (Acute) KARL (stress urinary incontinence, female) (Acute) Hot flashes (Acute) Well woman exam (Acute) Menopause (Acute) Stress incontinence (Acute) Complex ovarian cyst (Acute) Perimenopause (Acute) Urinary retention with incomplete bladder emptying (Acute) Cervical cancer screening (Acute) Screen for sexually transmitted diseases (Acute) Women's annual routine gynecological examination (Acute) Thrombocytosis (Chronic) Unsatisfactory cervical Papanicolaou smear (Acute) Abnormal uterine bleeding (AUB) (Acute) Stiffness of left hand joint (Acute) Fracture of fifth metacarpal bone of left hand (Acute) Bleeding hemorrhoids (Acute) Hemorrhoid (Acute) History of tubal ligation (Acute) Past Medical History Medical History Thrombocytosis Elevated cholesterol HTN (hypertension) KARL (stress urinary incontinence, female) Migraines Anxiety Constipation Family History Family History Father Hx of tongue cancer Mother Alive and well Family history of problems with anesthesia: No Surgical History Surgical History History of dilatation and curettage Hx of cystoscopy Hx of hemorrhoidectomy H/O hand surgery History of tubal ligation History of tonsillectomy History of Problems with Anesthesia: No Social History Social History Household Members: Family Housing: Apartment Are you a primary before and after school daycare worker to a significant other at home: No Do you presently have visiting nurse or other home services: No Alcohol intake: never Patient Tobacco Use Status: Current everyday Tobacco user Tobacco use type: Cigarette Cigarette Packs Per Day: 4 Cigarettes Per Day: 7 Years Smoked: 20+ Use of substances other than those prescribed or required for medical reasons: No Are you DNR?: No Advance Directives: No Advance Directives Information Provided: Yes Patient : No service: No Current occupational status: disabled Meds Allergies Allergy/AdvReac Type Severity Reaction Status Date / Time No Known Allergies (No Known Allergy Verified 04/13/25 06:04 Allergies*) Home Medications ?Medication ?Instructions ?Recorded ?Confirmed ?Last Taken ?Type blood pressure test kit-large #1 ea 07/30/22 04/13/25 11/15/24 History rosuvastatin 10 mg tablet 20 mg PO DAILY 07/30/2203/2311/15/24 History amlodipine 10 mg tablet 10 mg PO DAILY 03/05/2503/23 Unknown History hydroxyzine pamoate 25 mg capsule 25 mg PO BID PRN anx iety 04/13/25 04/13/25 Unknown History Exam Height,Weight and Vital Signs: Height 5 ft 3 in Weight 59 kg Assessment and Plan Final Anesthetic Review Family History of Problems with Anesthesia: No History of Problems with Anesthesia: No Documented by User: Stephan Araiza MD 04/20/25 11:51 PMFSH Past Medical History Medical History Thrombocytosis Elevated cholesterol HTN (hypertension) KARL (stress urinary incontinence, female) Migraines Anxiety Constipation Patient : No Family History Family History Father Hx of tongue cancer Mother Alive and well Surgical History Surgical History History of dilatation and curettage Hx of cystoscopy Hx of hemorrhoidectomy H/O hand surgery History of tubal ligation History of tonsillectomy Social History Social History Household Members: Family Housing: Apartment Are you a primary before and after school daycare worker to a significant other at home: No Do you presently have visiting nurse or other home services: No Alcohol intake: never Patient Tobacco Use Status: Current everyday Tobacco user Tobacco use type: Cigarette Cigarette Packs Per Day: 4 Cigarettes Per Day: 7 Years Smoked: 20+ Use of substances other than those prescribed or required for medical reasons: No Are you DNR?: No Advance Directives: No Advance Directives Information Provided: Yes Patient : No service: No Current occupational status: disabled Meds Allergies Allergy/AdvReac Type Severity Reaction Status Date / Time No Known Allergies (No Known Allergy Verified 04/13/25 06:04 Allergies*) Home Medications ?Medication ?Instructions ?Recorded ?Confirmed ?Last Taken ?Type blood pressure test kit-large #1 ea 07/30/22 04/13/25 11/15/24 History rosuvastatin 10 mg tablet 20 mg PO DAILY 07/30/2203/2311/15/24 History amlodipine 10 mg tablet 10 mg PO DAILY 03/05/2503/23 Unknown History hydroxyzine pamoate 25 mg capsule 25 mg PO BID PRN anx iety 04/13/25 04/13/25 Unknown History Exam Airway Mallampati Class: II TM Dist: <=3cm Neck ROM: Limited Loose/Missing/Broken Teeth: No Heart: ok Lungs: ok Assessment and Plan Assessment Anesthesia Assessment: Anesthesia Plan Discussed and Chart Reviewed Final Anesthetic Review NPO: Yes ASA Class: II Final Preanesthetic Review: No Changes in Pt Med Stat, Meds/Allgs Chart Reviewed, Consent Obtained/Reviewed and Anes Risks/Benef Reviewed Patient Risk: Intermediate Procedure Risk: Low Anesthetic Plan Anesthetic Plan: GA and Agree w/ Assess. and Plan Disposition: Standard PACU
[2025-04-13] VITALS (8 sets, daily range): BP systolic 106–157; BP diastolic 60–81; PULSE 57–72; RESP 15–18; TEMP 36.1–36.3; O2SAT 93–98; BMI 29.2
[2025-04-13] MEDS: Lactated Ringers 1,000 ML 100 ML IVCONT (06:27)
--- NOTE | 2025-04-13 07:29 | P.OP_ITS ---
Operative Note Operative Note Date of Service: 04/13/25 Narrative: Preop diagnosis: Intrinsic sphincter deficiency, stress urinary incontinence Postop diagnosis: Intrinsic sphincter deficiency, stress urinary incontinence Procedure: Cystoscopy urethral bulking with bulkamid system at the proximal urethra Surgeon: Dr. Adan Swan Indications: The patient has lower urinary tract symptoms of stress urinary incontinence. This is a repeat urethral bulking procedure. Details of procedure: The patient was brought into the operating room placed on the OR table in supine position anesthesia was administered. Antibiotics confirmed. The patient was placed in lithotomy position prepped and draped in the usual sterile fashion. Safety time-out was done. A 14 Japanese straight catheter was used to send urine for culture. 2% lidocaine jelly was inserted transurethrally 10 mL. The 22 fr 11 cm cystoscope, with 0 degree lens was passed transurethrally, there was bulking noted from prior procedure. the bladder was filled with sterile water to 100 mL the bladder was visualized. With the sheath at the 11 o'clock position the needle was inserted to the 1 cm irving and 0.5 mL of gel was injected there was good bulking noted. This was repeated on the 4 o'clock position with 0.5 mL of gel injected. The 2nd needle was inserted into the sheath and an injection was done at the 8 o'clock position 1.0 mL. There was bulking of the mucosa noted with good coaptation. 12 fr cath was used to drain the bladder and then removed. The patient tolerated the procedure and was taken to recovery in stable condition. Complication: none EBL: minimal (<5 mL) Drains: none
--- NOTE | 2025-04-13 07:29 | MHC.SHP ---
Pre-Procedural Eval Section A - 24 Hr Update-Section A only Date of Service: 04/13/25 The patient is an INPATIENT: No The patient has been examined within 24 hours of the surgical procedure. The History & Physical has been completed within 30 days and I have reviewed it.: Yes Section B - Complete if H&P > 30 days Chief Complaint: Stress incontinence (female) (male) Allergies: Allergies Allergy/AdvReac Type Severity Reaction Status Date / Time No Known Allergies (No Known Allergy Verified 04/13/25 06:04 Allergies*) Plan Diagnosis/Plan: Unchanged I have reviewed the history and physical and performed a pertinent physical examination on my patient. No changes have occurred unless specified. Bulkamid, cystoscopy, I have discussed the risks of bulking injection to the proximal urethra to include but not limited to urine retention requiring a miller catheter, need to repeat the procedure, hematuria, and urgency. Time Spent With Patient Time: Total time managing care of this patient today ____ minutes.
== END 2025-04-13 09:58 | disposition home or self-care (01) ==
PROVIDERS: PCP Family Medicine; Visit Provider Urology
PROC: (CPT 51715; principal; 2025-04-13 07:30)
DX: N39.3 Stress incontinence (female) (male) (principal); N36.42 Intrinsic sphincter deficiency (ISD); R30.0 Dysuria; R33.9 Retention of urine, unspecified; F41.9 Anxiety disorder, unspecified; I10 Essential (primary) hypertension; E78.00 Pure hypercholesterolemia, unspecified; D75.839 Thrombocytosis, unspecified; K64.8 Other hemorrhoids; K59.00 Constipation, unspecified; Z79.899 Other long term (current) drug therapy; Z98.51 Tubal ligation status; Z98.890 Other specified postprocedural states; F17.210 Nicotine dependence, cigarettes, uncomplicated
CPT/HCPCS: 51715; 87086; J0690; J2003; J2405; J2704; J3010; L8606

== ENCOUNTER → 2025-04-13 05:44 | Outpatient (BNV) | payer MEDICAID, SELFPAY | PROVIDERS: PCP Family Medicine; Visit Provider Urology | DX: N36.42 Intrinsic sphincter deficiency (ISD) (principal); N39.3 Stress incontinence (female) (male) | CPT/HCPCS: 51715 ==

== ENCOUNTER 2025-04-22 14:46 | Outpatient (REF) | payer MEDICAID, SELFPAY ==
--- OUTSIDE RECORDS SUMMARY | 2025-04-16 10:30 | XMS_ITS | Encounter Summary ---
Author Organization [employer] Address [address] [facility] [address] [place] [address] Care Team Providers Care Gear Repair Supervisor Name Role Phone Rosa Lebron MD Primary Care Provider [phone] Reason for Visit * Reason Comments Filling Encounter Details Date Type Department Care Team ([facility] Contact Info) Description 04/16/2025 10:30 AM EDT Office Visit [facility] [address] [place], [place] [phone] Roberto Zaman [address] [place], [place] [phone] Social History Tobacco Use Types Packs/Day Years [...] as of this encounter Progress Notes * Roberto Zaman - 04/16/2025 10:30 AM EDT Dental procedures in this visit D2391 - RESIN-BASED COMPOSITE - 1 SURF, POSTERIOR 21 B(V) (Completed) Service provider: Roberto Zaman Billing provider: Otilio Wakefield DMD [id number] - RESIN-BASED COMPOSITE - 1 SURF, ANTERIOR 27 F(V) (Completed) Service provider: Roberto Zaman Billing provider: Otilio Wakefield DMD D2330 - RESIN-BASED COMPOSITE - 1 SURF, ANTERIOR 26 F(V) (Completed) Service provider: Roberto Zaman Billing provider: Otilio Wakefield DMD D2330 - RESIN-BASED COMPOSITE - 1 SURF, ANTERIOR 22 F(V) (Completed) Service provider: Roberto Zaman Billing provider: Otilio Wakefield DMD [id number] - CASE PRESENTATION, DETAILED AND EXTENSIVE TREATMENT PLANNING (Completed) Service provider: Roberto Zaman Billing provider: Otilio Wakefield DMD Patient ID: Arely Sun is a 50 y.o. female. Time Out: Date: 04/16/2025 Location: [facility] Tooth: #21, #22, #26, and #27 Procedure: Taoism Verified the above with patient, assistant analyst, and provider. Confirmed via patient's chart, intraorally and by radiographs. Bond Analyst: not applicable Composite jewish done on # #21, #22, #26, and #[address] Roberto Zaman Risk, benefits, and alternatives discussed with the patient. CONSENT FORM INITIALED & SIGNED BY THE PATIENT AND COUNTERSIGNED BY Dr. Roberto Zaman Medical history: Reviewed in EHR Vitals: There were no vitals taken for this visit. Allergies: Reviewed in EHR Medications: Reviewed in EHR ASA 2 - No local anesthetics used - Existing jewish and recurrent decay removed - Mylar strip/Matrix band and wedge used as needed - Desensitizer: Gluma - Etching done using 37% phosphoric acid. - author agent applied. - Composite jewish done using Filtek body/flowable composite, shade A2 - Anatomy and margins adjusted - Necessary reductions made. - Taoism smoothed and polished. - Post op instructions given Patient satisfied, left in stable condition Patient made aware possible post op sensitivity NV: Darwin Provider: Dr. Roberto Zaman Paradichlorobenzene Machine Operator: Nancy Carter Supervising dentist: Dr. Wakefield Note: Pt was not feeling well at the time of the appt, she reported had fallen at home and hitting her knee and hand. Pt was ask to reschedule but Pt insisted on getting dental work done. Pt left dental office in stable conditions with all questions answered. * tOilio Wakefield DMD - 04/16/2025 10:30 AM EDT I have reviewed the documentation and dental procedures made by the rendering provider, Roberto Zaman DDS, and approve their chart entries for this visit. Otilio Wakefield DMD documented in this encounter Plan of Treatment Upcoming Encounters Date Type Department Care Team (Late st Contact Info) Description 04/30/2025 12:45 PM EDT Office Visit [facility] [address] [place] [address] Rene Hammond 06/04/2025 2:00 PM EST Office Visit [facility] [address] [place] [address] Rosa Lebron MD [address] [place] [address] documented as of this encounter Procedures Procedure Name Priority Date/Time Associated Diagnosis Comments 21 B(V) RESIN-BASED COMPOSITE - 1 SURF, POSTERIOR Routine 04/16/2025 10:30 AM EDT 22 F(V) RESIN-BASED COMPOSITE - 1 SURF, ANTERIOR Routine 04/16/2025 10:30 AM EDT 26 F(V) RESIN-BASED COMPOSITE - 1 SURF, ANTERIOR Routine 04/16/2025 10:30 AM EDT 27 F(V) RESIN-BASED COMPOSITE - 1 SURF, ANTERIOR Routine 04/16/2025 10:30 AM EDT CASE PRESENTATION, DETAILED AND EXTENSIVE TREATMENT PLANNING Routine 04/16/2025 10:30 AM EDT documented in this encounter Visit Diagnoses Not on filedocumented in this encounter Additional Health Concerns Assessment Noted Time PHQ-9 Depression Total Score: 24 024 3:43 PM EDT documented as of this encounter Care Teams Gear Repair Supervisor Relationship Specialty Start Date End Date Rosa Lebron MD [address] [place] [id number] PCP - General Family Medicine 03/22/21 Susan Yañez Consulting Physician Hematology and Oncology 07/09/24 Santos Mcleod Nurse Practitioner Urology 07/09/24 Rose Benítez Shed HandServer Systems Administrator 12/23/24 documented as of this encounter
--- NOTE | 2025-04-22 | PFT_ITS ---
Indication: Dyspnea Spirometry FEV1 to FVC 83%; FEV1 2.36 L; FVC 2.85 L. No significant response to bronchodilators noted. Of note the FEF 12/08/2074 is decreased to 61% predicted suggesting small airways Lung Volumes Total lung capacity 85% predicted; residual volume is 3% predicted; expiratory reserve volume 24% predicted Diffusion Capacity DLCO 73% predicted Comparisons None Interpretation No obstructive nor restrictive ventilatory defects identified. No significant response to bronchodilators noted. Of note there appears to be some small airways disease which could be suggestive of asthma. Lung volumes are low normal with a decrease in the expiratory reserve volume which may be due to an elevated BMI. This also a mild diffusion impairment. If asthma is in the differential methacholine challenge may be helpful in assessing for hyperreactive airways. Clinical correlation warranted. MTDD
[2025-04-22 15:32] VITALS: PULSE 69; O2SAT 99
--- OUTSIDE RECORDS SUMMARY | 2025-04-22 16:17 | XMS_ITS | Encounter Summary ---
Author Organization [employer] Address [address] [place] [address] Care Team Providers Care Third Mate Name Role Phone Rosa Lebron MD Primary Care Provider [phone] Reason for Visit * Reason Comments Med Refill Encounter Details Date Type Department Care Team ([facility] st Contact Info) Description 03/17/2025 Refill [facility] [address] [place], [place] [phone] Rosa Lebron MD [address] [place], [place] [phone] Social History Tobacco Use Types Packs/Day Years [...] Description 04/30/2025 12:45 PM EDT Office Visit [facility] [address] [place] [address] Rene Hammond 06/04/2025 2:00 PM EST Office Visit [facility] [address] [place] [address] Rosa Lebron MD [address] [place] [address] documented as of this encounter Visit Diagnoses Not on filedocumented in this encounter Additional Health Concerns Assessment Noted Time PHQ-9 Depression Total Score: 24 024 3:43 PM EDT documented as of this encounter Care Teams Third Mate Relationship Specialty Start Date End Date Rosa Lebron MD [address] [place] [address] PCP - General Family Medicine 03/22/21 Susan Yañez Consulting Physician Hematology and Oncology 07/09/24 Santos Mcleod Nurse Practitioner Urology 07/09/24 Rose Benítez Wet Plant OperatorMaterials Intern 12/23/24 documented as of this encounter
--- OUTSIDE RECORDS SUMMARY | 2025-04-22 16:17 | XMS_ITS | Encounter Summary ---
Author Organization [employer] Address [address] [facility] [address] [place] [address] Care Team Providers Care Data Processing Control Clerk Name Role Phone Rosa Lebron MD Primary Care Provider [phone] Encounter Details Date Type Department Care Team (Late st Contact Info) Description 10/12/2024 Orders Only [facility] [address] [place] [address] Telma Hammond MD [address] [place], [place] [phone] Acute cough (Primary Dx) Social History Tobacco [...] Description 04/30/2025 12:45 PM EDT Office Visit [facility] [address] [place] [address] Rene Hammond 06/04/2025 2:00 PM EST Office Visit [facility] [address] [place] [address] Rosa Lebron MD [address] [place] [address] documented as of this encounter Visit Diagnoses Diagnosis Acute cough- Primary documented in this encounter Additional Health Concerns Assessment Noted Time PHQ-9 Depression Total Score: 24 024 3:43 PM EDT documented as of this encounter Care Teams Data Processing Control Clerk Relationship Specialty Start Date End Date Rosa Lebron MD [address] [place] [address] PCP - General Family Medicine 03/22/21 Susan Yañez Consulting Physician Hematology and Oncology 07/09/24 Santos Mcleod Nurse Practitioner Urology 07/09/24 Rose Benítez Moss BleacherSoda Fountain Operator 12/23/24 documented as of this encounter
--- OUTSIDE RECORDS SUMMARY | 2025-04-22 16:17 | XMS_ITS | Encounter Summary ---
Author Organization [employer] Address [address] [place] [address] Care Team Providers Care Medical Front Desk Coordinator Name Role Phone Rosa Lebron MD Primary Care Provider Reason for Visit * Reason Comments Med Refill Encounter Details Date Type Department Care Team ([facility] st Contact Info) Description 04/11/2025 Refill [facility] [address] [place], [place] [phone] Rosa Lebron MD [address] [place], [place] [phone] Social History Tobacco Use Types Packs/Day Years [...] Description 04/30/2025 12:45 PM EDT Office Visit [facility] [address] [place] [address] Rene Hammond 06/04/2025 2:00 PM EST Office Visit [facility] [address] [place] [address] Rosa Lebron MD [address] [place] [address] documented as of this encounter Visit Diagnoses Not on filedocumented in this encounter Additional Health Concerns Assessment Noted Time PHQ-9 Depression Total Score: 24 024 3:43 PM EDT documented as of this encounter Care Teams Medical Front Desk Coordinator Relationship Specialty Start Date End Date Rosa Lebron MD [address] [place] [address] PCP - General Family Medicine 03/22/21 Susan Yañez Consulting Physician Hematology and Oncology 07/09/24 Santos Mcleod Nurse Practitioner Urology 07/09/24 Rose Benítez Signing AgentSupervisor Drawing 12/23/24 documented as of this encounter
--- OUTSIDE RECORDS SUMMARY | 2025-04-22 16:17 | XMS_ITS | Clinical Summary ---
Author Organization [employer] Address [address] [facility] [address] [facility] [place] [address] Care Team Providers Care Fountain Attendant Name Role Phone Rosa Lebron MD Primary Care Provider [phone] Medications ferrous gluconate (Fergon) [phone] (38 Fe) [...] via telemedicine. She may be moving to [place], [place]. Anxiety 02/19/2022 Assessment & Plan (09/03/2022 9:57 PM EST): Patient with depressed mood, reports her therapist from [facility] is working on getting her [...] Center 09/26/2023 1:[address] [facility] Encounters Date Type Department Care Team Description 04/16/2025 10:30 AM EDT Office Visit [facility] [address] [place] [address] Roberto Zaman 04/13/2025 Orders Only GENERIC EXTERNAL DATA DEPARTMENT Provider, Generic External Data 04/13/2025 Travel 04/11/2025 Refill [facility] [address] [place] [address] Rosa Lebron MD 03/17/2025 Refill [facility] [address] [place] [address] Rosa Lebron MD 03/16/2025 9:30 AM EDT Office Visit [facility] [address] [place] [address] Roberto Zaman 03/15/2025 Travel 02/16/2025 Results Follow-Up [facility] [address] [place] [address] Rosa Lebron MD Chlamydia/Trichomona s/Neisseria gonorrhoeae, PCR, Urine, Hepatitis C Antibody with Reflex to HCV, RNA, Quantitative, Real-Time PCR, HIV-1/2 Antigen and Antibodies, Fourth Generation, with Reflexes, Additional followed-up results: 2 02/08/2025 3:30 PM EDT Office Visit [facility] [address] [place] [address] Rosa Lebron MD Acute cough (Primary Dx); Nicotine use disorder; Screening examination for STD (sexually transmitted disease) 02/08/2025 Travel 02/04/2025 Telephone [facility] [address] [place] [address] Rosa Lebron MD chart prep 01/29/2025 10:00 AM EDT Office Visit [facility] [address] [place] [address] Roberto Zaman 01/29/2025 Patient Outreach [facility] [address], [place] [phone] Rosa Lebron MD Care Coordination (C3CM/CHW STIVEN Ziegler f/u_graduated) 01/20/2025 9:00 AM EDT Office Visit [facility] [address] [place] [address] Roberto Zaman from Last 3 Months Immunizations Immunization Administration [...] Description 04/30/2025 12:45 PM EDT Office Visit [facility] [address] [place] [address] Rene Hammond 06/04/2025 2:00 PM EST Office Visit [facility] [address] [place] [address] Rosa Lebron MD [address] [place] [address] Health Maintenance Due Date Last Done Comments CT Colonography 1975 Colonoscopy 1975 FIT 1975 Sigmoidoscopy 1975 Family Planning (PISQ) 1992 FOBT 09/12/2024 09/12/2023 Depression Monitoring 11/11/2024 05/13/2024, 024 COVID-19 Vaccine (3 - season) 2025 03/12/2022, 02/12/2022 Influenza Vaccine (#1) 2025 , 05/26/2024, 04/26/2023, Additional history exists Dental Oral Exam 04/28/2025 10/26/2024, 05/31/2023 Dental Prophylaxis 04/28/2025 10/26/2024 DTaP/Tdap/Td Vaccines (2 - Td or Tdap) 08/15/2025 08/15/2015 SDOH Screening 10/02/2025 10/02/2024 Dental X-Ray: Bitewings 10/27/2025 10/27/19, 03/16/2024, 05/31/2023, Additional history exists Alcohol/Substance Use Screening 02/08/2026 02/08/2025 Disability Screening 02/08/2026 02/08/2025 Tobacco Screening 04/16/2026 04/16/2025 Dental X-Ray: Full Mouth 06/01/2026 05/31/2023 Mammogram [...] TREATMENT PLANNING Routine 04/16/2025 10:30 AM EDT 22 F(V) RESIN-BASED COMPOSITE - 1 SURF, ANTERIOR Routine 04/16/2025 10:30 AM EDT 26 F(V) RESIN-BASED COMPOSITE - 1 SURF, ANTERIOR Routine 04/16/2025 10:30 AM EDT 27 F(V) RESIN-BASED COMPOSITE - 1 SURF, ANTERIOR Routine 04/16/2025 10:30 AM EDT 21 B(V) RESIN-BASED COMPOSITE - 1 SURF, POSTERIOR Routine 04/16/2025 10:30 AM EDT CULTURE, URINE, ROUTINE Routine 04/13/2025 7:50 AM EDT CASE PRESENTATION, DETAILED AND EXTENSIVE [...] TO CROWN Routine 01/20/2025 9:00 AM EDT PROPHYLAXIS - ADULT Routine 10/26/2024 [...] Recently Relevant to Health Maintenance Results * Culture, Urine, Routine (04/13/2025 7:50 AM EDT) Urine Urine specimen from urinary conduit / Unknown 04/13/2025 7:50 AM EDT 04/13/2025 7:58 AM EDT Comment:Urine Cath Narrative [facility] - 04/14/2025 11:26 AM EDT Urine Culture No growth. Specimen Source: Urine Catheterized us Generic External Data Provider LAB MICROBIOLOGY - GENERAL ORDERABLES Final Result Performing Organization Address City/State/[facility] Co de Phone Number [facility] [address] [place] [phone] * XR Chest 2 Views (02/12/2025 1:07 PM EDT) Anatomical Region Laterality Modality Chest Radiographic Gena ging 02/12/2025 1:07 PM EDT Narrative 02/12/2025 1:20 PM EDT [address] [address] XRay Report Signed Patient: Arely Sun MR#: [id number] : 1975 Acct:[id number] Age/Sex: 49 / F ADM Date: 02/12/25 Loc: [facility] Attending Dr: Rsoa Lebron MD Ordering Physician: Rosa Lebron MD Date of Service: 02/12/25 Procedure(s): XR chest 2V Accession Number(s): [id number] cc: Rosa Lebron MD EXAMINATION: XR CHEST CLINICAL INFORMATION: 49 yo F with intermittent cough and hx of smoking, [place] [facility] [place]: April 10, [place]. TECHNIQUE: 2 views of the chest were obtained. FINDINGS: No consolidation, pleural fissure pneumothorax. No hyperinflation. Cardiomediastinal silhouette size is normal. 10% superior endplate compression deformities, old, thoracic spine. S-shaped curvature of the thoracolumbar spine. XR/XR chest 2V IMPRESSION: No acute airspace disease. Mild scoliosis, thoracolumbar spine. Electronically signed by: Joe Cabrera MD 02/12/2025 01:16 PM EDT RP Dictated By: Joe Gregorio MD Signed By: <Electronically signed by Joe Braxton MD in OV> 02/12/25 1316 DD/ 1307 TD/TT: 02/12/25 1311 Recessing Machine Operator: Procedure Note Donotuseinterpreter, Image - 02/12/[address] [address] XRay Report Signed Patient: Jesus uSn#: [id number] : 1975Acct:[id number] Age/Sex: 49 / FADM Date: 02/12/25 Loc: HO.XRAY Attending Dr: Rosa Lebron MD Ordering Physician: Rosa Lebron MD Date of Service: 02/12/25 Procedure(s): XR chest 2V Accession Number(s): [id number] cc: Rosa Lebron MD EXAMINATION: XR CHEST CLINICAL INFORMATION: 49 yo F with intermittent cough and hx of smoking, [place] [facility] [place]: April 10, 2019. TECHNIQUE: 2 views of the chest were obtained. FINDINGS: No consolidation, pleural fissure pneumothorax. No hyperinflation. Cardiomediastinal silhouette size is normal. 10% superior endplate compression deformities, old, thoracic spine. S-shaped curvature of the thoracolumbar spine. XR/XR chest 2V IMPRESSION: No acute airspace disease. Mild scoliosis, thoracolumbar spine. Electronically signed by: Joe Cabrera MD 02/12/2025 01:16 PM EDT RP Dictated By: Joe Gregorio MD Signed By: <Electronically signed by Joe Braxton MDin OV> 02/12/25 1316 DD/ 1307 TD/TT: 02/12/25 1311 Recessing Machine Operator: Rosa Lebron MD IMG XR PROCEDURES Edited Resu lt - Final * Syphilis Screen (02/12/2025 12:49 PM EDT) Syphilis Screen Nonreactive Nonreactive [facility] Blood 02/12/2025 12:4 9 PM EDT 02/12/2025 12:49 PM EDT Rosa Lebron MD LAB BLOOD ORDERABLES Final Re sult Performing Organization Address [facility]/ZIP Co de Phone Number [facility] [address] [place] [phone] * Hepatitis C Antibody with Reflex to HCV, RNA, Quantitative, Real-Time PCR (02/12/2025 12:49 PM EDT) [facility] Hepatitis C Antibody Nonreactive Nonreactive [facility] Comment:Antibodies to HCV no t detected; does not exclude early acuteHCV infection. Blood Venous blood specimen / Unknown 02/12/2025 12:49 PM EDT 02/12/2025 12:49 PM EDT Rosa Lebron MD LAB BLOOD ORDERABLES Final Re sult Performing Organization Address [facility] Co de Phone Number [facility] [address] [place] [phone] * HIV-1/2 Antigen and Antibodies, Fourth Generation, with Reflexes (02/12/2025 12:49 PM EDT) Pathologist [facility] HIV AB/AG Nonreactive Nonreactive [facility] Comment:HIV-1 p24 Ag and/or HIV-1/HIV-2 Ab not detected.A test result that is nonreactive does not exclude thepossibility of exposure to or infection with HIV-1 and/orHIV-2. Nonreactive results in this assay for individualswith prior exposure to HIV-1 and/or HIV-2 may be due toantigen and antibody levels that are below the limit ofdetection of this assay.The [employer] HIV Ag/Ab Combo assay result andsupplemental assay results should be interpreted inconjunction with the patient's clinical presentation,history and other laboratory results. If the results areinconsistent with clinical evidence, additional testing issuggested to confirm the result. Blood Venous blood specimen / Unknown 02/12/2025 12:49 PM EDT 02/12/2025 12:49 PM EDT Rosa Lebron MD LAB BLOOD ORDERABLES Final Re sult Performing Organization Address [facility] Co de Phone Number [facility] [address] [place] [phone] * Hepatitis B Surface Antibody, Qualitative (02/12/2025 12:49 PM EDT) Pathologist [facility] ~Hepatitis B Surface Antibody REACTIVE Nonreactive [facility] Comment:REACTIVE: > 11.99 mI U/mL Blood Venous blood specimen / Unknown 02/12/2025 12:49 PM EDT 02/12/2025 12:49 PM EDT Rosa Lebron MD LAB BLOOD ORDERABLES Final Re sult Performing Organization Address [facility] Co de Phone Number [facility] [address] [place] [phone] * Chlamydia/Trichomonas/Neisseria gonorrhoeae, PCR, Urine (02/08/2025 12:00 AM EDT) [facility] CT PCR, Urine NOT DETECTED Not Detect. [facility] Comment:A not detected test result does [...] NG PCR, Urine NOT DETECTED Not Detect. [facility] Comment:A not detected test result does [...] Urine (Urine, Random) 02/08/2025 02/08/2025 us Rosa eLbron MD LAB URINE ORDERABLES Final Re sult [facility] [address] [place] [phone] * (ABNORMAL) Lipid Panel, Standard (07/27/2024 11:56 AM EST) Triglycerides 210(H) <150 mg/dL [facility] Comment:Desirable Triglyceri de: less than 150 mg/dLBorderline High Triglyceride 150-199 mg/dLHigh Triglyceride: 200-499 mg/dLVery High Triglyceride: greater than or equal to 5OO mg/dL Cholesterol 236(H) <200 mg/dL [facility] Comment:Desirable Cholestero l: less than 200 mg/dLBorderline High Cholesterol: 200-239 mg/dLHigh Cholesterol: greater than 239 mg/dL LDL Cholesterol Calculated 155(H) <100 mg/dL [facility] Comment:Desirable LDL: less than 100 mg/dLNear Optimal/Above Optimal LDL: 110- 129 mg/dLBorderline High LDL: 130-159 mg/dLHigh LDL: 160-189 mg/dLVery High LDL: greater than or equal to 190 mg/dL HDL Cholesterol 39(L) >40 mg/dL [facility] Comment:Desirable HDL: great er than 40 mg/dL Note: This HDL assay may give artificially low results in patients with liver disease. Blood Venous blood specimen / Unknown 07/27/2024 11:56 AM EST 07/27/2024 11:56 AM EST us Rosa Lebron MD LAB BLOOD ORDERABLES Final Re sult [facility] [address] [place] [phone] * BI Mammogram Screening Tomosynthesis Bilateral (07/06/2024 12:38 PM EST) Anatomical Region Laterality Modality Breast Bilateral Mammography 07/06/2024 12:3 8 PM EST Narrative 07/16/2024 11:22 AM EST [address] [place] [address] Mammography Report Signed Patient: Arely Sun MR#: [id number] : 1975 Acct:[id number] Age/Sex: 49 / F ADM Date: 07/06/24 Loc: HO.MAMMO Attending Dr: Rosa Lebron MD Ordering Physician: Rosa Lebron MD Results: 1Nega tive Date of Service: 07/06/24 Follow Up: 1 Year From Orig inal Mammogram Procedure(s): MM tomosynthesis screening BI Accession Number(s): [id number] cc: Rosa Lebron MD EXAMINATION: MM SCREENING [...] 07/16/24 1119 DD/ 1238 TD/TT: 07/06/24 1255 Recessing Machine Operator: Procedure Note Donotuseinterpreter, Image - [facility]/16/[facility] [address] [place] [address] Mammography Report Signed Patient: Arely SunMR#: [id number] : 1975Acct:[id number] Age/Sex: 49 / FADM Date: 07/06/24 Loc: HO.MAMMO Attending Dr: Rosa Lebron MD Ordering Physician: Rosa Lebron MDResults: 1Nega tive Date of Service: 07/06/24Follow Up: 1 Year From Orig inal Mammogram Procedure(s): MM tomosynthesis screening BI Accession Number(s): [id number] cc: Rosa Lebron MD EXAMINATION: MM SCREENING [...] 07/16/24 1119 DD/ 1238 TD/TT: 07/06/24 1255 Recessing Machine Operator: us Rosa Lebron MD IMG BI PROCEDURES Final Resul t * Cologuard?? colon cancer screening (09/12/2023 7:40 AM EST) Cologuard Result Negative Negative 09/20/19 1:22 AM EST [employer] (CLIA #:[id number]) Comment: NEGATIVE TEST RESULT. A negative Cologuard [...] (Sharon Olvera al, N Engl J Med 2014;370(14):0454-2145) The normal value (reference range) for this assay is negative. COLOGUARD RE-SCREENING RECOMMENDATION: Periodic colorectal cancer screening is an important part of preventive healthcare for asymptomatic individuals at average risk for colorectal cancer. Following a negative Cologuard result, the [place] [employer] Society and U.S. Multi-Society Task Force screening guidelines recommend a Cologuard re-screening interval of 3 years. References: [place] [employer] Guideline for Colorectal Cancer Screening: https://www.cancer.org/cancer/xbntt-lkfemf-lpftbv/dhuiotlxe-yahxnipmg-xbzlgeg/ac s-rec ommendations.html.; Yomi DK, Christine REID, Delores SpringerK, Colorectal Cancer Screening: Recommendations for Physicians and Patients from the U.S. Multi-Society Task Force on Colorectal Cancer Screening , Am J Gastroenterology 2017; 112:4658-0120. TEST DESCRIPTION: Composite algorithmic analysis of stool [...] Jane et al, N Engl J Med 2014;370(14):0914-2204.) Cologuard may produce a false negative or false positive result (no colorectal cancer or precancerous polyp present at colonoscopy follow up). A negative Cologuard test result does not guarantee the absence of CRC or advanced adenoma (pre-cancer). The current Cologuard screening interval is every 3 years. ([place] [employer] Society and U.S. Multi-Society Task Force). Cologuard performance data in a 10,000 patient pivotal study using colonoscopy as the reference method can be accessed at the following location: www.[employer].Cryptmint/results. Additional description of the Cologuard test process, warnings and precautions can be found at www.Medikidz. Stool specimen (specimen) 09/12/2023 7:40 AM EST 09/13/2023 11:11 AM EST Rosa Lebron MD LAB MOLECULAR DIAGNOSTICS ORD ERABLES Final Result Performing Organization Address City/[facility]/ZIP Co de Phone Number [employer] (CLIA #:[id number]) [place] [address], * HPV mRNA E6/E7 w/Reflex to HPV Genotypes 16, 18/45 (07/30/2022 2:13 PM EST) HPV nRNA E6/E7 Not Detected Not Detected [facility] Comment:Methodology: Transcr iption-Mediated AmplificationThis assay detects E6/E7 viral messenger RNA (mRNA) from 14high-risk HPV types (16,18,31,33,35,39,45,51,52,56,58,59,66,68).Cervical sources are required for HPV testing.If a vaginal source from a patient who has had atotal hysterectomy with removal of cervix wassubmitted, please contact the testing laboratoryfor alternative testing options.For additional information, please refer tohttp://education.[employer] Media/faq/SML508d7(This link if provided for information/educational purposes only.)THIS TEST WAS PERFORMED AT:[facility] [place] [address] ([address] [phone] VASQUEZ MD HPV mRNA E6/E7 PAP [facility] HPV 16 RNA [facility] HPV 18/45 RNA [facility] 07/30/2022 2:13 PM EST 07/30/2022 4:30 PM EST [facility] External Provider LAB CYT OLOGY ORDERABLES Final Result Performing Organization Address [facility]/ZIP Co de Phone Number [facility] [address] [place] [phone] * Pap Smear (07/30/2022 2:13 PM EST) 07/30/2022 2:13 PM EST 07/30/2022 4:30 PM EST Kelly [facility] - 08/06/2022 1:00 PM EST ----- ------- Name: Arely Sun Age/Sex: 47/F : 1975 Unit#: [id number] Attend Dr: Shital Hummel CNM Re07/30/22 Status: [facility] REF Location: [facility] Disch: ----- ------- SPEC : [id number] RECD: 07/30/22-1630 STATUS: DENILSON WISE NUM: [id number] [place]: 07/30/22-[address] [facility] [address]: Shital Hummel [facility] ENTERED: 07/30/22-164 SP TYPE: Pap Smr OT DR: Rosa Lebron MD ORDERED: Pap Smear Interpretation Satisfactory for evaluation. Negative for intraepithelial lesion or malignancy. Coccobacilli consistent with shift in vaginal ghassan. HPV mRNA E6/E7: NOT DETECTED This assay detects E6/E7 viral messenger RNA (mRNA) from 14 high-risk HPV types (16, 18, 31, 33, 35, 39, 45, 51, 52, 56, 58, 59, 66, 68) HPV testing performed by [facility], [place], [place]. See reference laboratory portion of the EMR for entire report. Clinical Information LMP: Not sure Previous PAP test: 06/27/21, WNL Material Received ThinPrep-Cervical Copies To: Shital Hummel [address] [place] [place] [address] Rosa Lebron MD [address] [place] [address] ----- ------- Signed (signature on file) Rosa Abel Romaine 08/06/22 1300 ----- ------- END OF REPORT [facility] External Provider LAB [facility] ORDERABLES Final Result [facility] [address] [place] [phone] from Last 3 Months or Most Recently Relevant to Health Maintenance [facility] AD[place] Care Teams Fountain Attendant Relationship Specialty Start Date End Date Rosa Lebron MD [address] [place] [phone] PCP - General Family Medicine 03/22/21 Susan Yañez Consulting Physician Hematology and Oncology 07/09/24 Santos Mcleod Nurse Practitioner Urology 07/09/24 Rose Benítez Stranding Machine OperatorShingle Cutter 12/23/24
--- OUTSIDE RECORDS SUMMARY | 2025-04-22 16:17 | XMS_ITS | Encounter Summary ---
Author Organization [employer] Address [address] [facility] [address]t [place] [address] Care Team Providers Care Software Development Test Engineer Name Role Phone Rosa Lebron MD Primary Care Provider [phone] Encounter Details Date Type Department Care Team ([facility] Contact Info) Description 04/16/2023 Orders Only [facility] [address] [place], [place] [phone] Provider, MD Nano Social History Tobacco Use [...] Description 04/30/2025 12:45 PM EDT Office Visit [facility] AD[facility] [address] [place], [place] [phone] Rene Hammond 06/04/2025 2:00 PM EST Office Visit [facility] MED & PEDS [address] [place], [place] [phone] Rosa Lebron MD [address] [place], [place] [phone] documented as of this encounter Procedures Procedure [...] documented as of this encounter Care Teams Software Development Test Engineer Relationship Specialty Start Date End Date Rosa Lebron MD [address] [place] [phone] PCP - General Family Medicine 03/22/21 Susan Yañez Consulting Physician Hematology and Oncology 07/09/24 Santos Mcleod Nurse Practitioner Urology 07/09/24 Rose Benítez Dairy Equipment SpecialistRectifier Operator 12/23/24 documented as of this encounter
--- OUTSIDE RECORDS SUMMARY | 2025-04-22 16:17 | XMS_ITS | Encounter Summary ---
Author Organization [employer] Address [address] [place] [address] Care Team Providers Care Lead Generation Representative Name Role Phone Rosa Lebron MD Primary Care Provider [phone] Encounter Details Date Type Department Care Team (Late st Contact Info) Description 06/07/2023 Abstract [facility] ADULT DENTAL [address] [place], [place] [phone] Nagi Conway DDS [address] [place], [place] [phone] Social History Tobacco Use Types Packs/Day Years [...] the past 12 months, has t he [employer], gas, oil or water [employer] threatened to shut off services in your [...] Description 04/30/2025 12:45 PM EDT Office Visit [facility] AD[facility] [address] [place] [address] Rene Hammond 06/04/2025 2:00 PM EST Office [facility] PEDS [address] [place] [address] Rosa Lebron MD [address] [place] [address] documented as of this encounter Visit Diagnoses Not on filedocumented in this encounter Additional Health Concerns Assessment Noted Time PHQ-9 Depression Total Score: 12 023 2:24 PM EST documented as of this encounter Care Teams Lead Generation Representative Relationship Specialty Start Date End Date Rosa Lebron MD [address] [place] [phone] PCP - General Family Medicine 03/22/21 Susan Yañez Consulting Physician Hematology and Oncology 07/09/24 Santos Mcleod Nurse Practitioner Urology 07/09/24 Rose Benítez Resident Care TechnicianNeuroradiologist 12/23/24 documented as of this encounter
--- OUTSIDE RECORDS SUMMARY | 2025-04-22 16:17 | XMS_ITS | Clinical Summary ---
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 It is not the complete legal health record.[facility]
--- OUTSIDE RECORDS SUMMARY | 2025-04-22 16:17 | XMS_ITS | Encounter Summary ---
Author Organization [employer] Address [address] [facility] [address] [place] [address] Care Team Providers Care Outpatient Clerk Name Role Phone Rosa Lebron MD Primary Care Provider [phone] Reason for Visit * Reason Comments Med Refill Encounter Details Date Type Department Care Team ([facility] st Contact Info) Description 12/06/2023 Refill [facility] [address] [place], [place] [id number] Rosa Lebron MD [address], [place] [phone] Social History Tobacco Use Types Packs/Day Years [...] Description 04/30/2025 12:45 PM EDT Office Visit [facility] [address] [place] [address] Rene Hammond 06/04/2025 2:00 PM EST Office Visit [facility] MED [facility] PED[facility] [address] [place] [address] Roas Lebron MD [address] [place] [address] documented as of this encounter Visit Diagnoses Not on filedocumented in this encounter Additional Health Concerns Assessment Noted Time PHQ-9 Depression Total Score: 12 023 2:24 PM EST documented as of this encounter Care Teams Outpatient Clerk Relationship Specialty Start Date End Date Rosa Lebron MD [address] [place] [id number] PCP - General Family Medicine 03/22/21 Susan Yañez Consulting Physician Hematology and Oncology 07/09/24 [facility] Nurse Practitioner Urology 07/09/24 Rose Benítez Director MetabolismJewelry Mold Maker 12/23/24 documented as of this encounter
== END 2025-04-22 14:47 | disposition home or self-care (01) ==
LOC: HO.RESP 14:46
PROVIDERS: PCP Family Medicine; Visit Provider Family Medicine
DX: R05.1 Acute cough (principal)
CPT/HCPCS: 94010; 94640; 94727; 94729

== ENCOUNTER → 2025-04-22 14:50 | Outpatient (BNV) | payer MEDICAID, SELFPAY | PROVIDERS: PCP Family Medicine; Visit Provider Hospitalist | DX: R06.00 Dyspnea, unspecified (principal) | CPT/HCPCS: 94060; 94727; 94729 ==